=== PATIENT | female | born 1970 | race Caucasian/White ===

== ENCOUNTER 2018-11-27 20:56 | Emergency (ER) | payer MEDICAID ==
[~2018-11-27] VITALS: Ht 160 cm; Wt 165.6 kg
[2018-11-27 21:03] VITALS: Ht 160 cm; Wt 165.6 kg
[2018-11-28 01:52] VITALS: BP 129/89
== END 2018-11-28 01:52 | disposition home or self-care (01) ==
LOC: ED 20:56
DX: E11.40 Type 2 diabetes mellitus with diabetic neuropathy, unspecified (principal); M19.90 Unspecified osteoarthritis, unspecified site; E66.01 Morbid (severe) obesity due to excess calories; Z68.44 Body mass index [BMI] 60.0-69.9, adult; Z85.3 Personal history of malignant neoplasm of breast
CPT/HCPCS: Q0092

== ENCOUNTER 2018-12-10 10:54 | Emergency (ER) | payer MEDICAID ==
[~2018-12-10] VITALS: Ht 160 cm; Wt 148.3 kg
[2018-12-10 11:00] VITALS: Ht 160 cm; Wt 148.3 kg
[2018-12-10 11:43] LABS: BASOPHIL % 0.7 % (0-2); PLATELET COUNT 230 x10^3mcL (130-400); RED CELL DISTRIBUTION WIDTH 13.1 % (11.5-14.5)
[2018-12-10 12:00] LABS: CALCIUM 9.1 mg/dL (8.5-10.1); CARBON DIOXIDE 32.4 mmol/L (21-32); CHLORIDE SERUM 102 mmol/L (98-107); CREATININE SERUM 0.7 mg/dL (0.6-1.0); GFR1 > 60 mL/min; GLUCOSE SERUM 230 mg/dL (74-106); POTASSIUM SERUM 4.6 mmol/L (3.5-5.1); SODIUM SERUM 140 mmol/L (136-145)
[2018-12-10 12:05] LABS: ALBUMIN 3.8 g/dL (3.4-5.0); ALKALINE PHOSPHATASE 84 U/L (46-116); ALT/SGPT 50 U/L (14-59); AST/SGOT 25 U/L (15-37); BILIRUBIN TOTAL 0.3 mg/dL (0.20-1.00)
[2018-12-10 13:15] VITALS: BP 133/91
== END 2018-12-10 13:15 | disposition home or self-care (01) ==
LOC: ED 10:54
DX: R07.89 Other chest pain (principal); R10.32 Left lower quadrant pain; R50.9 Fever, unspecified; E11.9 Type 2 diabetes mellitus without complications; J44.9 Chronic obstructive pulmonary disease, unspecified; Z88.5 Allergy status to narcotic agent; Z98.890 Other specified postprocedural states
CPT/HCPCS: 36415; J1885

== ENCOUNTER 2018-12-17 16:06 | Inpatient (IN) | payer MEDICAID ==
[~2018-12-17] VITALS: Ht 160 cm; Wt 133.9 kg
--- NOTE | 2018-12-17 16:40 | NUR ---
PT PRESENTS TO ED WITH C/O OF RT SIDED FLANK PAIN. PT STS PAIN BEGAN X1 WK AGO. PT STS SHE HAS HAD EPISODES OF N/V "FOR WEEKS". PT WAS UNABLE TO AMBULATE FROM CAR TO GURNEY WITHOUT WHEELCHAIR ASSISTANCE. PT ALSO HAS MULTIPLE OTHER C/O HEAD ACHE, BILATERAL ARM PAIN, AND BACK PAIN. PT ALSO STS SHE HAS FELT HOT, BUT HAS NOT BEEN ABLE TO TAKE TEMP. PT AAOX4, RESP E/U, ON MONITOR, NO ACUTE DISTRESS NOTED AT THIS TIME.
[2018-12-17 17:27] LABS: BASOPHIL % 0.5 % (0-2); PLATELET COUNT 220 x10^3mcL (130-400); RED CELL DISTRIBUTION WIDTH 12.9 % (11.5-14.5)
[2018-12-17 17:30] LABS: CARBON DIOXIDE 30.8 mmol/L (21-32); CHLORIDE SERUM 102 mmol/L (98-107); CREATININE SERUM 0.9 mg/dL (0.6-1.0); GFR1 > 60 mL/min; GLUCOSE SERUM 143 mg/dL (74-106); POTASSIUM SERUM 3.9 mmol/L (3.5-5.1); SODIUM SERUM 141 mmol/L (136-145)
--- NOTE | 2018-12-17 17:30 | NUR ---
PT C/O DRY MOUTH BUT KEEPS REFUSING WATER TO DRINK. PT STS SHE NEEDS TO GO TO THE BATHROOM. PT GIVEN BED ZAMBRANO TO USE BUT STS ITS TOO PAINFUL TO USE. PT WAS ASKED IF SHE STILL NEEDED TO USE THE RESTROOM, PT STATED NO.
[2018-12-17 17:35] LABS: ALBUMIN 4.1 g/dL (3.4-5.0); ALKALINE PHOSPHATASE 93 U/L (46-116); ALT/SGPT 48 U/L (14-59); AST/SGOT 24 U/L (15-37); BILIRUBIN TOTAL 0.3 mg/dL (0.20-1.00); LIPASE 92 IU/L (73-393); TOTAL PROTEIN, SERUM 7.6 g/dL (6.4-8.2)
[2018-12-17 18:16] LABS: UA SPECIFIC GRAVITY >=1.030 (1.005-1.035); microscopic required? YES; urine erythrocyte NEGATIVE (NEGATIVE)
--- NOTE | 2018-12-17 18:47 | NUR ---
AT BEDSIDE TO DISCUSS PT PLAN OF CARE.
--- NOTE | 2018-12-17 19:12 | NUR ---
REPORT GIVEN TO MARTINA MOLINA TO ASSUME CARE OF PT.
--- NOTE | 2018-12-17 19:24 | NUR ---
PT MEDICATED PER ORDER. PT VERBALIZED UNDERSTANDING OF MEDICATION TEACHING. SEE EMAR FOR DETAILS.
[2018-12-17 19:39] LABS: CHOLESTEROL/HDL RATIO 6.4; MAGNESIUM 1.9 mg/dL (1.8-2.4); PHOSPHOROUS 4.1 mg/dL (2.5-4.9)
[2018-12-17] MEDS ORDERED: NAPROXEN500 MG PO (19:45)
[2018-12-17] MEDS ORDERED: NEU300 PO (19:46)
[2018-12-17] MEDS ORDERED: ONDANSETRON4 M3 PO (19:46)
[2018-12-17] MEDS ORDERED: TRAMADOL HCL50 MG PO (19:46)
[2018-12-17] MEDS ORDERED: LEVEMIR100 U/M1 (19:47)
--- NOTE | 2018-12-17 19:57 | NUR ---
PT LAYING IN BED IN POSITION OF COMFORT. PT HAS EYES CLOSED AND DOES NOT BE APPEAR TO BE IN SEVER PAIN. FRIEND AT BEDSIDE. RESP E/U. PT MEDICATED PER ORDER. WILL CONTINUE TO MONITOR.
--- NOTE | 2018-12-17 20:13 | NUR ---
REPORT CALLED TO WILLOW MACK TO ASSUME CARE. RN AWARE OF FLUIDS RUNNING ON TRANSFER .
[2018-12-17 20:23] LABS: AMPHETAMINE QUAL UR NONE DETECTED (See below)
--- NOTE | 2018-12-17 20:30 | NUR ---
RECEIVED PT VIA [facility] FROM E/D, ACCOMPANIED BY RN AND TRANSPORTER. PT A/A/O X 4, CALM, COOPERATIVE; C/O CONSTANT THROBBING H/A 01/31. PT ABLE TO AMBULATE WITHOUT GAIT OR BALANCE IMPAIRMENT, BUT REFUSES TO FURTHER WALK AFTER REACHING BED 2/2 PAIN; ALSO C/O CONSTANT ACHING TO B ARMS AND BACK 01/31. DENIES CHEST PAIN OR DISCOMFORT AT THIS TIME. LUNGS CTAB, CHEST RISING EVENLY, SOB, SHALLOW-BREATHING, 2LNC, 95%. ABD FIRM, DISTENDED, TENDERNESS TO RLQ AND R FLANK (CONSTANT, SHARP, 01/31), NORMOACTIVE BOWEL SOUNDS X 4 QUADS, LAST BM 12/17/18, SOFT. VOIDS FREELY, NO DYSURIA, STATES THAT SHE PASSED A STONE TODAY. IV SITE RAC 20G, CDI. ORIENTED PT TO ROOM, BED CONTROLS, CALL LIGHT SYSTEM. SIDE RAILS UP X 2, BED IN LOW POSITION. WILL ENDORSE TO MARTINA DAUGHERTY.
--- NOTE | 2018-12-17 20:44 | NUR ---
PT TRANSFERRED TO MED SURG FLOOR VIA GURNEY ACCOMPANIED BY EMT. NO S/S OF DISTRESS. RESP E/U. RN AWARE OF FLUIDS CONTINUING TO RUN. RN AT BEDSIDE TO ASSUME CARE OF PATIENT. IV SITE PATENT, NO S/S OF INFILTRATION.
[2018-12-17 21:36] VITALS: BP 93/60
--- NOTE | 2018-12-17 22:07 | NUR ---
PT C/O STABBING PAIN TO ABD 10/10. MEDICATED WITH NORCO.
--- NOTE | 2018-12-17 22:52 | NUR ---
ZOFRAN GIVEN FOR NAUSEA.
[2018-12-18] VITALS (10 sets, daily range): BP systolic 78–106; BP diastolic 38–73
--- NOTE | 2018-12-18 05:30 | NUR ---
PT C/O ABD PAIN 04/02. NORCO GIVEN.
[2018-12-18 06:57] LABS: BASOPHIL % 0.2 % (0-2); PLATELET COUNT 214 x10^3mcL (130-400); RED CELL DISTRIBUTION WIDTH 13.4 % (11.5-14.5)
--- NOTE | 2018-12-18 07:00 | NUR ---
PT RESTING IN BED. NO SOB ON O2 2L VIA NC. ON AND OFF NAUSEA/VOMITING. REFUSED ZOFRAN AT THIS TIME. NPO EXCEPT MEDS. SAFETY MEASURES MAINTAINED. CALL LIGHT WITHIN REACH. WILL ENDORSE CONTINUITY OF CARE TO ONCOMING RN.
[2018-12-18 07:15] LABS: CALCIUM 8.3 mg/dL (8.5-10.1); CARBON DIOXIDE 17.5 mmol/L (21-32); CREATININE SERUM 2.3 mg/dL (0.6-1.0); MAGNESIUM 1.6 mg/dL (1.8-2.4); PHOSPHOROUS 2.6 mg/dL (2.5-4.9); POTASSIUM SERUM 4.1 mmol/L (3.5-5.1)
--- NOTE | 2018-12-18 08:00 | NUR ---
RECEIVED PATIENT A/A/OX4; SPEECH CLEAR. NO TELE MONITOR. BREATHING SOUND DIMINISHED MARY BASES. O2 SAT 96% ON 2L VIA N/C. ABD OBESE/SOFT/TENDERNESS. C/O ABD PAIN ON 12/31. NORCO GIVEN AT 0540 BY NOC NURSE. NPO. IVF OF NS 150CC/HR. IV SITE TO RAC INTACT. URINE INCONT TIME. C/O N/V. DACK GREEN VOMITUS NOTED. CALL LIGHT IN REACH. NPO FOR SURGEON CONSULTATION AND POSSIBLE SURGERY.
--- NOTE | 2018-12-18 08:56 | NUR ---
DR. VARGAS AND MEDICAL TEAM MADE PASTOR ROUND. AWARE OF PATIENT'S ABD PAIN, BP LOW AND LACTIC ACID =7.4. ORDERED TO TRANSFER TO ICU.
--- NOTE | 2018-12-18 10:16 | NUR ---
PATIENT C/O ABD PAIN 01/31. DR. LAWSON AWARE OF. NORCO 7.5/325 PO GIVEN PER ORDER.
--- NOTE | 2018-12-18 10:38 | NUR ---
Discount pharmacy card and list to low cost medical clinics given to patient by Nilda.
--- NOTE | 2018-12-18 11:30 | NUR ---
TRIED SECOND IV INSERTION X2 BUT NOT SUCCESSFUL.
--- NOTE | 2018-12-18 12:00 | NUR ---
TRASFERED PATIENT TO ICU5, REPORT GIVEN TO MARTINA HERNANDEZ.
--- NOTE | 2018-12-18 12:10 | NUR ---
RECEIVED PT TRANSFERED FROM [facility] UNIT WITH PRIMARY NURSE AT BED SIDE. PT IS AA/O X4, PT COMPLAINING SEVER ABD PAIN AND NAUSEA. MOVEMENT INCREASING THE PAIN. PT IS BREATHIN ON O2 3L VIA NC, SHALLOW BREATHING. PT IS WAITING FOR SURGERY. CONNECT PT TO PRODUCT SUPPORT MANAGER, PT'S BP 89/38 (49), HR 107 BPM. IV BOLUS IS INFUSING.
--- NOTE | 2018-12-18 12:20 | NUR ---
ATTEMPED TO INSERT NGT, BUT UNSUCCESS. OR NURSE AT BED SIDE.
--- NOTE | 2018-12-18 12:45 | NUR ---
WELDING PANTOGRAPH MACHINE OPERATOR AT BEDSIDE FOR TYPE AND SCREEN.
--- NOTE | 2018-12-18 13:16 | NUR ---
PT TRANSFERRING TO OR, ZO RN FROM OR AND OTHER OR TECH AT BEDSIDE PUTTING CARDIC MONITOR AND PORTABLE O2 FOR SURGERY. B/P 88/55, MAP 68, HR 98 91% ON 3LO2 VIA NASAL CANNULA. PT IS AAOX4 ABLE TO FOLLOW VERBAL COMMANDS AND VERBALIZE NEEDS. PT IS PALE AND DIAPHORETIC. VANCO RUNNING AT 125ML/HR.
--- NOTE | 2018-12-18 16:50 | NUR ---
RECEIVED PT BACK FROM OR. PT IS INTUBATED 7.5 ETT, 24CM LL. PT HAD EXPRO LAP WITH BOWEL RESECTION WITH MID ABD LINE INCISION, CLOSED WITH SUTURE SECTION, TENSION SUTURE, 4X4 AND ABD PAD PER OR REPORT. SUNI DRAIN X 2 RLQ, COLONOSTOMY ON LQ, SEROUS DRAINAGE NOTED. RT SET PT ON VENT AC MODE: PEEP 5, VT 500, FIO2 100%, RR 14. MENON CATHETER IN PLACE, DRAINING VIA GRAVITY. PT IS AROUSABLE WITH AUDITORY AND TACTILE STIMULI. WILL CONTINUE TO MONITOR.
--- NOTE | 2018-12-18 17:17 | NUR ---
LOW INTERMITTENT SUCTION TO NG TO L NARES PER ORDER, DARK GREEN OUTPUT. 20ML OF OUTPUT.
--- NOTE | 2018-12-18 21:43 | NUR ---
MEDICATED PATIENT FOR COMPLAINTS OF PAIN WITH NORCO PER EMAR.
--- NOTE | 2018-12-18 22:29 | NUR ---
DR. ROONEY, ANESTHESIOLOGIST AT BEDSIDE FOR UPDATES, ALL QUESTIONS AND CONCERNS ANSWERED. HE RECOMMENDS WE SPEAK TO RESIDENTS. HE IS CONCERNED THAT THE PATIENT IS THIRD SPACING, THAT THE PT IS GOING INTO RENAL FAILURE A RESULT OF SEVERE DEHYDRATION AND THAT THE RATE OF LR SHOULD BE INCREASED. CALLED DR. CAVANAUGH, AND TOLD HIM WHAT DR. ROONEY HAD RECOMMENDED, ONLY 1L BOLUS OF NS WAS ORDERED. WILL FOLLOW THROUGH WITH ORDER.
--- NOTE | 2018-12-18 23:19 | NUR ---
RECIEVED PT FROM MARTINA MIMS. NURSING UPDATES. POC DISCUSSED. RECIEVED CARE OF PT. SEE SHIFT ASSESSMENT FOR ASSESSMENT.
[2018-12-19] VITALS (10 sets, daily range): BP systolic 78–109; BP diastolic 47–95
--- NOTE | 2018-12-19 00:13 | NUR ---
DR CAVANAUGH & DR MATHEW @ BEDSIDE. NURSING UPDATES. POC DISCUSSED. NOTIFIED OF LOWERING BP. AWAITING ORDER FOR ANOTHER BOLUS OF N/S.
[2018-12-19 00:30] LABS: PLATELET COUNT 146 x10^3mcL (130-400); RED CELL DISTRIBUTION WIDTH 14.1 % (11.5-14.5)
[2018-12-19 00:55] LABS: CARBON DIOXIDE 20.5 mmol/L (21-32)
[2018-12-19 01:01] LABS: POTASSIUM SERUM 5.7 mmol/L (3.5-5.1)
--- NOTE | 2018-12-19 01:01 | NUR ---
POTASSIUM CAME BACK AT 5.7, DR. CAVANAUGH MADE AWARE.
[2018-12-19 01:04] LABS: BAND NEUTROPHIL 28 % (0-10); METAMYELOCTE 5 % (0-2); MONOCYTE 8 % (0-7); MYELOCYTE 2 % (0-2); SEGMENTED NEUTROPHILS 39 % (37-75)
[2018-12-19 01:07] LABS: burr cell (echinocyte) 2+; rbc morphology (normal/abnorm) ABNORMAL (NORMAL); tear drop cell (dacryocyte) 1+
[2018-12-19 01:08] LABS: PLATELET MORPHOLOGY PLATELETS NORMAL
--- NOTE | 2018-12-19 01:50 | NUR ---
CALLED PHARM FOR TRANSFER OF KAYAXELATE TO [facility]. VERIFIED AND CONFIRMED AND GIVEN.
--- NOTE | 2018-12-19 02:56 | NUR ---
SPOKE TO DR. BENJAMIN OVER THE PHONE. ALL QUESTIONS AND CONCERNS ANSWERED. ORDERED ALBUMIN 25%, 100 ML ALBUMIN. WILL FOLLOW THROUGH WITH ORDER.
[2018-12-19 05:24] LABS: PLATELET COUNT 139 x10^3mcL (130-400); RED CELL DISTRIBUTION WIDTH 13.8 % (11.5-14.5)
[2018-12-19 05:40] LABS: CALCIUM 7.1 mg/dL (8.5-10.1); CARBON DIOXIDE 17.6 mmol/L (21-32); CREATININE SERUM 3.3 mg/dL (0.6-1.0); MAGNESIUM 1.8 mg/dL (1.8-2.4); PHOSPHOROUS 5.4 mg/dL (2.5-4.9)
--- NOTE | 2018-12-19 06:00 | NUR ---
Pt SELF EXTUBATED AT THIS TIME. DR. YEPEZ AWARE. HHN TX GIVEN AND PLACED ON 6L SIMPLE MASK POST TX. WILL MONITOR.
[2018-12-19 06:02] LABS: BAND NEUTROPHIL 28 % (0-10); METAMYELOCTE 5 % (0-2); MONOCYTE 7 % (0-7); MYELOCYTE 3 % (0-2); PROMYELOCYTE 2 % (0-0); SEGMENTED NEUTROPHILS 38 % (37-75); rbc morphology (normal/abnorm) ABNORMAL (NORMAL)
[2018-12-19 06:03] LABS: PLATELET MORPHOLOGY PLATELETS DECREASED; burr cell (echinocyte) 2+; tear drop cell (dacryocyte) 1+
--- NOTE | 2018-12-19 06:08 | NUR ---
WHILE PROVIDING PATIENT WITH BED BATH, PT GRABBED HOLD OF ETT TUBE AND YANKED IT OUT. RT CALLED TO BEDSIDE, SPOKE TO DR PIERRE VIA TELEPHONE AND MADE HER AWARE OF SELF EXTUBATION. PT PLACED ON NON REBREATHER WITH AN O2 SATURATION OF 92%. DOES NOT APPEAR TO BE IN ANY DISTRESS, AND LUNG SOUNDS ARE CLEAR. DR. YEPEZ AT BEDSIDE.
--- NOTE | 2018-12-19 06:38 | NUR ---
PT CONTINUING ON 5L NON REBREATHER. NO STRIDOR NOTED. CLEAR LUNG SOUNDS NOTED. PT DOES NOT APPEAR TO BE IN ANY DISTRESS AT THIS TIME. O2 SATURATION AT 93%.
--- NOTE | 2018-12-19 07:20 | NUR ---
RECIEVED PT AAOX4. ABLE TO FOLLOW COMMANDS. RESPONDS TO VERBAL, TACTILE, AND PAINFUL STIMULUS. DENIES HEADACHE. PERRL. ON SIMPLE FACE MASK @ 8 LPM. BREATHING E/U. SYMMETRICAL CHEST WALL EXPANSION NOTED. NO SIGNS OF RESP DISTRESS NOTED. SINUS TACHYCARDIA. DENIES CP OR SOB. EENT FREE OF DISCHARGE. NO JVD PRESENT. TRACHEA MIDLINE. ABD IS ROUNDED. S/P LAP WITH 2 SUNI DRAINS TO RLQ. ABD PAD DRESSING CDI. LLQ COLOSTOMY INTACT AND SECURED, DRAINING SCANT SANGINOUS FLUID. STOMA IS RED. SKIN IS WARM/DRY TO TOUCH, PINK IN COLOR. PIV TO R AC INTACT, PORT PATENT, DRESSING CDI. LR @ 200 ML/HR. SCD TO BLE. BED IN LOWEST POSITION, X3 SIDE RAILS UP, CALL LIGHT WITHIN REACH.
--- NOTE | 2018-12-19 07:20 | NUR ---
RECEIVED REPORT FROM ANDREA MACK. ALL QUESTIONS ANSWERED AND ADDRESSED. WILL RESUME CARE OF PT.
--- NOTE | 2018-12-19 08:05 | NUR ---
DR ROONEY AT BEDSIDE TO ASSESS PATIENT. UPDATES PROVIDED BY NURSING.
--- NOTE | 2018-12-19 08:15 | NUR ---
DR ROACH AT BEDSIDE TO ASSESS PATIENT. POC DISCUSSED BEDSIDE.
--- NOTE | 2018-12-19 08:30 | NUR ---
SUZAN GREEN AT BEDSIDE. PATIENT REMOVED FROM FACE MASK AT 5LPM AND PLACED ON HIGH FLOW AT 30 LPM AT 45% PER DR ROACH ORDER. PATIENT SPO2 AT 92%. WILL CONTINUE TO MONITOR.
--- NOTE | 2018-12-19 08:50 | NUR ---
DR JONES AND RESIDENTS ROUNDING. POC DISCUSSED BEDSIDE WITH PATIENT. ALL QUESTIONS AND CONCERNS ADDRESSED.
--- NOTE | 2018-12-19 09:23 | NUR ---
PATIENT'S SISTER THERESE RAMIREZ AT BEDSIDE. PATIENT UPDATE PROVIDED BY NURSING.
--- NOTE | 2018-12-19 10:14 | NUR ---
PATIENT GIVEN EZPAP BREATHING TREATMENT AT 0810 AM AND WAS ABLE TO HOLD THE MOUTHPIECE UNASSISTED. POST TX, PATIENT WAS PLACED ON HIGH FLOW NC AT APPROX 0830 AT 30LPM, 45% FIO2. SPO2 92-93% ON THESE SETTINGS. PT TACHYPNIC BUT CLAIMS SHE IS NOT SOB. WILL CONTINUE TO MONITOR. VENT LEFT IN PTS ROOM BEDSIDE FOR THE TIME BEING.
--- NOTE | 2018-12-19 13:14 | NUR ---
DR MIRANDA TELEPHONED PATIENT'S SISTER THERESE RAMIREZ AND SPOKE TO HER REGARDING PATEINT'S NEED FOR H.D. CATHETER, CENTRAL LINE PLACEMENT, AND CENTRAL LINE PLACEMENT. DR MIRANDA DISCUSSED BENEFITS AND RISKS WITH THERESE. ALL QUESTIONS AND CONCERNS ADDRESSED. TELEPHONE CONSENT OBTAINED AND WINESSED BY MYSELF.
--- NOTE | 2018-12-19 13:37 | NUR ---
PER MD ORDER, PATIENT ADMINISTERED 80 MG LASIX IVP.
--- NOTE | 2018-12-19 15:06 | NUR ---
DR. YEPEZ, RESIDENTS, AND [employer] TECH AT BEDSIDE PERFORMING RIGHT PRINCE CATHETER PLACEMENT AND LIJ CVC PLACEMENT. CONSENT SIGNED AND TIME-OUT COMPLETED. ATIVAN GIVEN PER DR'S ORDERS. WILL CONT TO MONITOR.
--- NOTE | 2018-12-19 16:24 | NUR ---
PT UNAVAILABLE FOR HHN TX AT THIS TIME. STERILE PROCEDURE IN PROCESS.
--- NOTE | 2018-12-19 18:38 | NUR ---
LLQ COLOSTOMY LEAKING FROM BOTTOM. PT CLEANED AND COLOSTOMY DRESSING AND BAG CHANGED. 30ML OF SANGUINEOUS OUTPUT NOTED.
[2018-12-19 18:52] LABS: CALCIUM 7.3 mg/dL (8.5-10.1); CARBON DIOXIDE 22.8 mmol/L (21-32); CREATININE SERUM 3.8 mg/dL (0.6-1.0); MAGNESIUM 1.7 mg/dL (1.8-2.4); PHOSPHOROUS 5.5 mg/dL (2.5-4.9); POTASSIUM SERUM 5.4 mmol/L (3.5-5.1)
--- NOTE | 2018-12-19 19:15 | NUR ---
RECIEVED PT FROM MARTINA SENIOR. NURSING UPDATES. POC DISCUSSED. SEE SHIFT ASSESSMENT FOR ASSESSMENT.
--- NOTE | 2018-12-19 23:13 | NUR ---
HD FINISHED. NOTED 1L OUTPUT. WILL ENDORSE. NO ACUTE CHANGES. PT TOLERATED WELL. PRINCE DRESSING CHANGED. WILL ENDORSE.
[2018-12-20] VITALS (13 sets, daily range): BP systolic 107–125; BP diastolic 32–79
--- NOTE | 2018-12-20 02:31 | NUR ---
PT COMPLAIN OF PAIN 7/10. ADMINISTERED PRN (SEE MAR) MORPHINE SULPHATE FOR PAIN 10. PT TOLERATED WELL. WILL CONT TO MONITOR.
[2018-12-20 05:41] LABS: PLATELET COUNT 114 x10^3mcL (130-400); RED CELL DISTRIBUTION WIDTH 14.8 % (11.5-14.5)
[2018-12-20 05:47] LABS: CALCIUM 7.7 mg/dL (8.5-10.1); CARBON DIOXIDE 25.5 mmol/L (21-32); CREATININE SERUM 3.6 mg/dL (0.6-1.0); MAGNESIUM 1.8 mg/dL (1.8-2.4); PHOSPHOROUS 4.4 mg/dL (2.5-4.9); POTASSIUM SERUM 4.7 mmol/L (3.5-5.1)
[2018-12-20 05:50] LABS: BAND NEUTROPHIL 28 % (0-10); METAMYELOCTE 5 % (0-2); MONOCYTE 7 % (0-7); MYELOCYTE 3 % (0-2); PROMYELOCYTE 2 % (0-0); SEGMENTED NEUTROPHILS 38 % (37-75); rbc morphology (normal/abnorm) ABNORMAL (NORMAL)
[2018-12-20 05:51] LABS: PLATELET MORPHOLOGY PLATELETS DECREASED; burr cell (echinocyte) 2+; tear drop cell (dacryocyte) 1+
--- NOTE | 2018-12-20 07:05 | NUR ---
RECIEVED REPORT FROM ANRDEA MACK. UPDATES PROVIDED. WILL RESUME CARE
--- NOTE | 2018-12-20 10:23 | NUR ---
PT STATING 10/10 PAIN TO HER ABDOMEN. MEDICATED WITH MORPHINE 2MG PER EMAR. WILL CONT TO MONITOR.
--- NOTE | 2018-12-20 12:30 | NUR ---
DR. ROACH AT BEDSIDE ASSESSING PT. DUE TO PT'S SHALLOW BREATHING O2 SAT 92% , ORDERED FOR PT TO HAVE BREATHING TX, REPEAT ABG AND POSSIBLE REINTUBATION. WILL NOTIFY DR. ROACH WITH ABG RESULTS. RT AT BEDSIDE FOR BREATHING TX.
--- NOTE | 2018-12-20 12:33 | NUR ---
PT TURNED AND REPOSITIONED TO L SIDE. UNABLE TO ASSESS FULL BACK DUE TO PT BEING IN PAIN.
--- NOTE | 2018-12-20 12:55 | NUR ---
ABG RESULTS CAME BACK: PH 7.29, 46.2 PCO2, 64.4 PO2, HCO3 21.9. DR. ROACH NOTIFIED AND STATED TO CALL ER TO INTUBATE.
--- NOTE | 2018-12-20 13:35 | NUR ---
DR. KING AT BEDSIDE WITH CARMINA RT AND OTHER RT, KENY RN, BERNARDO RN, AND I. ETIM 20 MG AND SUCC 80 MG GIVEN @ 1335. PT SUCCESSFULLY INTUBATED @ 1336. O2 SAT OF 99%, HR = 98. DR. ROACH MADE AWARE AND STATED FOR VENT SETTINGS TO BE 8 PEEP, 100% FIO2, 550 VT, 16 RATE AND FOR FENTANYL AND VERSED TO BE ORDERED FOR SEDATION.
--- NOTE | 2018-12-20 13:36 | NUR ---
B/E SOFT WRIST RESTRAINTS APPLIED TO PT PER DR. YEPEZ FOR PREVENTION OF REMOVING TUBES AND RISK OF INJURY OF PT. SEE RESTRAINT PAPER FOR DETAILS
[2018-12-20 14:27] LABS: CALCIUM 7.6 mg/dL (8.5-10.1); CARBON DIOXIDE 25.1 mmol/L (21-32); MAGNESIUM 1.7 mg/dL (1.8-2.4); PHOSPHOROUS 4.4 mg/dL (2.5-4.9); POTASSIUM SERUM 4.9 mmol/L (3.5-5.1)
--- NOTE | 2018-12-20 14:29 | NUR ---
INITIATED FENTANYL @ 1MCG/KG/HR AND VERSED @ 1MG/HR TO ACHIEVE RSS = 4.
--- NOTE | 2018-12-20 15:02 | NUR ---
DR. BENJAMIN MADE AWARE THAT PT'S X-RAY STATES THAT THERE IS GASSEOUS FLUID IN ABD AND FOR DR. ROACH ASKING TO MAKE THE OGT TO CONTINUOUS SUCTION INSTEAD OF INTERMITTENT SUCTION. DR. BENJAMIN SAYS OK TO FOR OGT TO BE CONTINUOUS SUCTION. 860 ML OF GREEN OUTPUT NOTED TO SUCTION CANISTER AND NEW ONE PLACED.
--- NOTE | 2018-12-20 16:29 | NUR ---
TITRATED FENTANYL TO 0.5 MCG/KG/HR.
--- NOTE | 2018-12-20 17:20 | NUR ---
COLOSTOMY BAG CHANGED. STOMA APPEARS TO BE INVERTED AND DARK IN COLOR. STOOL IS RONI IN COLOR AND SOFT/FORMED. ABD DRESSINGS CHANGED. CHG WIPES APPLIED, MENON CARE COMPLETED, AND GOWN CHANGED.
--- NOTE | 2018-12-20 19:05 | NUR ---
RECEIVED REPORT FROM PARRISH MACK. ASSUMING ALL CARE
--- NOTE | 2018-12-20 19:05 | NUR ---
REPORT GIVEN TO LEONID MACK. ALL QUESTIONS ANSWERED AND ADDRESSED. WILL ENDORSE CARE
--- NOTE | 2018-12-20 19:15 | NUR ---
RECEIVED PT LAYING IN BED. PT IS INTUBATED AND SEDATED ON FENTANYL @ 0.5 MCG/KG/HR AND VERSED @ 1 MG/HR. PT RESPONDS TO VERBAL STIMULI. RSS=4. PT ABLE TO FOLLOW COMMANDS. GAG REFLEX PRESENT. PUPILS WITH BRISK RESPONSE TO LIGHT, 4 MM BILAT. 7.5 ETT INTACT/SECURED, 24 CM @ LL. LEFT NARE NGT PLACED ON CONT SUCTION WITH BILE COLORED DRAINAGE NOTED. ORAL CARE PROVIDED PER VAP PROTOCOL. RIJ PRINCE AND LIJ CVC IN PLACE WITH DRESSING CDI. BREATHING IS E/U ON VENT. VENT SETTINGS: VCV AC MODE, RATE 20, FIO2 40%, VT 600, PEEP 10. FINE CRACKLES NOTED TO BUL AND DIMIN TO BLL. SYMMETRICAL CHEST EXPANSION NOTED. S1/S2 HEART SOUNDS AUSCULTATED. CHEST WALL EQUAL AND SYMMETRICAL. NO S/S OF CP NOTED. HR 83, BP 110/75 MAP 86. WEAK PULSES X4 EXTREMITIES. SKIN IS WARM AND DRY. + 1 PITTING EDEMA NOTED TO BUE AND +2 EDEMA NOTED TO BLE. LR INFUSING @ 150 ML/HR. SCD IN PLACE. PT ON BEDREST. GENERALIZED WEAKNESS. NO JOINT SWELLING/DEFORMITY NOTED. PT ON BILAT SOFT WRIST RESTRAINT FOR PT SAFETY, GOOD CIRCULATION NOTED BILAT. PT ON ISOGEL MATTRESS. PT IS NPO AT THIS TIME. ABD IS ROUND/NONTENDER TO PALPATION. S/P LAP WITH ABD INCISION/ PAD IN PLACE WITH DRESSING CDI. 2 SUNI DRAINS NOTED TO RLQ DRAINING SEROSANGUINOUS FLUID. LLQ COLOSOTMY INTACT/SECURED WITH NO DRAINAGE NOTED AT THIS TIME. STOMA APPEARS INVERTED AND DARK IN COLOR. BOWEL SOUNDS HYPOACTIVE X4 QUADRANTS. MENON IS INTACT/SECURED, DRAINING VIA GRAVITY WITH YELLOW COLORED URINE. PT ON TURN SCHED Q2H AND PRN FOR COMFORT. BED IN LOW POSITION. CALL LIGHT IN REACH. WILL CONT TO MONITOR
--- NOTE | 2018-12-20 20:11 | NUR ---
RT AT BEDSIDE FOR BREATHING TREATMENT
--- NOTE | 2018-12-20 21:30 | NUR ---
DR. MUÑOZ AT BEDSIDE. UPDATED ON PT'S STATUS. PER DR. MUÑOZ, WILL DC LR INFUSION AND CHANGE D5NS TO 50 ML/HR. WILL CARRY OUT ORDER.
--- NOTE | 2018-12-20 23:04 | NUR ---
AXILLARY TEMP 99.8. COOLING MEASURES IN PLACE.
[2018-12-21] VITALS (19 sets, daily range): BP systolic 101–181; BP diastolic 15–91
--- NOTE | 2018-12-21 02:15 | NUR ---
FULL BED BATH PROVIDED. PERICARE, ORAL, AND MENON CARE PROVIDED. HEELS OFFLOADED. WILL CONT TO MONITOR
--- NOTE | 2018-12-21 04:15 | NUR ---
RT AT BEDSIDE FOR BREATHING TREATMENT
[2018-12-21 05:17] LABS: RED CELL DISTRIBUTION WIDTH 14.4 % (11.5-14.5)
[2018-12-21 05:23] LABS: PLATELET COUNT 119 x10^3mcL (130-400)
[2018-12-21 05:47] LABS: BAND NEUTROPHIL 16 % (0-10); METAMYELOCTE 1 % (0-2); MONOCYTE 6 % (0-7); MYELOCYTE 2 % (0-2); SEGMENTED NEUTROPHILS 56 % (37-75)
[2018-12-21 05:51] LABS: CALCIUM 8.2 mg/dL (8.5-10.1); CARBON DIOXIDE 22.6 mmol/L (21-32); MAGNESIUM 2.1 mg/dL (1.8-2.4); PHOSPHOROUS 3.2 mg/dL (2.5-4.9); POTASSIUM SERUM 4.1 mmol/L (3.5-5.1)
[2018-12-21 05:53] LABS: CREATININE SERUM 4.7 mg/dL (0.6-1.0); PLATELET MORPHOLOGY PLATELETS DECREASED; burr cell (echinocyte) 1+; rbc morphology (normal/abnorm) ABNORMAL (NORMAL)
--- NOTE | 2018-12-21 06:28 | NUR ---
X-RAY TECH AT BEDSIDE.
--- NOTE | 2018-12-21 06:44 | NUR ---
SPOKE TO DR. BENJAMIN VIA TELEPHONE. UPDATED ON PT'S STATUS. MADE AWARE NO OUTPUT WAS NOTED FROM NGT. PER DR. BENJAMIN, ORDER KUB. CHANGE CONT SUCTION TO MEDIUM INTERMITTENT SUCTION. ORDER READ BACK AND IN AGREEMENT. WILL CARRY OUT ORDER.
--- NOTE | 2018-12-21 07:00 | NUR ---
RECIEVED REPORT FROM LEONID MACK. UPDATES PROVIDED. WILL RESUME CARE.
--- NOTE | 2018-12-21 07:00 | NUR ---
RECIEVED PT INTUBATED AND SEDATED ON FENT @ 0.5 MCG/KG/HR AND VERSED @ 1 MG/HR. ABLE TO FOLLOW COMMANDS. RESPONDS TO VERBAL, TACTILE, AND PAINFUL STIMULUS. RSS = 4. PUPILS 3MM IN SIZE AND BRISK B/E. GESTURES IN RESPONSE TO QUESTIONS. 7.5 ETT @ 24 LL. L NARE NGT TO MEDIUM INTERMITTENT SUCTION, DRAINING GREEN OUTPUT. TRACHEA MIDLINE. LIJ CVC INTACT, X3 PORTS PATENT, DRESSING CDI. RIJ PRINCE CATH INTACT, DRESSING DCI. ABD IS ROUNDED. HYPOACTIVE BOWEL SOUNDS X4. S/P LAP ABD INCISION WITH ABD PAD DRESSING CDI. 2 SUNI DRAINS TO RLQ WITH SANGUINEOUS IN DRAIN. LLQ COLOSTOMY INTACT, RONI COLORED SOFT STOOL IN BAG, STOMA APPEARS TO BE INVERTED AND DARK. SKIN IS WARM/DRY TO TOUCH, PINK IN COLOR. +1 EDEMA TO BUE AND +2 PITTING EDEMA TO BLE. CAP REFILL <3 SEC. D5NS INFUSING @ 50 ML/HR. SCD TO BLE APPLIED. ON ISOGEL MATTRESS. B/E SOFT WRIST RESTRAINTS APPLIED. JOINTS INTACT, NO JOINT SWELLING NOTED. NO CONTRACTURES NOTED. X3 SIDE RAILS UP, BED IN LOWEST POSITON, HOB 30 DEGREES. WILL RESUME CARE OF PT.
--- NOTE | 2018-12-21 07:05 | NUR ---
REPORT GIVEN TO PARRISH MACK. ALL QUESTIONS/CONCERNS ADDRESSED AT THIS TIME. ENDORSING ALL CARE
--- NOTE | 2018-12-21 09:15 | NUR ---
PT'S SISTER (THERESE) STATES THAT PT IS CURRENTLY HOUSING AT A LOCAL [facility] WHERE THE PT LIVES. SHE STATES THAT THE [facility] NEEDS TO KNOW WHEN OR HOW LONG IT WILL BE FOR THE PT TO RETURN BACK BECAUSE THERE IS A CERTAIN AMOUNT OF TIME AND REQUIREMENTS THAT ARE NEEDED TO BE LIVING THERE. POSSIBLE CONSULT WITH CASE MANAGEMENT ABOUT DISCHARGE IF THE [facility] DOES NOT ALLOW HER BACK BECAUSE OF HER CONDITIONS THAT NEED TO BE TENDED TO AFTER THIS HOSPITAL STAY.
--- NOTE | 2018-12-21 09:24 | NUR ---
PATIENT ROUNDS WITH DR. JONES AND RESIDENTS. CHARGE NURSE AND PRIMARY NURSE AT BEDSIDE. UPDATES PROVIDED AND POC DISCUSSED. PLAN FOR HEMODIALYSIS TODAY, LORETTA AVILA NURSE MADE AWARE. MARTINA SENIOR MADE AWARE. WILL CONTINUE TO MONITOR.
--- NOTE | 2018-12-21 14:17 | NUR ---
DIALYSIS NURSE, TON, AT BEDSIDE PREPARING FOR HD.
--- NOTE | 2018-12-21 17:45 | NUR ---
HD COMPLETED. 2L OUT. NO DISTRESS OR COMPLICATIONS AT THIS TIME. PT TOLERATED WELL.
--- NOTE | 2018-12-21 19:10 | NUR ---
REPORT GIVEN TO LEONID MACK. UPDATES PROVIDED. WILL ENDORSE CARE.
--- NOTE | 2018-12-21 19:10 | NUR ---
RECEIVED REPORT FROM PARRISH MACK. ASSUMING ALL CARE
--- NOTE | 2018-12-21 19:15 | NUR ---
RECEIVED PT LAYING IN BED. PT IS INTUBATED AND SEDATED ON FENTANYL @ 0.5 MCG/KG/HR AND VERSED @ 2 MG/HR. PT RESPONDS TO VERBAL STIMULI. RSS=4. PT ABLE TO FOLLOW COMMANDS. GAG REFLEX PRESENT. 7.5 ETT INTACT/SECURED, 24 CM @ LL. LEFT NARE NGT PLACED ON MEDIUM INTERMITTENT SUCTION, BILE COLORED DRAINAGE NOTED. ORAL CARE PROVIDED PER VAP PROTOCOL. RIJ PRINCE AND LIJ TLC CVC IN PLACE WITH DRESSING CDI. BREATHING IS E/U ON VENT. VENT SETTINGS: VCV AC MODE, RATE 20, FIO2 40%, VT 600, PEEP 10. COURSE CRACKLES NOTED TO BUL AND DIMIN TO BLL. SYMMETRICAL CHEST EXPANSION NOTED. HR 82, BP 114/74 MAP 91. WEAK PULSES X4 EXTREMITIES. SKIN IS WARM AND DRY. + 1 PITTING EDEMA NOTED TO BUE AND +2 EDEMA NOTED TO BLE. D5NS INFUSING @ 50 ML/HR. SCD IN PLACE. PT ON BILAT SOFT WRIST RESTRAINT FOR PT SAFETY, GOOD CIRCULATION NOTED BILAT. PT ON ISOGEL MATTRESS. PT IS NPO AT THIS TIME. ABD IS OBESE. S/P LAP WITH ABD INCISION/ PAD IN PLACE WITH DRESSING CDI. 2 SUNI DRAINS NOTED TO RLQ DRAINING SEROSANGUINOUS FLUID. LLQ COLOSTOMY INTACT/SECURED DRAINING BROWN COLORED STOOL, STOMA APPEARS DARK IN COLOR/INVERTED. BOWEL SOUNDS HYPOACTIVE X4 QUADRANTS. MENON IS INTACT/SECURED, DRAINING VIA GRAVITY WITH YELLOW COLORED URINE. PT ON TURN SCHED Q2H. BED IN LOW POSITION. CALL LIGHT IN REACH. WILL CONT TO MONITOR
--- NOTE | 2018-12-21 19:45 | NUR ---
DR. YEPEZ AT BEDSIDE FOR ABD INCISION DRESSING CHANGE. ABD INCISION PACKED WITH IODOFORM, ABD PAD PLACED INTACT/SECURED.
--- NOTE | 2018-12-21 22:22 | NUR ---
DR. MUÑOZ AT BEDSIDE. UPDATED ON PT'S STATUS. PER DR. MUÑOZ, DC D5NS AND ORDER D5 @ 50 ML/HR. WILL CARRY OUT ORDER
--- NOTE | 2018-12-21 23:25 | NUR ---
RT AT BEDSIDE FOR BREATHING TREATMENT
[2018-12-22] VITALS (13 sets, daily range): BP systolic 102–1222; BP diastolic 66–80
--- NOTE | 2018-12-22 03:50 | NUR ---
RT AT BEDSIDE FOR BREATHING TREATMENT
--- NOTE | 2018-12-22 04:30 | NUR ---
FULL BED BATH PROVIDED. GOWN AND LINENS CHANGED. ORAL CARE, PERICARE, AND MENON CARE PROVIDED. HEELS OFFLOADED. CENTRAL LINE DRESSING CHANGED. BED IN LOW POSITION. WILL CONT TO MONITOR.
--- NOTE | 2018-12-22 05:05 | NUR ---
PERFORATOR OPERATOR OIL WELL AT BEDSIDE FOR AM LAB DRAW
[2018-12-22 05:19] LABS: BASOPHIL % 0.2 % (0-2); RED CELL DISTRIBUTION WIDTH 14.5 % (11.5-14.5)
[2018-12-22 05:22] LABS: PLATELET COUNT 127 x10^3mcL (130-400)
[2018-12-22 05:39] LABS: CALCIUM 8.4 mg/dL (8.5-10.1); CARBON DIOXIDE 25.4 mmol/L (21-32); MAGNESIUM 1.8 mg/dL (1.8-2.4); POTASSIUM SERUM 3.6 mmol/L (3.5-5.1)
[2018-12-22 05:50] LABS: CREATININE SERUM 4.2 mg/dL (0.6-1.0)
--- NOTE | 2018-12-22 07:05 | NUR ---
REPORT GIVEN TO GERMAINE MACK. ALL QUESTIONS/CONCERNS ADDRESSED AT THIS TIME. ENDORSING ALL CARE
--- NOTE | 2018-12-22 07:35 | NUR ---
PATIENT IS IN BED, BED IS TO THE LOWEST POSITION. PATIENT IS INTUBATED AND SEDATED ON FENTANYL INFUSING AT 0.5 MCG/KG/HR AND VERSED INFUSING AT 2 MG/HR. RSS: 4. 7.5 ETT AT 24 LL. PATIENT IS VENTED ON AC MODE AT A RATE OF 20, TIDAL VOLUME OF 600, FIO2 OF 40%, AND PEEP OF 10. PATIENT IS BREATHING ADEQUATELY AND THERE ARE NO SIGNS OF RESPIRATORY DISTRESS NOTED. PATIENT IS ABLE TO FOLLOW SIMPLE COMMANDS, BY SQUEEZING HANDS AND NODDING TO YES OR NO QUESTIONS.CHIEF ARSON DIVISION IN PLACE, NSR. PATIENT HAS RIJQ IV ACCESS FOR DIALYSIS. LIJ ACCESS. D5 IS INFUSING AT 50 ML/HR. L NARE NGT NOTED, WITH MEDIUM INTERMITTIENT SUCTION. 2 SUNI DRAINS NOTED TO ANTERIOR PORTION OF ABDOMEN, SEROUS FLUID NOTED. ABD INCISION NOTED, WITH PADDING. LLQ COLOSTOMY BAG NOTED WITH FORMED DARK BROWN STOOL. BILATERAL SOFT WRIST RESTRAINTS, CAP REFILL LESS THAN 3 SECONDS, 2 FINGER SPACE NOTED. HEELS ARE OFF LOADED WITH PILLOWS, PATIENT STABLE, WILL CONTINUE TO MONITOR.
--- NOTE | 2018-12-22 10:52 | NUR ---
MACHINE CASTINGS PLASTERER AT BEDSIDE, ALL UPDATES GIVEN. NO FURTHER ORDERS AT THIS TIME.
--- NOTE | 2018-12-22 11:56 | NUR ---
DR ROACH AT BEDSIDE, ALL UPDATES PROVIDED. PER DR ROACH, SHE WOULD LIKE VERSED DECREASED TO 0.5 MG/HR. SHE WOULD LIKE TO ATTEMPT CPAP. SEDATION DECREASED, PATIENT STABLE, WILL CONTINUE TO MONITOR.
--- NOTE | 2018-12-22 12:00 | NUR ---
PER RT, PEEP CHANGED TO 5 AND RATE CHANGED TO 16 AT THIS TIME. PATIENT STABLE, WILL CONTINUE TO MONITOR.
--- NOTE | 2018-12-22 12:11 | NUR ---
NEW VENTILATOR ORDER PER DR. ROACH TO DECREASE RR TO 16 AND PEEP TO +5, ICU WIND TURBINE ERECTOR KARINA AND ENAMEL BUFFER GERMAINE AWARE.
--- NOTE | 2018-12-22 13:41 | NUR ---
DR DELEON AT BEDSIDE, ALL UPDATES GIVEN, NO FURTHER ORDERS AT THIS TIME.
--- NOTE | 2018-12-22 13:41 | NUR ---
DR MIRANDA AT BEDSIDE, ALL UPDATES GIVEN. NO FURTHER ORDERS AT THIS TIME.
--- NOTE | 2018-12-22 14:08 | NUR ---
PLACED PT ON CPAP +5 AND PSV +12 WITH FIO2 40% PER DR. ROACH ORDER, ICU TOOL SHARPENER KARINA AND WAVE GUIDE ASSEMBLER GERMAINE BLACKMAN.
--- NOTE | 2018-12-22 14:13 | NUR ---
PER RT, CPAP STARTED AT THIS TIME.
--- NOTE | 2018-12-22 14:35 | NUR ---
Initial Nutrition Assessment: IC05 LIZABETH SHEN MR Dx: Perforated bowel PMHx: DM, COPD with LUC, breast cancer in remission PSHx: Other (L ovarian removal), unspecified tumor removal, LLE Labs: BG 164H, BUN 48H, CREAT 4.2H Meds: D 50%, humulin, lantus, Lasix, Lipitor, Pepcid, Zofran, zosyn, heparin Diet: NPO (post op ileus) PO Intake: NPO Ht: 160.02 cm (63") Wt: 158.7 kg (349#) BMI: 62 kg.m2 (morbid obesity) Bed scale: 349# IBW: 115# (52 kg) %IBW: 303 UBW: Age: 48/F Food Allergies: NKFA Skin: SUNI drain to RLQ, Abd incision Harvey: 13 Edema: +2 BUE/BLE GI: colonostomy at LLQ, formed stools Last BM: 12/21 Per H&P, Pt is a 48yoF with PMH DM, COPD with LUC, breast cancer in remission who presented to the ED c/o acute-onset LLQ abdominal pain with associated diarrhea, nausea/vomiting, and subjective fever/chills worsening x1 day. RDN Visit (12/22): Per progress note (12/22) POD day 4: Sigmoid resection with colostomy for sigmoid diverticulitis. Patient remains intubated. Patient underwent dialysis yesterday. BUN on 12/21: 56, Creatinine: 4.7. Patient is sedated on fentanyl and is on ventilator. Per bed huddles, pt to be NPO until possible extubation today. Per MD, Pt will not be starting PPN today d/t possible extubating tomorrow. Problem with: N/V/D/C: unable to access Problems with: Chewing/Swallowing: unable to access Current appetite: unable to access Recent wt change: unable to access %wt change: N/A Vitamin/Supplement use: unable to access Special diet at home: unable to access Physical activity: unable to access Nutrition education given: Inappropriate at this time d/t patient's condition Food-drug interactions: Lasix- increase K, Mg intake Education given: no Estimated Nutritional Needs Based on adjusted body weight 79 kg Energy: 2897-1158 vs 2350 kcal/d (20-25 kcal/kg vs [facility] Equation (PSU) 2003b) Protein: 79-95 g/d (1.0-1.2 g/kg) - preserve LBM Fluid: per doctor Nutrition Diagnosis 1. Inadequate oral intake related to medical condition as evidenced by NPO day 4. Intervention 1. Recommend COATING MANAGER eval post extubation to determine diet consistency. 2. Recommend CCHO diet (texture per COATING MANAGER eval) Monitor/Evaluate Goal: PO intake at least 75% of estimated needs Monitor: PO intake, Labs, GI function F/U in 2-3 days as high risk 7/3-4
--- NOTE | 2018-12-22 14:35 | NUR ---
1. Recommend BOOK REVIEWER eval post extubation to determine diet consistency. 2. Recommend CCHO diet (texture per BOOK REVIEWER eval)
--- NOTE | 2018-12-22 17:06 | NUR ---
EXTUBATION DONE AT THIS TIME, WITH DR YEPEZ AND RT. EDUCATED PATIENT TO NOT TO TALK TOO MUCH, AND THAT THROAT WILL BE SORE AT THIS TIME. PATIENT NODDED, AN UNDERSTANDING. PATIENT STABLE, WILL CONTINUE TO MONITOR.
--- NOTE | 2018-12-22 17:16 | NUR ---
DR. BENJAMIN AT BEDSIDE ASSESSING, AND CHANGING ABD DRESSING.
--- NOTE | 2018-12-22 19:00 | NUR ---
RECEIEVED PT REPORT FROM MARTINA HERRON. QUESTIONS AND CONCERNS ADDRESSED.
--- NOTE | 2018-12-22 19:15 | NUR ---
WENT INTO PATIENT ROOM AND PATIENT PULLED OUT NGT, NO TRAUMA TO NOSE, PT 02 SAT AT 98% ON 4L OXIMYZER AT THIS TIME. UNABLE TO PLACE NGT AFTER 3 ATTEMPTS, NOTIFIED DR. HORTON ABOUT BEING UNABLE TO PLACE NGT.
--- NOTE | 2018-12-22 19:20 | NUR ---
RECEIEVED PT LAYING IN BED, SITTING HIGH FOWLERS, A&O X3, FOLLOWS COMMANDS, ABLE TO MAKE NEEDS KNOWN, GCS OF 13. PT ON 4 L OXIMYZER, RESPIRATIONS EVEN AND UNLABORED. SR TO ORTHOTICS PROSTHETICS TECHNICIAN AT THIS TIME, PT DENIES CHEST PAIN, CHEST WALL STABLE. LIJ TLC IN PLACE, RIJ PRINCE IN PLACE, D5 INFUSING AT 20 ML/HR. +2 EDEMA TO BUE/BLE, GOOD CAP REFILL, PULSES PALPABLE. GENERALIZED WEAKNESS, ABLE TO TURN AND REPOSITION WITH ASSISTANCE, NO CONTRACTURES OR DEFORMITIES. F/C IN PLACE DRAINING TO GRAVITY, PT HAS MIDLINE ABD INCISION WITH DRESSING CDI. TWO SUNI DRAINS IN PLACE WITH SEROSANGUINEOUS DRAINAGE AND AN OSTOMY TO L SIDE OF ABDOMEN IN PLACE. WILL MONITOR PT CLOSELY.
--- NOTE | 2018-12-22 19:55 | NUR ---
DR. HORTON AT BEDSIDE AT THIS TIME. NOTIFIED ABOUT BEING UNABLE TO PLACE NGT, CARA TO NOTIFY DR. BENJAMIN.
--- NOTE | 2018-12-23 01:47 | NUR ---
PT C/O VOMTING.MEDICATED ZOFRAN 4MG IV ORDERED. WILL CONTINUE TO MONITOR.
[2018-12-23 03:14] VITALS: BP 123/81
[2018-12-23 05:29] LABS: BASOPHIL % 0.2 % (0-2); PLATELET COUNT 136 x10^3mcL (130-400)
[2018-12-23 05:33] LABS: RED CELL DISTRIBUTION WIDTH 14.7 % (11.5-14.5)
[2018-12-23 05:43] LABS: CALCIUM 8.7 mg/dL (8.5-10.1); CARBON DIOXIDE 26.7 mmol/L (21-32); PHOSPHOROUS 4.7 mg/dL (2.5-4.9); POTASSIUM SERUM 4.1 mmol/L (3.5-5.1)
[2018-12-23 05:44] LABS: CREATININE SERUM 5.1 mg/dL (0.6-1.0)
--- NOTE | 2018-12-23 07:14 | NUR ---
SPOKE WITH DR. DPUREE. NEW ORDERS RECEIEVED.
[2018-12-23 07:30] VITALS: BP 140/86
--- NOTE | 2018-12-23 07:31 | NUR ---
CARE ENDORSED TO DAY NURSE ERNA. ALL QUESTIONS ANS CONCERN WERE ADDRESSED.
--- NOTE | 2018-12-23 09:25 | NUR ---
SPOKE WITH DR. BENJAMIN RAGARDING NEW ORDERS. PLAN TO DC LASIX AND INCREASE THE D5 IVF FROM 20 TO 40 ML/HR. ALSO, CLEAR LIQUID DIET SUGGESTED, BUT PER DR. BENJAMIN WE WILL START WITH A HIGH PROTEIN DRINK SUCH ENSURE BID FOR NOW. WILL FOLLOW AND CONTINUE TO MONITOR.
--- NOTE | 2018-12-23 09:53 | NUR ---
DR. DLEEON AT BEDSIDE TO ASSESS PATEINTS. UPDATES PROVIDED AND POC DISCUSSED. NO HEMODIALYSIS ORDER AT THIS TIME, WILL EVALUATE TOMORROW. WILL CONTINUE TO MONITOR.
--- NOTE | 2018-12-23 10:21 | NUR ---
DR. ROY, RESIDENTS, GLASS DRILLER AND PRIMARY RN AT BEDSIDE FOR MORNING ROUNDS. PLAN OF CARE DISCUSSED WITH ALL IN AGREEMENT. WILL CONT TO MONITOR.
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
--- NOTE | 2018-12-23 12:30 | NUR ---
DR. BENJAMIN AT BEDSIDE, UPDATED ON PT STATUS.
--- NOTE | 2018-12-23 13:00 | NUR ---
DR. ROACH AT BEDSIDE TO SEE AND ASSESS PT. PT CLEARED TO TRANSFER TO [facility] PER DR. ROACH, WILL NOTIFY COVERING RESIDENT.
[2018-12-23 16:35] VITALS: BP 135/78
--- NOTE | 2018-12-23 16:35 | NUR ---
RECEIVED PT FROM ICU. STABLE. PT IS ON ICU AIRMATTRESS BED. RT CAME AND STARTED ROUTINE BREATHING TX. PT DENIES ANY PAIN. SCD'S TO BLE. SURGICAL INCISION TO ABD WITH DRESSING,CDI. SUNI DRAIN X2 TO RLQ AND COLOSTOMY TO LLQ. ICU NURSE SAID SHE JUST EMPTIED AND CHANGED COLOSTOMY BAG BEFORE SHE BROUGHT THE PT UP IN THE ROOM, NOTHING SEEN IN THE COLOSTOMY BAG NOW. VITAL SIGNS CHECKED, STABLE AND WILL RECORD. PT'S SISTER AT BEDSIDE. IVF D5NS IS INFUSING 75ML/HR. SAFTEY PRECAUTIONS ARE IN PLACE. WILL MONITOR.
--- NOTE | 2018-12-23 19:20 | NUR ---
PT RESTING IN BED COMFORTABLY. DENIES ANY PAIN. STABLE. GAVE REPORT TO DRAFTER AUTOMOTIVE DESIGN LAYOUT NURSE.
[2018-12-23 21:40] VITALS: BP 128/75
--- NOTE | 2018-12-23 22:00 | NUR ---
Awake and verbaly responsive. No respiratory distress noted on 4L oxymizer. Denies pain at this time. Appears comfortable. Frequent request for ice chips. Tolerating well. No n/v noted. Abd'l.incision with dressing intact. SUNI x2 RLQ with serosanguineous output. LLQ Colostomy intact with no stool noted at this time. Ornelas catheter care rendered. Silvia urine noted. Bedtime care rendered. Linen changed. Turned and repositioned for comfort. Heels floated. Call light within reach. Will cont.to monitor.
--- NOTE | 2018-12-24 04:26 | NUR ---
Turned and repositioned Q2h. Kept pressure off back and bony prominences. Heels floated. SUNI x2 with 20ml serosanguineous output. Colostomy bag empty at this time. NPO except meds status. No n/v. In no apparent distress.
[2018-12-24 06:15] VITALS: BP 132/70
[2018-12-24 06:31] LABS: PLATELET COUNT 157 x10^3mcL (130-400); RED CELL DISTRIBUTION WIDTH 14.5 % (11.5-14.5)
[2018-12-24 07:07] LABS: CALCIUM 8.5 mg/dL (8.5-10.1); CARBON DIOXIDE 27.3 mmol/L (21-32); PHOSPHOROUS 5.5 mg/dL (2.5-4.9); POTASSIUM SERUM 3.9 mmol/L (3.5-5.1)
[2018-12-24 07:09] LABS: CREATININE SERUM 5.2 mg/dL (0.6-1.0)
--- NOTE | 2018-12-24 07:58 | NUR ---
PT AA/OX4. NO S/S OF ACUTE DISTRESS. PT COMPLAINT OF GENERALIZED BODY ACHES, RATES 10/10, CONTINUOUS, ACHING, WORSE WITH MOVEMENT. GIVEN IV PAIN MED TO LIJ. PATENT AND FLUSHES WELL. NO REDNESS, NO SWELLING, NO INFILTRATION. NOTED. SITE WNL. DRESSING CDI. DENIES SOB ON 4L OXYMIZER, 02 SAT SPOT CHECKED, 93%, OXYGEN INCREASED TO 5L OXYMIZER, O2 SAT INCREASED TO 95%. RR EVEN/SHALLOW/UNLABORED. DENIES CHEST PAIN. NO S/S OF ACUTE DISTRESS. MENON IN TACT DRAINING CLEAR/YELLOW URINE. COLOSTOMY IN TACT TO LLQ ABDOMEN. DRESSING TO MID ABDOMEN CDI. SUNI DRAIN TO RLQ ABD CDI. PRINCE CATH TO RIJ WNL, COVERED BY DRESSING. BED IN LOW POSITION. HOB ELEVATED >30 DEGREES. CALL LIGHT WITHIN REACH. VISITOR AND RT AT BEDSIDE. KUB COMPLETED. INSTRUCTED TO USE CALL LIGHT TO CALL FOR ASSISTANCE PRN. VERBALIZED UNDERSTANDING. WILL CONTINUE TO MONITOR.
[2018-12-24 09:17] LABS: ATYPICAL LYMPH 1 %; BAND NEUTROPHIL 6 % (0-10); BASOPHIL 0 % (0-2); METAMYELOCTE 3 % (0-2); MONOCYTE 8 % (0-7); SEGMENTED NEUTROPHILS 60 % (37-75)
[2018-12-24 09:18] LABS: rbc morphology (normal/abnorm) NORMAL (NORMAL)
[2018-12-24 09:19] LABS: PLATELET MORPHOLOGY PLATELETS NORMAL
[2018-12-24 09:59] VITALS: BP 145/75
--- NOTE | 2018-12-24 12:00 | NUR ---
PT LAYING IN BED. AA/OX4. HOB IN HIGH FOWLERS AT THIS TIME. PT NAUSEOUS. DENIES PAIN AT THIS TIME. NO CHEST PAIN. IV WNL TO RAC, IV FLUIDS FLOWING. LIJ WNL, NO REDNESS, NO SWELLING, NO INFILTRATION. DRESSING CDI. COLOSTOMY IN TACT TO LLQ ABDOMEN, NO OUTPUT AT THIS TIME. ISLAND DRESSING TO RLQ ABDOMEN AT PREVIOUS SUNI DRAIN SITE WNL. SUNI DRAIN REMOVED BY DR. BENJAMIN IN AM. PT TOLERATED REMOVAL WELL. DRESSING TO ABDOMEN CHANGED BY DR. BENJAMIN IN AM, DRESSING--SCANT SEROSANGUINOUS DRAINAGE NOTED. CAL IN PLACE. DRESSING CDI. MENON IN TACT DRAINING CLEAR/YELLOW URINE. ASSISTED PT TO REPOSITION. BED IN LOW POSITION. CALL LIGHT WITHIN REACH. WILL CONTINUE TO MONITOR.
[2018-12-24 13:07] VITALS: BP 152/89
--- NOTE | 2018-12-24 14:00 | NUR ---
Follow-up Nutrition Assessment: 212 T/B LIZABETH SHEN HR FU Dx: Perforated bowel PMHx: DM, COPD with LUC, breast cancer in remission Labs: (12/24) BG 152H, BUN 72H, CREAT 5.2H, P 5.5H, WBC 15.6H Meds: D50%, humulin, lantus, Lasix, Lipitor, miralax, morphine, Pepcid, Zofran, heparin Diet: NPO (Ileus) PO Intake: NPO since admission Weights in kg: (12/17) 147.4, (12/19) 155, (12/20) 157.5, (12/21) 161.4, (12/22) 158.7 Skin: SUNI drain to RLQ, Abd incision, scattered ecchymosis BUE Harvey: 13 I/Os: (12/24) 2650/ 2865 (-215) Edema: +2 pitting edema x4 extremities GI: colostomy at LLQ Last BM: 12/23 RDN Visit (12/24): Patient was feeling nauseous. Per RN Fiorella, pt gets nauseous everytime she tried to feed water. KUB (12/24) shows mild ileus. Spoke with Dr. Mccray, she said that surgeon recommended NPO. I asked if TPN was to be initiated, Dr. Mccray will ask the surgeon and get back to me. Per progress note (12/24), Patient POD#6, Sigmoid resection with colostomy for sigmoid diverticulitis. Patient extubated on (12/22/18) evening. Patient Underwent Dialysis on 12/21/18. Discussed patient in bed huddles and mentioned that yesterday tube feeding order was placed. Dr. Guaman said that tube feeding was not started on the patient. I suggested MANUFACTURING TECH eval to understand if patient is safe for PO vs tube feeding. Estimated Nutritional Needs Based on adjusted body weight 79 kg Energy: 8185-5278 vs 2350 kcal/d (20-25 kcal/kg vs The [place] [employer] Equation (PSU) 2003b) Protein: 79-95 g/d (1.0-1.2 g/kg) - preserve LBM Fluid: per doctor Nutrition Diagnosis 1. Inadequate oral intake related to medical condition as evidenced by NPO day 6. (ongoing) Intervention 1. Recommend MANUFACTURING TECH eval post extubation to determine diet consistency. 2. Recommend starting TPN D 25%, AA 5%. Rate to be determined by physician as patient is edematous, on Lasix and has received HD on 12/21. Monitor/Evaluate Goal: Have pt meet at least 75% of estimated needs Monitor: PO/TPN intake, Labs, GI function F/U in 2-3 days as high risk 12/26-
--- NOTE | 2018-12-24 14:01 | NUR ---
1. Recommend TAX MAP TECHNICIAN eval post extubation to determine diet consistency. 2. Recommend starting TPN D 25%, AA 5%. Rate to be determined by physician as patient is edematous, on Lasix and has received HD on 12/21.
--- NOTE | 2018-12-24 14:15 | NUR ---
PT REPORTS INTERMITTENT NAUSEA, GIVEN IV MEDICATION FOR NAUSEA, SEE EMAR. SCANT BLOODY DRAINAGE NOTED FROM COLOSTOMY, NO BM AT THIS TIME. DR. JOY AWARE OF BLOODY DRAINAGE. NO FURTHER ORDERS AT THIS TIME. NO COMPLAINT OF PAIN. PATIENT ON HIGH FLOW OXYGEN 40LPM. NO S/S OF ACUTE RESPIRATORY DISTRESS. IV WNL TO RAC, LIJ CENTRAL LINE WNL, IV FLUIDS FLOWING. HOB ELEVATED, BED IN LOW POSITION. CALL LIGHT WITHIN REACH. WILL CONTINUE TO MONITOR.
--- NOTE | 2018-12-24 14:20 | NUR ---
P.T. NOTES AFTER MULTIPLE ATTEMPTS PATIENT REFUSED TO BE SEEN BY P.T., STATES FEELING NAUSEAS AND TIRED.
--- NOTE | 2018-12-24 15:22 | NUR ---
PHYSICAL THERAPY DAILY NOTES CO-SIGN All documentation done by the Brake Coupler Dinkey for 12/24/18 has been reviewed. I agree with the documentation. Reviewed/Co-Signed by: Rabia Navarro PT Documentation Done by:ROSEANNE SHAFFER PTA
[2018-12-24 16:40] VITALS: BP 140/85
--- NOTE | 2018-12-24 18:46 | NUR ---
PT LAYING IN BED RESTING WITH BOTH EYES CLOSED. NO S/S OF ACUTE DISTRESS. NO S/S OF PAIN. MENON OUTPUT 1250, URINE YELLOW/CLEAR. MENON IN TACT. COLOSTOMY OUTPUT 20CC BLOOD DRAINAGE. PHYSICIAN AWARE OF BLOOD DRAINAGE. COLOSTOMY CDI. DRESSING TO RIGHT ABD AND MID ABD. CDI. LIJ PATENT X3 WITH BLOOD RETURN. RIGHT PRINCE CATH IN TACT, DRESSING CLEAN/DRY. IV WNL TO RAC, NO REDNESS, NO SWELLING, NO INFILTRATION. HOB ELEVATED. HIGH FLOW OXYGEN RUNNING AT 40LPM. BED IN LOW POSITION. CALL LIGHT WITHIN REACH. BLE/BUE ELEVATED. SIDE RAILS UP X2. WILL ENDORSE TO ONCOMING SHIFT.
--- NOTE | 2018-12-24 20:00 | NUR ---
RECIEVED PT FROM [facility]ART. PT IS A/O X4 . PT IS ON TELE #3 SR HR 85. PT HAS PALPABLE PULSES, EDEMA NOTED ON BUE,BLE. PT LUNG SOUNDS ARE DIMINISHED BILATERALLY. PT IS ON HIGH FLOW 40L, O2 SAT 98%. PT BOWEL SOUNDS ARE HYPOACTIVE. PT ABD IS DISTENDED AND SOFT. PT HAS COLOSTOMY TO LLQ CDI, PT HAS GENERAL WEAKNESS, HOB > 30, REPOSTIONED TO RIGT SIDE. PT HAS INCISISON TO ABD CDI. PT IV TO THE RAC INFUSING WELL, PT HAS LIJ CENTRAL LINE INFUSIGN WELL. PT HAS RIJ QUITON CATH FOR HD CDI. PT CALL LIGHT WITHIN REACH, WILL CONTINUE TO MONITOR.
[2018-12-24 20:11] VITALS: BP 163/93
--- NOTE | 2018-12-25 | NUR ---
AT BEDSIDE, UPDATES GIVEN, NEW ORDERS RECIEVD. PT C/O OF N/V AT TIMES UNABLE TO PLACE ON BIPAP. PT IV TO RAC DC'D DUE TO PT C/O OF HURTING, LEAKING NOTICED. IV CATH INTACT.
--- NOTE | 2018-12-25 00:30 | NUR ---
PT IN BED ASLEEP. PT ON HIGH FLOW 40L. NO RESP DISTRESS NOTED. WILL CONTINUE TO MONITOR, CALL LIGHT WITHIN REACH.
[2018-12-25 02:56] LABS: UA SPECIFIC GRAVITY 1.015 (1.005-1.035); microscopic required? YES; urine erythrocyte 2+ (NEGATIVE)
[2018-12-25 05:32] VITALS: BP 151/87
[2018-12-25 06:09] LABS: PLATELET COUNT 185 x10^3mcL (130-400)
--- NOTE | 2018-12-25 06:31 | NUR ---
PT SLEPT THROUGH LONG INTERVALS DURING THE NIGHT. PT IS ON TELE #3 SR. PT IS ON HIGH FLOW O2 40 L, O2 SAT IS 95%. PT COLOSTOMY TO LLQ WITH OUTPUT 0 ML. PT C/O OD N/V, GAVE ZOFRAN X1. PT HOB ELEVATED >30, REPOSITONED Q2H. PT HAS 2 ABD INCISIONS COVERED WITH DRESSING, CDI. PT HAS MENON CATH WITH CLEAR AND YELLOW URINE. PT IV TO RAC DC'D DUE TO LEAKING. PT HAS LIJ CENTRAL LINE INFUSING WELL. PT HAS RIJ PRINCE CATH CDI FOR HD. LAST HD WAS 12/21. PT WAS COOPERATIVE WITH NURSIGN CARE, NO ACUTE CHANGES NOTED.
[2018-12-25 06:33] LABS: CALCIUM 9.1 mg/dL (8.5-10.1); CARBON DIOXIDE 26.9 mmol/L (21-32); MAGNESIUM 2.1 mg/dL (1.8-2.4); POTASSIUM SERUM 3.7 mmol/L (3.5-5.1)
--- NOTE | 2018-12-25 07:15 | NUR ---
REPORT TAKEN FROM SEASONAL RECRUITER NURSE AT THE BEDSIDE. PT AWAKE AND ALERT AT THIS TIME. CURRENTLY ON 40L HIGH FLOW O2, DEXTROSE 5% RUNNING TO LEFT IJ AT 75ML PER HOUR. MENON AND COLOSTOMY INTACT AT THIS TIME. SCD'S IN PLACE WELL. PT REPORTS NO PAIN AT THIS TIME, AND ASKED WHEN SHE WILL BE GOING HOME. PT ADVISED THAT THE DOCTOR WILL INFORM HER OF DC PROCESS. WILL CONTINUE TO MONITOR.
[2018-12-25 08:41] LABS: RED CELL DISTRIBUTION WIDTH 14.8 % (11.5-14.5)
[2018-12-25 09:16] VITALS: BP 143/90
--- NOTE | 2018-12-25 10:52 | NUR ---
PT GOING DOWN TO CT SCAN IN BED AT THIS TIME, IV HEPLOCKED, AND SITES PROTECTED. PT IN NAD AT THIS TIME.
--- NOTE | 2018-12-25 10:54 | NUR ---
ABD DRESSING PACKING CHANGED BY PROVIDER AT THE BEDSIDE, SITES CONVED WITH ABD PAD, AND TAPE. ALSO MENON DC'D BY PROVIDER. PT TOLERATED WELL.
--- NOTE | 2018-12-25 11:44 | NUR ---
PT BACK FROM CT, WHICH SHE TOLERATED WELL. IN NAD AT THIS TIME, STARTED BACK ON D5W AT 50MLS PER HOUR, WILL CONTINUE TO MONITOR.
[2018-12-25 11:59] VITALS: BP 154/92
[2018-12-25 13:48] LABS: BAND NEUTROPHIL 14 % (0-10); MONOCYTE 9 % (0-7); SEGMENTED NEUTROPHILS 61 % (37-75)
[2018-12-25 13:49] LABS: PLATELET MORPHOLOGY PLATELETS NORMAL; rbc morphology (normal/abnorm) NORMAL (NORMAL)
[2018-12-25 16:56] VITALS: BP 148/95
--- NOTE | 2018-12-25 18:49 | NUR ---
PT TOLERATED TREATMENT WELL DURING THE SHIFT, PT IN NAD AT THIS TIME WILL REPORT TO LAUNDRY ASSISTANT NURSE AND ENDORSE CARE.
--- NOTE | 2018-12-25 19:21 | NUR ---
REPORT GIVEN TO DRIVERS LICENSE EXAMINER NURSE CARE ENDORSED
--- NOTE | 2018-12-25 19:37 | NUR ---
HAND OFF REPORT GIVEN BY MARTINA TOBIAS. PT IS A/O X4. PT IS ON TELE #3 SR HR 92. PT DENIES ANY CHEST PAIN OR SOB AT THIS TIME. PT LUNG SOUNDS DIMINISHED BILATERLLY, BREATHING IS EVEN AND UNLABORED. PT IS ON NC O2 3L. PT HAS WEAK PULSES, EDEMA NOTED ON THE BUE/BLE. PT HAS ACTIVE BOWEL SOUNDS , COLOSTOMY TO LLQ CDI, NO OUTPUT NOTED. PT HAD FLOEY CATH DC'C 12/25. PT VOIDIDNG REGULARLY. PT HAS GENERAL WEAKNESS, HOB PLACE >30, PT REPOSITIONED. PT HAS ADB INCISION WITH ABD DRESSING IN PLACE CDI. PT DENIES ANY PAIN AT THIS TIME. PT C/O OF NAUSEA GAVE ZOFRAN X1 PER MD ORDER. PT HAS LIJ CENTERAL LINE INFUSING WELL, RIJ PRINCE CATH CDI. LAST HD WAS 12/21. WILL CONTINUE TO MONITOR, CALL LIGHT WITHIN REACH.
--- NOTE | 2018-12-25 19:55 | NUR ---
DR. MATT MADE AWARE NO ORDER FOR PRN D10 IV FOR TPN INTERRUPTION PROTOCOL. PER DR. MATT, HE WILL BE UP SHORTLY TO ORDER. WILL ANTICIPATE
[2018-12-25 20:30] VITALS: BP 139/92
--- NOTE | 2018-12-25 21:30 | NUR ---
TPN STARTED ORDERED. INFUSING VIA LIJ CENTRAL LINE, WHITE PORT. PATENT AND INTACT, INFUSING WELL AT 50 ML/HR.
--- NOTE | 2018-12-26 00:13 | NUR ---
PT RECEIVED MIDNIGHT MEDS. PT IS BREATHING IS EVEN AND UNLABORE. PT COLOSTOMY HAD 300 ML OUTPUT GRRENISH/BLACK. PT DENIES ANY PAIN AT THIS TIME. WILL CONTINUE TO MONITOR. CALL LIGHT WITHIN REACH. PT ON NC 02 3L. NO RESP DISTRESS NOTED.
[2018-12-26 05:23] VITALS: BP 145/94
[2018-12-26 06:15] LABS: PLATELET COUNT 227 x10^3mcL (130-400); RED CELL DISTRIBUTION WIDTH 14.3 % (11.5-14.5)
--- NOTE | 2018-12-26 06:22 | NUR ---
PT SLEPT THROUGH LONG INTERVALS DURING THE NIGHT. PT IS ON TELE #3 SR. PT IS ON NC O2 2 L, O2 SAT IS 97%. PT COLOSTOMY TO LLQ WITH OUTPUT 400 ML. PT C/O OF N/V, GAVE ZOFRAN X1. PT HOB ELEVATED >30, REPOSITONED Q2H. PT HAS 2 ABD INCISIONS COVERED WITH ABD DRESSING, CDI. PT HAD MENON CATH DC 11/25. PT INCONTIENT.PT HAS LIJ CENTRAL LINE INFUSING WELL. PT HAS RIJ PRINCE CATH CDI FOR HD. LAST HD WAS 12/21. PT BEGAN TPN 12/25 INFUSING AT 50 ML/HR. PT WAS COOPERATIVE WITH NURSINN CARE, NO ACUTE CHANGES NOTED.
--- NOTE | 2018-12-26 07:12 | NUR ---
RECEIVED PATIENT RESTING COMFORTABLY IN BED. CENTRAL LINE TO LIJ IS PATENT AND INFUSING TPN AT 50 ML/HR. NO REDNESS OR PAIN. TELE # [address] PT DENIES CHEST PAIN. PT ON O2 3L NC. NO C/O SOB AND NO DISTRESS NOTED. ALL QUESTIONS AND CONCERNS ADDRESSED.
[2018-12-26 07:20] LABS: CARBON DIOXIDE 28.7 mmol/L (21-32); PHOSPHOROUS 5.6 mg/dL (2.5-4.9); POTASSIUM SERUM 3.8 mmol/L (3.5-5.1)
[2018-12-26 07:26] LABS: CREATININE SERUM 4.4 mg/dL (0.6-1.0)
[2018-12-26 07:44] VITALS: BP 156/93
[2018-12-26 11:27] LABS: BAND NEUTROPHIL 3 % (0-10); BASOPHIL 0 % (0-2); MONOCYTE 4 % (0-7); PLATELET MORPHOLOGY PLATELETS DECREASED; SEGMENTED NEUTROPHILS 82 % (37-75); rbc morphology (normal/abnorm) NORMAL (NORMAL)
--- NOTE | 2018-12-26 11:41 | NUR ---
RECEIVED CALL FROM PHARMACY INQUIRING ABOUT CONTINUATION OF TPN. JESSI MARX CALLED. SHE WILL CONSULT WITH DR BENJAMIN AND GET BACK TO ME.
--- NOTE | 2018-12-26 12:09 | NUR ---
SPOKE WITH JESSI MARX. PT TO CONTINUE TPN, NOTIFIED OF PT BP 177/88. ORDERS TO BE PLACED. RESTAURANT MANAGING PARTNER ALSO SPOKE WITH DR BENJAMIN ABOUT RADILOLGY CONSULTING ABOUT IMAGING AND DISTENDED ABDOMEN.
--- NOTE | 2018-12-26 12:14 | NUR ---
Follow-up Nutrition Assessment: 212 T/B LIZABETH SHEN HR FU Dx: Perforated bowel PMHx: DM, COPD with LUC, breast cancer in remission Labs: (12/26) BG 213H, BUN 75H, CREAT 5.2H, P 4.4H, WBC 17.3H, P 5.6H Meds: D50%, D 10%, humulin, lantus, Lasix, Lipitor, miralax, morphine, Pepcid, Zofran, heparin Diet: Full liquid +TPN D25%, AA 5%, Rate 50 ml/hr PO Intake: NPO (FLD from lunch today) Weights in kg: (12/17) 147.4, (12/19) 155, (12/20) 157.5, (12/21) 161.4, (12/22) 158.7, (12/26) Skin: Abd incision Harvey: 13 I/Os: (12/26) 1730/ 1600 (130) Edema: BUE, BLE GI: colostomy at Q Last BM: 12/25 RDN Visit (12/26): Patient was alert and oriented and a friend was trying to feed her milk and some orange juice. Patient says her appetite is good and she does not have any N/V at this time. Diabetic diet education handout was given to the patient. Detail explanation was not appropriate at this time and will be given during a f/u visit. Per progress note (12/26), Patient POD#8, Sigmoid resection with colostomy for sigmoid diverticulitis. Patient extubated on (12/22/18) evening. Discussed recommendations with ENTRY LEVEL PAR[place]. Estimated Nutritional Needs Based on adjusted body weight 79 kg Energy: 1923-4918 vs 2350 kcal/d (20-25 kcal/kg vs The [place] [employer] Equation (PSU) 2003b) Protein: 79-95 g/d (1.0-1.2 g/kg) - preserve LBM Fluid: per doctor Nutrition Diagnosis 1. Inadequate oral intake related to medical condition as evidenced by NPO day 8. (improving, patient started on TPN, PO.) Intervention 1. Recommend CCHO (Full liquid diet). 2. Recommend discontinuing TPN once PO >75% Monitor/Evaluate Goal: Have pt meet at least 75% of estimated needs Monitor: PO/TPN intake, Labs, GI function F/U in 2-3 days as high risk 12/28-
--- NOTE | 2018-12-26 12:14 | NUR ---
1. Recommend CCHO (Full liquid diet). 2. Recommend discontinuing TPN once PO >75%
[2018-12-26 12:35] VITALS: BP 177/88
--- NOTE | 2018-12-26 13:28 | NUR ---
SPOKE WITH RADIOLOGY FOR READING OF CT ABDOMEN TO ASSESS CAUSE OF DISTENTION PER DR BENJAMIN REQUEST. RADIOLOGY STATED THAT SCAN HAS ALREADY BEEN READ AND THE RESULTS CAN BE SENT TON DR BENJAMIN. INSTRUCTED TO CALL THEM DIERCTLY IF HE HAS ANY FURTHER QUESTIONS.
[2018-12-26 16:26] VITALS: BP 140/69
[2018-12-26 17:41] VITALS: BP 140/69
--- NOTE | 2018-12-26 19:27 | NUR ---
REPORT GIVEN TO NIMCO MACK. PATIENT RESTING COMFORTABLY IN BED WITH SISTER AT BEDSIDE. ALL NEEDS MET. ALL QUESTIONS AN CONCERNS ADDRESSED. ALL CARES ENDORSED.
--- NOTE | 2018-12-26 19:30 | NUR ---
RECEIVED PT LAYING IN BED WITH SISTER AT BEDSIDE. MILD DISTRESS DISTRESS NOTED, PT IS CONSTANTLY BURPING AND PASSING GAS, C/O OF NAUSEA AND VOMITING INTO EMESIS BAG, YELLOW OUTPUT. ABD DISTENDED AND FIRM, COLOSTOMY NOTED TO LLQ WITH DARK BROWN WATERY OUTPUT NOTED, STOMA PINK AND WNL. MIDLINE ABD INCISION IN PLACE, S/P EX LAP AND SIGMOID RESECTION ON 12/18/18, DRESSING CHANGE DONE EARLIER TODAY, CDI. AA/OX4, ABLE TO MAKE NEEDS KNOWN, SPEECH CLEAR AND APPROPRIATE. NSR TO TELE #3, HR 94, DENIES CP OR PRESSURE. WEAK PEDAL PULSES, +1 EDEMA TO BLE AND BUE, PT ON HEPARIN SQ THERAPY. BREATHING ON 3L NC, EVEN AND UNLABORED, DENIES SOB OR DYSPNEA, O2 SAT 97% LUNGS DIM B/L, RT PROTOCOL IN PLACE. INCONTINENT OF URINE, WILL PROVIDE PERICARE NEEDED AND MONITOR URINE OUTPUT. PRINCE CATH TO RIJ IN PLACE, DRESSING CDI. LAST HD 12/21/18 WITH 2L OUT. GENERALIZED WEAKNESS, PT IS UP WITH P.T. MAX ASSIST, ISOGEL MATTRESS IN PLACE, PT ABLE TO HELP WITH TURNING AND REPOSITIONING, HOB ELEVATED. PT ON FULL LIQUID DIET, NOT TOLERATING WELL DUE TO N/V. TPN INFUSING AT 50 ML/HR ORDERED VIA LIJ CENTRAL LINE, PATENT AND INTACT, DRESSING CDI, ALL PORTS FLUSHED WELL WITH NS. COMFORT AND SAFETY MEASURES IN PLACE. ALL NEEDS ASSESSED AND ATTENDED TO. BED IN LOWEST POSITION WITH SIDE RAILS UP AND BED ALARM ACTIVATED. CALL LIGHT WITHIN REACH. WILL CONTINUE TO MONITOR
--- NOTE | 2018-12-26 20:04 | NUR ---
PT C/O NAUSEA AND MILD VOMITING INTO EMESIS BAG, YELLOW OUTPUT. MEDICATED WITH PRN ZOFRAN PER EMAR. EMESIS BAG WITHIN REACH. SISTER AT BEDSIDE. CALL LIGHT WITHIN REACH. WILL CONTINUE TO MONITOR
[2018-12-26 20:37] VITALS: BP 140/84
--- NOTE | 2018-12-26 21:00 | NUR ---
NEW TPN BAG STARTED ORDERED, INFUSING AT 50 ML/HR VIA [facility] CENTRAL LINE. INFUSING WELL.
--- NOTE | 2018-12-27 00:20 | NUR ---
DR. PLATA IN TO SEE PT. MADE AWARE OF INITIAL REPEAT BLOOD CULTURE FROM [place] CAME BACK WITH GRAM (+) COCCI IN CLUSTERS. PER DR. PLATA, TO ADD VANCO PER PHARMACY. WILL ANTICIPATE ORDERS
[2018-12-27 05:40] VITALS: BP 150/85
--- NOTE | 2018-12-27 06:03 | NUR ---
NO SIGNIFICANT CHANGES TO REPORT, PT COMPLIED WITH NURSING CARE THROUGHOUT THE SHIFT WITH NO ACUTE EVENTS OVERNIGHT. 250 ML DARK GROWN WATERY OUTPUT WITH FOOD PARTICLES NOTED TO COLOSTOMY BAG. PT LAYING IN BED AT THIS TIME, BREATHING EVEN AND UNLABORED, NO ACUTE DISTRESS OBSERVED, AROUSABLE TO VERBAL STIMULI. COMFORT AND SAFETY MEASURES MAINTAINED. ALL NEEDS ASSESSED AND ATTENDED TO. CALL LIGHT WITHIN REACH. WILL CONTINUE TO MONITOR AND ENDORSE CARE TO DAY SHIFT NURSE
--- NOTE | 2018-12-27 06:49 | NUR ---
SPOKE WITH DR. DUPREE, GIVEN UPDATE ON PT THROUGH THE NIGHT. MADE AWARE THAT PT REMAINS VERY GASSY, EXCESSIVE BURPING, NAUSEA, SPITTING UP SALIVA, AND VOMITING. PER DR. BENJAMIN, NEW ORDERS FOR STAT KUB, AND NPO.
[2018-12-27 07:14] LABS: PLATELET COUNT 266 x10^3mcL (130-400); RED CELL DISTRIBUTION WIDTH 14.2 % (11.5-14.5)
--- NOTE | 2018-12-27 07:17 | NUR ---
RECEIVED REPORT FROM NIMCO MACK. PATIENT RESTING COMFORTABLY IN BED ALL NEEDS MET. PRINCE CATH TO RIJ DRESSING INTACT. CENTRAL LINE TO [facility] IS PATENT AND INFUSING TPN @ 50 ML/HR. NO REDNESS OR PAIN. ABDOMINAL INCISION IS COVERED WITH ABD PADS CDI AND COLOSTOMY IS IN PLACE DRAINING DARK BROWN FLUID. ALL QUESTIONS AND CONCERNS ADDRESSED.
[2018-12-27 07:21] LABS: CALCIUM 9.3 mg/dL (8.5-10.1); CARBON DIOXIDE 27.3 mmol/L (21-32); CREATININE SERUM 3.4 mg/dL (0.6-1.0); POTASSIUM SERUM 3.7 mmol/L (3.5-5.1)
[2018-12-27 08:01] LABS: MAGNESIUM 1.8 mg/dL (1.8-2.4); PHOSPHOROUS 5.2 mg/dL (2.5-4.9)
[2018-12-27 08:33] VITALS: BP 158/86
--- NOTE | 2018-12-27 09:48 | NUR ---
IN TO CHANGE PATIENTS COLOSTOMY DUE TO LEAK. COLOSTOMY LEAKED ALL OVER DRESSING AND IT NEEDED TO BE CHANGED WELL. DR WEBB ALSO CAME IN TO SEE AND ASSESS PATIENT.
[2018-12-27 10:08] LABS: BAND NEUTROPHIL 13 % (0-10); BASOPHIL 0 % (0-2)
[2018-12-27 10:09] LABS: PLATELET MORPHOLOGY PLATELETS NORMAL
[2018-12-27 10:11] LABS: MONOCYTE 10 % (0-7); SEGMENTED NEUTROPHILS 62 % (37-75)
[2018-12-27 10:13] LABS: rbc morphology (normal/abnorm) ABNORMAL (NORMAL)
[2018-12-27 12:15] VITALS: BP 154/78
--- NOTE | 2018-12-27 15:06 | NUR ---
IN TO SEE PATIENT AND ASSESS NEEDS AFTER LUNCH. PT RESTING COMFORTABLY IN BED WITH SISTER AT BEDSIDE. ALL NEEDS MET.
--- NOTE | 2018-12-27 15:35 | NUR ---
RADIOLOGY IN TO SEE PATIENT FOR SMALL BOWEL FOLLOW THROUGH.
[2018-12-27 16:20] VITALS: BP 139/70
--- NOTE | 2018-12-27 16:34 | NUR ---
SMALL BOWEL FOLLOW THROUGH PART TWO TAKING PLACE NOW.
--- NOTE | 2018-12-27 17:00 | NUR ---
SMALL BOWEL FOLLOW THROUGH PART 3. DR BENJAMIN ALSO IN TO SEE PATIENT TO REMOVE AND REPLACE IODOFORM PACKING. TYPE USED 1/2 INCH BY 5 YARDS. AND COVERED WITH TWO ABDS AND FOAM TAPE APPLIED. 4X4 APPLIED TO SMALL LOWER RIGHT INCISION AND FOAM TAPE APPLIED. PATIENT TOLERATED IT WELL.
--- NOTE | 2018-12-27 19:43 | NUR ---
REPORT GIVEN TO DEBBIE MACK. PATIENT RESTING COMFORTABLY IN BED WITH FAMILY AT BEDSIDE. ALL NEEDS MET. ALL QUESTIONS AND CONCERNS ADDRESSED. ENDORSED TO KAPIL THAT DR BENJAMIN WAS CALLED FOR FOURTH SMALL BOWEL FOLLOW THROUGH ORDER RADIOLOGIST WAS UNABLE TO BE REACHED FOR READING AND ORDERING OF FOURTH IMAGE. AWAITING CALL RETURN.
--- NOTE | 2018-12-27 19:45 | NUR ---
PRODUCTION OPERATOR AT BEDSIDE. STATED SHE WAS UNABLE TO COMMUNICATE WITH THE MONUMENT INSTALLER RADIOLOGIST TO GET THE LAST XRAYS READ. SO SHE COMMUNICATED WITH [employer] AND THEY RECOMMENDED A 4TH HR AND A 6TH HR SMALL BOWEL FOLLOW THROUGH. 100CC OF CONTRAST WILL BE GIVEN ORALLY AND A XRAY WILL BE TAKEN, FOLLOWED BY A 6TH HR COMPLETED AT 0925 12/28/18. SO PT HAS RECIEVED AT TOTAL OF 300CC OF CONTRAST TODAY, STARTING FROM 0300 TO NOW. ALL INFORMATION WAS COMMUNICATED WITH PT AND CHARGE NURSE. WILL CONTINUE TO [facility].
--- NOTE | 2018-12-27 20:00 | NUR ---
PT IS A/O x4. ON TELE #3, NSR. DENIES ANY CHEST PAIN OR PRESSURE. WEKA PEDIAL PULSES. BLE EDEMA NOTED. LUNGS DIMINISHED ON BLL. ON 3L NC. DENIES ANY SOB. EQUAL CHEST RISE AND FALL. NO SIGN OF RESP DISTRESS. BOWEL SOUNDS PRESENT x4. LLQ COLOSTOMY BAG IS CLEAN AND INTACT. WATERY, DARK BROWN OUTPUT NOTED. PT IS BURPING A LOT. ABD IS MILDY FIRM AND OBESED. DRESSING ON MIDLINE ABD IS CLEAN AND INTACT. INCONITENT WITH URINE. DENIES PAIN AT THIS TIME. CENTRAL LINE ON LIJ INTACT. RED AND WHITE PORT FUNCTIONING. BLUE PORT UNABLE TO FLUSH. QUITON CATH ON RIJ, INTACT. ON A GEL MATTRESS. BED IS AT LOWEST SETTING. CALL LIGHT WITHIN REACH. WILL CONTINUE TO MONTIOR.
[2018-12-27 20:56] VITALS: BP 134/73
--- NOTE | 2018-12-27 22:00 | NUR ---
PT GOES IN AND OUT OF SADNESS. THERAPUTIC COMMUNICATION PROVIDED. EMPITIED COLOSTOMY BAG. MADE PT COMFORTABLE IN BED. PT REFUSED BREATHING TREATMENT AND BI PAP FOR THE NIGHT. EDUCATION PROVIDED. WILL CONTINUE TO MONITOR.
--- NOTE | 2018-12-28 00:45 | NUR ---
PT IS RESTING IN BED. REFUSED BREATHING TREATMENT, REFUSED INSULIN WTH BG AT 180, AND REFUSED PO MED. WHEN ASKED WHY PT DID NOT WANT TREATMENT, PT CLOSED HER EYES AND REFUSED TO ANSWER. PT AGITATED WHEN ATTEMPTED TO EDUCATE. CHARGE NURSE MADE AWARE. WILL CONTINUE TO MONITOR.
[2018-12-28 05:05] VITALS: BP 124/67
--- NOTE | 2018-12-28 06:55 | NUR ---
PT IS RESTING IN BED. KUB WAS COMPLETED THIS AM. PT TOLERATED WELL. NEW LINEN WAS PROVIDED AND PT WAS WIPED DOWN. COLOSTOMY BAG IS INTACT. DRESSING ON LIJ, CENTRAL LINE NEEDS TO BE CHANGED. PT REFUSED TO CHANGED AT THIS TIME. NO OTHER COMPLAINTS. MD KNUTSON WAS MADE AWARE OF PT REFUSAL TO SOME CARE AND WAS UPDATED ON THE FOLLOW THROUGH ORDER AND THE EXTRA 100CC OF ORAL CONTRAST GIVEN. NO ORDERS RECIEVED. BED IS AT LOWEST SETTING. CALL LIGHT WITHIN REACH. WILL ENDORSE ALL CARE TO AM NURSE.
--- NOTE | 2018-12-28 07:30 | NUR ---
RECEIVED PT FROM HUMAN PROJECTILE. ASSESSED AND DOCUMENTED. DENIES ANY PAIN. SAFTEY PRECAUTIONS ARE IN PLACE. WILL MONITOR.
[2018-12-28 07:53] LABS: CALCIUM 9.4 mg/dL (8.5-10.1); CARBON DIOXIDE 25.9 mmol/L (21-32); POTASSIUM SERUM 3.6 mmol/L (3.5-5.1)
[2018-12-28 08:02] LABS: CREATININE SERUM 2.6 mg/dL (0.6-1.0)
--- NOTE | 2018-12-28 09:00 | NUR ---
INFORMED PHARMACY ABOUT VANCO RANDOM 18.4. ALSO CHAUFFEUR ARASELI AWARE. PHARMACY SAID THEY WILL ORDER DOSE FOR TOMORROW. PT RESTING IN BED COMFORTABLY.
[2018-12-28 09:10] VITALS: BP 123/67
--- NOTE | 2018-12-28 10:00 | NUR ---
ASSISTED PT TO CHANGE THE ABSORB PAD. PT REQUESTED SHE WANT TO SIT IN THE CHAIR. 3 STAFF ASSISTED PT TO SIT IN THE CHAIR. AFTER 10MIN PT REQUESTED TO GO BACK IN THE BED AND ASSISTED PT BACK IN THE BED. PT IS STABLE. DENIES ANY PAIN.
--- NOTE | 2018-12-28 10:18 | NUR ---
Follow-up Nutrition Assessment: Renee Huff 212T-B Dx: Perforated bowel Labs: (12/28) BH, BUN:60H, Cr:2.6H, WBC:18.9H, H/H:10.6/31L Meds: Amitiza, D10%, Humulin, Lantus, Lasix, Lipitor, Merrem, Miralax, Morphine, Mylanta, Protonix, Pulmicort, Reglan, Senokot, Tylenol, Vancocin, Heparin, Current Diet: NPO 2/2 N/V PO intake: (12/26) L: 20% of full liquid diet Weights: (12/22) 158.7kg (12/28) 346.35#, 157kg Skin: midline abd dressing, clean and intact Edema: BLE Last BM: + colostomy bag to LLQ with watery dark output 12/27/18 Per progress note 12/27, pt is s/p sigmoid diverticulitis with septic shock, s/p sigmoid colostomy resection and sigmoid colostomy. Pt remains on TPN and tolerating [place] diet. WARD MAID spoke to surgeon and recommends GI consult for EGD and possible GI outlet. Per RN note 12/26, pt with c/o n/v and vomiting into emesis bag. During visit, pt was seen laying in bed asleep with TPN running at 80ml/hr. Spoke to MARTINA Dejesus who reports, pt continues to be NPO, however, if ok with Dr. Lynn, pt can be advanced to full liquid diet. Pt to have SBFT today. Estimated Nutritional Needs based on adjusted body weight: 79kg Energy: 1580-1975kcal/day (20-25kcal/kg for maintenance) Protein: 79-95 (1-1.2g/kg for perservation of LBM) Fluid:1580-1975ml/day (20-25ml/kg for maintenance) or per doctor Nutrition Diagnosis 1. Inadequate oral intake related to medical condition as evidenced by NPO day 8 (ongoing) 2. Inadequate oral intake related to s/p sigmoid colostomy resection and sigmoid colostomy as evidenced by current NPO status and receiving TPN. Intervention 1. Recommend continue TPN: D:25% AA:5% at 80ml/hr provides 480g CHO, 96g protein, 2016kcal and 1920ml total volume. This meets 102% caloric needs and 101% protein needs. GIR:7mcg/kg/min (elevated). Monitor BG levels due to elevated GIR. 2. Recommend advance diet as tolerated. Monitor/Evaluate Previous goal: have pt meet at least 75% of estimated needs Goal: TPN intake at least 75% of estimated needs and diet advancement Monitor: TPN intake/tolerance, Labs, GI function F/U in 2-3 days as high risk: 12/30-
--- NOTE | 2018-12-28 10:21 | NUR ---
1. Recommend continue TPN: D:25% AA:5% at 80ml/hr provides 480g CHO, 96g protein, 2016kcal and 1920ml total volume. This meets 102% caloric needs and 101% protein needs. GIR:7mcg/kg/min (elevated). Monitor BG due to pt with elevated GIR. 2. Recommend advance diet as tolerated.
[2018-12-28 10:36] LABS: PLATELET COUNT 259 x10^3mcL (130-400); RED CELL DISTRIBUTION WIDTH 13.8 % (11.5-14.5)
[2018-12-28 11:37] LABS: BAND NEUTROPHIL 12 % (0-10); BASOPHIL 0 % (0-2); MONOCYTE 8 % (0-7); SEGMENTED NEUTROPHILS 66 % (37-75)
[2018-12-28 11:38] LABS: PLATELET MORPHOLOGY PLATELETS NORMAL; rbc morphology (normal/abnorm) ABNORMAL (NORMAL)
[2018-12-28 12:49] VITALS: BP 107/62
--- NOTE | 2018-12-28 14:00 | NUR ---
COLOSTOMY BAG BUILDING UP LOT OF AIR AND STOOL. RELEASED AIR AND EMPTIED 350ML THIS TIME. PT DENIES ANY PAIN. STABLE.
--- NOTE | 2018-12-28 16:20 | NUR ---
LIJ CENTRAL LINE DRESSING CHANGED, CLEANED THE AREA PER PROTOCOLE AND APPLIED NEW DREESING, NO DRAINAGE OR REDNESS NOTED AT THE CENTRAL LINE SITE. PT'S SISTER AT BEDSIDE.
[2018-12-28 18:01] VITALS: BP 93/66
--- NOTE | 2018-12-28 18:01 | NUR ---
RECEIVED TELEPHONE CALL FROM DR. BENJAMIN AND UPDATED HIM WITH PLAN OF CARE- PLAN FOR EDG TOMORROW WITH DR. WEBB. ALL QUESTIONS AND CONCERNS ADDRESSED.
--- NOTE | 2018-12-28 19:15 | NUR ---
PT IS SLEEPING, RESTING IN BED COMFORTABLY. DENIES ANY PAIN. STABLE. GAVE REPORT TO ANDROID ARCHITECT NURSE.
--- NOTE | 2018-12-28 19:40 | NUR ---
RECEIVED REPORT FROM DAY SHIFT RN. PT RESTING WITH EYES CLOSED. RESPONDS TO VERBAL STIMULI. ORIENTED X4. NO SOB ON O2 3L VIA NC. BREATHING EVEN AND UNLABORED. PRINCE CATH TO RIJ, DRESSING C/D/I. LIJ CENTRAL LINE, TPN INFUSING AT 40 ML/HR. COLOSTOMY TO LLQ NOTED WITH BROWN WATERY OUTPUT. DRESSING TO MIDLINE ABD, C/D/I. SAFETY MEASURES IN PLACE. BED IN LOWEST POSITION. SIDE RAILS UP X2. INSTRUCTED PT TO USE THE CALL LIGHT FOR ASSISTANCE. CALL LIGHT WITHIN EASY REACH.
[2018-12-28 20:50] VITALS: BP 110/56
[2018-12-29] VITALS (7 sets, daily range): BP systolic 94–140; BP diastolic 45–67
--- NOTE | 2018-12-29 02:29 | NUR ---
PT RESTING WITH EYES CLOSED. NO SOB ON O2 3L VIA NC. BREATHING EVEN AND UNLABORED. NO DISTRESS NOTED. CALL LIGHT WITHIN REACH. WILL CONTINUE TO MONITOR.
[2018-12-29 06:28] LABS: CALCIUM 8.8 mg/dL (8.5-10.1); CREATININE SERUM 2.1 mg/dL (0.6-1.0); POTASSIUM SERUM 3.7 mmol/L (3.5-5.1)
[2018-12-29 06:52] LABS: PLATELET COUNT 364 x10^3mcL (130-400)
--- NOTE | 2018-12-29 07:33 | NUR ---
PT RESTED AT INTERVALS THROUGHOUT SHIFT. NO SOB ON O2 3L VIA NC. BREATHING EVEN AND UNLABORED. NO C/O PAIN. NO DISTRESS NOTED AT THIS TIME. RT JUGULAR PRINCE CATH AND LIJ CENTRAL LINE, INTACT. LLQ COLOSTOMY BAG INTACT. REFUSED BREATHING TREATMENT. MD AWARE. SAFETY MEASURES MAINTAINED. ALL NEEDS ATTENDED TO. CALL LIGHT WITHIN REACH. ENDORSED CONTINUITY OF CARE TO DAY SHIFT RN.
--- NOTE | 2018-12-29 07:43 | NUR ---
RECEIVED HAND FROM NIGHT NURSE. PATIENT FOUND LAYING SUPINE IN BED WITH NO COMPLAINTS OF PAIN, TELE # [address] PRINCE CATH IN PLACE ON RIGHT SIDE OF NECK AND TRIPLE LUMEN CENTRAL LINE ON LEFT SIDE OF NECK. BLUE PORT DOES NOT FLUSH. RECEIVED CRITICAL VALUE FROM LAB OF WBC 21.9. MADE SY BOWEN AWARE OF VALUE
--- NOTE | 2018-12-29 08:23 | NUR ---
ADMINISTERED MEDICATIONS PER MAR. PATIENT OFF UNIT FOR EGD. NOTIFIED TELE MONITOR.
--- NOTE | 2018-12-29 09:56 | NUR ---
NO HHNTX GIVEN DUE TO PT GETTING XRAY THEN WENT BACK AND PT NOT IN ROOM. PER ZOOLOGY TECHNICAL OFFICER, PT IS IN GI LAB. WILL MONITOR
--- NOTE | 2018-12-29 11:07 | NUR ---
PATIENT RETURNED FROM EGI ACOMPANIED BY COATER OPERATOR. 3L VIA NC, RESTARTED TPN INFUSION AT 40, REPLACED SCDS. PATIENT NOT COMPLAINING OF PAIN, REQUESTING JELLO. HELP PATIENT REPOSITION SELF IN BED. CALL EUGENE BASSETT
--- NOTE | 2018-12-29 12:36 | NUR ---
ADMINSITERED MEDICATION PER AUG. PATIENT REQUESTING TIME BEFORE ATTEMPTING IV ACCESS AGAIN. NO COMPLAINTS AT THIS TIME. RT TO SEE PATIENT. CALL LIGHT WITH IN REACH
--- NOTE | 2018-12-29 12:50 | NUR ---
RECEIVED A CALL FROM DR. BENJAMIN TO REQUEST UPDATE ON EGD RESULTS. MADE AWARE OF FINDINGS. RECEIVED T.O. TO INCREASE REGLAN TO 10MG QID. ORDER TRANSCRIBED, ATTENDING NURSE MADE AWARE.
--- NOTE | 2018-12-29 13:29 | NUR ---
PER BLANCA THOMPSON TO REMOVE JUAN CAMARILLO. WILL NOTIFY SY BOWEN.
[2018-12-29 13:48] LABS: BAND NEUTROPHIL 1 % (0-10); BASOPHIL 0 % (0-2); MONOCYTE 6 % (0-7); SEGMENTED NEUTROPHILS 86 % (37-75)
[2018-12-29 13:49] LABS: PLATELET MORPHOLOGY PLATELETS INCREASED; rbc morphology (normal/abnorm) ABNORMAL (NORMAL)
--- NOTE | 2018-12-29 13:50 | NUR ---
PATIENT ASSISTED UP TO BEDSIDE CHAIR BY 2 CNAS, ATTEMPTED IV ACCESS AGAIN, UNSUCCESSFUL. CALL LIGHT WITHIN REACH OF PATIENT
--- NOTE | 2018-12-29 14:36 | NUR ---
PATIENT ASSISTED BACK TO BED. WARM TOWELS PLACED OVER BILATER ARMS. BED IN LOWEST POSITION, CALL LIGHT WITHIN REACH
--- NOTE | 2018-12-29 16:08 | NUR ---
RESOURCE RN OBTAINED 2, 22G IV TO LEFT FOREARM IN PREP FOR CENTRAL LINE DC.
--- NOTE | 2018-12-29 16:55 | NUR ---
INFORMED SY BOWEN THAT PATIENT NOW HAS TWO IV LINES AND RECEIVED ORDER TO REMOVE CENTRAL LINE TO LEFT IJ, SINCE PATIENT IS EATING REGULAR DIET AND TOLERATING WELL OKAY TO D/C TPN TO REMOVE CENTRAL LINE WELL TAKE CULTURES OF THE TIPS. CHARGE NURSE SPOKE WITH SY BOWEN TO CLARIFY THAT MST RNS CANNOT REMOVE PRINCE CATHS. WILL ENDORSE REMOVEAL OF PRINCE CATH TO NIGHT RES.
--- NOTE | 2018-12-29 17:39 | NUR ---
ADMINISTERED MEDICATIONS PER MAR. PATIENT WAS ASSESSED BY PT EARLIER. SITTING UP AT THIS TIME AND EATING CALL LIGHT WITHIN REACH
--- NOTE | 2018-12-29 17:49 | NUR ---
DR REED NOTIFIED THAT PRINCE CATH IN RIJ NEEDS TO BE REMOVED BY A RESIDENT TONIGHT.
--- NOTE | 2018-12-29 18:52 | NUR ---
REMOVED LEFT IJ CENTRAL LINE USING STERILE TECHNIQUE, ALL SUTURES REMOVED. TIP OF CATH INTACT AND TIP SENT TO LAB FOR CULTURE. PRESSURE APPLIED TO SITE WITH GAUZE FOR 5 MINUTES. NO BLEEDING NOTED. ERYTHEMA TO SURROUNDING SKIN. GAUZE SECURED TO SITE WITH TAPE. PATIENT TOLLERATING WELL, RESTING IN BED WITH CALL LIGHT WITHIN REACH
--- NOTE | 2018-12-29 19:43 | NUR ---
RECEIVED REPORT FROM AM NURSE. PT IN BED SLEEPING. PT AAOX4, DENIES H/A OR DIZZNESS AT THIS TIME. ON TELE#3 SR, DENIES CP/PRESSURE AT THIS TIME. WEAK PEDAL PULSES TO BLE, MODERATE PULSES TO BUE. TRACE EDEMA TO ALL EXTREMETIES. LUNG SOUNDS DIMISHED TO MARY BASES. BREATHING EVEN AND UNLABORED ON 3L NC. NO SIGNS OF RESP DISTRESS NOTED. ABD SOFT AND ROUND, ACTIVE BOWEL SOUNDS X4 QUAD. DENIES N/V. COLOSTOMY TO LLQ, OSTOMY BEEFY RED IN COLOR. GREENISH LIQUID STOOL ON OSTOMY BAG NOTED. INCONTINENT TO URINE AT TIMES. GENERALIZED WEAKNESS, ABULATORY WITH MAX ASSIST. ON ISO GEL MATTRESS. MIDLINE ABD INSICION COVERED WITH DRESSING, DRESSING CDI. RIJ QUITON CATH IN PLACE, DRESSING CDI. DRESSING TO LEFT SIDE OF NECK FROM CENTRAL LINE REMOVAL, DRESSING CDI. 2 IV SL TO LFA, SITE WNL. NO ACUTE DISTRESS NOTED. BED AT LOWEST SETTING, SIDE RAILS X2 UP, CALL LIGHT WITHING REACH. WILL CONTINUE TO MONITOR.
--- NOTE | 2018-12-29 20:20 | NUR ---
FOLLOW UP MADE WITH DR. BAH REGARDING PRINCE CATHETER HAS TO BE DISCONTINUE RILEY PER AM NURSE ENDORSEMENT.WILL INFORM HER SENIOR AND WILL GET BACK WITH THIS NURSE.
--- NOTE | 2018-12-30 00:29 | NUR ---
CLARIFICATION OF ORDER MADE WITH DR. BENJAMIN REGARDING NEW IVF ORDERED.WANTED D51/2 NS@40 ML/HR.WILL CARRY OUT.
--- NOTE | 2018-12-30 01:36 | NUR ---
PT C/O 01/31 BACK PAIN DESCRIBED ACHING. ENCOURAGED REPOSITIONING, BUT PT DECIDED TO GET UP AND SIT ON CHAIR. ASSISTED PT TO CHAIR, TOLERATED WELL. MEDICATED WITH PRN TYLENOL. ASSISTED PT BACK TO BED, STATED HER PAIN GOT A LITTLE BETTER AFTER GETTING UP. WILL CONTINUE TO MONITOR.
--- NOTE | 2018-12-30 05:18 | NUR ---
PT SLEPT AT INTERVALS THROUGHOUT THE NIGHT. BREATHING EVEN AND UNLABORED ON 3L NC. NO SIGNS OF RESP DISTRESS NOTED. IV TO LFA FLUSHING WELL, SITE WNL. ALL NEEDS ASSESSED AND ATTENED TO. NO ACUTE DISTRESS NOTED. BED AT LOWEST SETTING, BED SIDE RAILS X2 UP, CALL LIGHT WITHING REACH. WILL ENDORSE CARE TO AM NURSE.
[2018-12-30 05:51] VITALS: BP 107/57
--- NOTE | 2018-12-30 06:29 | NUR ---
ASSISTED PT TO CHAIR, TOLERATED WELL. PT WANTS TO SIT ON THE CHAIR FOR AWHILE. NO ACUTE DISTRESS NOTED. WILL CONTINUE TO MONITOR.
[2018-12-30 06:51] LABS: CALCIUM 8.8 mg/dL (8.5-10.1); CARBON DIOXIDE 26.9 mmol/L (21-32); CREATININE SERUM 1.7 mg/dL (0.6-1.0); POTASSIUM SERUM 3.9 mmol/L (3.5-5.1)
--- NOTE | 2018-12-30 06:51 | NUR ---
PT AAOX4, DENIES RODRIGUEZ AND DIZZINESS. DENIES N/V AT THIS TIME. NO NEURO CHENGES NOTED. WILL ENDORSE CARE TO AM NURSE.
--- NOTE | 2018-12-30 07:34 | NUR ---
A+OX4, NO RESPRIATORY DISTRESS NOTED, SITTING IN CHAIR AT BEDSIDE, ASSISTED PT BACK TO BED, TELE 3, WEAK PEDAL PULSES, EDEMA BLE, LUNG SOUNDS DIMINISHED, 3L HUMIDIFIED O2, COLOSTOMY LLQ CDI DRAINING LIQUID STOOL, BOWEL SOUNDS ACTIVE, VOIDING, INCONTINENT AT TIMES, GENERALIZED WEAKNESS, MIDLINE ABD INCISION WITH DRESSING CDI, IV IN LFA INFUSING D5 1/2 NS @ 40 ML/HR, SITE WNL, IV IN LFA SALINE LOCKED SITE WNL, JUAN PRINCE CATH TO BE REMOVED TODAY.
--- NOTE | 2018-12-30 08:31 | NUR ---
RECEIVED TELEPHONE ORDER FROM DR BENJAMIN TO CANCEL UPPER GI SERIES AND ORDER GASTRIC EMPTYING SCAN. ORDER READ BACK AND CONFIRMED.
--- NOTE | 2018-12-30 08:57 | NUR ---
PT RESTING IN BED, SISTER AT BEDSIDE, DR ROACH AT BEDSIDE, RT AT BEDSIDE. PT REFUSING BREATHING TREATMENT. AFTER BEING EDUCATED BY DR ROACH, PT AGREEABLE TO BREATHING TREATMENT. PT EMOTIONAL AND TEARFUL. NO RESPRIATORY DISTRESS NOTED, CALL LIGHT WITHIN REACH. PT RECEIVING BREATHING TREATMENT VIA BIPAP ORDERED BY DR ROACH.
[2018-12-30 09:01] LABS: RED CELL DISTRIBUTION WIDTH 13.6 % (11.5-14.5)
[2018-12-30 09:04] LABS: PLATELET COUNT 432 x10^3mcL (130-400)
--- NOTE | 2018-12-30 09:45 | NUR ---
ARASELI MULTIPLE NEEDLE STITCHER NOTIFIED THAT PRINCE CAMARILLO IN RIJ NEEDS TO BE REMOVED.
--- NOTE | 2018-12-30 09:55 | NUR ---
PER DR WEBB, GI EMP NO LONGER NEEDED. DR WEBB CANCELLED GI EMP AND STATED PT DOES NOT NEED TO BE NPO, ORDERED TO PLACED PT ON CCHO DIET. DR BENJAMIN NOTIFIED THAT DR WEBB CANCELLED GI EMP.
[2018-12-30 09:56] VITALS: BP 111/67
--- NOTE | 2018-12-30 10:19 | NUR ---
PT VOIDED, BED BATH GIVEN, LINENS CHANGED, PT ABLE TO TURN AND REPOSITION, NO RESPRIATORY DISTRESS NOTED, CALL LIGHT WITHIN REACH.
[2018-12-30 11:05] LABS: BAND NEUTROPHIL 1 % (0-10); BASOPHIL 0 % (0-2); MONOCYTE 6 % (0-7); SEGMENTED NEUTROPHILS 85 % (37-75)
[2018-12-30 11:06] LABS: PLATELET MORPHOLOGY PLATELETS INCREASED; rbc morphology (normal/abnorm) ABNORMAL (NORMAL)
--- NOTE | 2018-12-30 11:09 | NUR ---
PT VOIDED, LINENS CHANGED, ASSISTED PT WITH SHAMPOO CAP, SISTER AT BEDSIDE, NO RESPIRATORY DISTRESS NOTED, PT ABLE TO TURN AND REPOSITION SELF. SISTER REQUESTING OPIFOAM FOR COCCYX.
[2018-12-30 12:19] VITALS: BP 113/59
--- NOTE | 2018-12-30 12:51 | NUR ---
PER PT AND SISTER, PHYSICAL WENT WELL AND PT ABLE TO AMBULATE 20 FEET, PT NOW RESTING IN BED, ASSISTED WITH LUNCH TRAY SETUP, SISTER ASSISTING PT TO EAT LUNCH, NO RESPIRATORY DISTRESS NOTED, CALL LIGHT WITHIN REACH.
--- NOTE | 2018-12-30 15:41 | NUR ---
PRINCE CATH TO RIJ REMOVED WITH CATHETER INTACT BY ICU NURSE KENY, GAUZE AND TAPE PLACED ON SITE, NO BLEEDING NOTED.
[2018-12-30 16:15] VITALS: BP 108/54
--- NOTE | 2018-12-30 17:18 | NUR ---
PT RESTING IN BED, NO RESPIRATORY DISTRESS NOTED, DENIES PAIN, NO RESPIRATORY DISTRESS NOTED, RT AT BEDSIDE FOR BREATHING TREATMENT, SISTER AT BEDSIDE, CALL LIGHT WITHIN REACH.
--- NOTE | 2018-12-30 18:12 | NUR ---
PT RESTING IN BED, NO RESPIRATORY DISTRESS NOTED, DENIES PAIN, SISTER AT BEDSIDE, CALL LIGHT WITHIN REACH.
--- NOTE | 2018-12-30 18:20 | NUR ---
PT SISTER REQUESTING EXTRA OPTIFOAM TO BE PLACED AT BEDSIDE FOR PT TO USE NEEDED.
--- NOTE | 2018-12-30 19:14 | NUR ---
ENDORSED CARE TO KESHIA MACK.
--- NOTE | 2018-12-30 19:40 | NUR ---
REC'D REPORT FROM EARLE MACK TO ASSUME CARE. PT IS A/O X4, SPEECH CLEAR AND APPROPRIATE. NO ACUTE DISTRESS NOTED. NO SOB NOTED, RESPS E/U ON O2 3LPM VIA NC. CHEST RISE EQUAL AND SYMMETRICAL. LUNG SOUNDS CLEAR BUL, DIM BASES. TELE MONITOR #[address], SHOWING NSR. CHEST WALL STABLE. DENIES ANY CP, SYNCOPE, OR DIZZINESS. ABD OBESE AND SOFT. MID ABD INCISION WITH DSG CDI NOTED. LLQ COLOSTOMY IN PLACE DRAINING WELL. PULSES PALPABLE X4. BLE NON-PITTING EDEMA NOTED. SCDS IN PLACE. GEN WEAKNESS NOTED. 2 IVS TO LFA INTACT AND PATENT, IVF D5 1/2 NS INFUSING @ 40ML/HR. ALL NEEDS MET AT THIS TIME. CALL LIGHT WITHIN REACH. WILL CONTINUE TO MONITOR.
--- NOTE | 2018-12-30 21:25 | NUR ---
PT SOILED WITH URINE, PT CLEANED AND GOOD [place] CARE PROVIDED. LINENS CHANGED. PT ABLE TO ASSIST WITH REPOSTIONING.
[2018-12-30 21:54] VITALS: BP 112/62
--- NOTE | 2018-12-30 22:36 | NUR ---
PT SEEN SLEEPING COMFORTABLY. NO ACUTE DISTRESS NOTED. NO SOB NOTED, RESPS E/U. CHEST RISE EQUAL AND SYMMETRICAL.
--- NOTE | 2018-12-31 01:30 | NUR ---
PT VOIDED, LINENS SOILED. PT TRANSFERRED TO CHAIR AT BEDSIDE. GOOD [place] CARE PROVIDED. ALL LINENS CHANGED. PT ASSIST BACK TO BED SAFELY.
[2018-12-31 05:48] VITALS: BP 105/53
[2018-12-31 06:34] LABS: RED CELL DISTRIBUTION WIDTH 13.6 % (11.5-14.5)
--- NOTE | 2018-12-31 06:34 | NUR ---
PT VOIDED. PT ASSISTED TO CHAIR AT BEDSIDE. ALL LINENS CHANGED. PT STATES I WANT TO STAY SITTING UP. INSTRUCTED TO CALL WHEN READY TO GO BACK TO BED. PT VERBALIZED UNDERSTANDING. CALL LIGHT WITHIN REACH.
[2018-12-31 06:42] LABS: PLATELET COUNT 497 x10^3mcL (130-400)
--- NOTE | 2018-12-31 06:55 | NUR ---
PT ASSISTED BACK TO BED SAFELY
[2018-12-31 07:02] LABS: CALCIUM 8.1 mg/dL (8.5-10.1); CARBON DIOXIDE 29.4 mmol/L (21-32); CREATININE SERUM 1.4 mg/dL (0.6-1.0); POTASSIUM SERUM 3.9 mmol/L (3.5-5.1)
--- NOTE | 2018-12-31 07:24 | NUR ---
ASSUMED CARE OF PATIENT. SEEN AWAKE AND ALERT THIS MORNING. RESTING IN BED. FAMILY AT BEDSIDE. NO COMPLAINTS OF PAIN OR DISCOMFORT. NO APPARENT DISTRESS NOTED. REMAINS ON 3L O2 VIA NC. IV ON LFA PATENT AND INFUSING 40ML/HR D5 1/2NS. OTHER IV ON LFA SALINE LOCKED. WILL CONTINUE TO MONITOR.
--- NOTE | 2018-12-31 08:47 | NUR ---
PER PT, PATIENT COMPLAINING OF DIZZINESS UPON TRANSFERRING TO BED, REMAINING ON 3L NC, NO DISTRESS NOTED.
[2018-12-31 09:37] VITALS: BP 116/55
--- NOTE | 2018-12-31 10:32 | NUR ---
DRESSING CHANGE TO ABDOMEN DONE BY .
--- NOTE | 2018-12-31 11:32 | NUR ---
IVF DISCONTINUED PER ORDERS. IV'S SALINE LOCKED.
--- NOTE | 2018-12-31 11:54 | NUR ---
3 UNITS REGULA INSULIN PROVIDED PER SLIDING SCALE FOR BS 153
--- NOTE | 2018-12-31 12:08 | NUR ---
[facility]
--- NOTE | 2018-12-31 12:08 | NUR ---
Follow-up Nutrition Assessment: 212 T/B LIZABETH SHEN HR FU Dx: Perforated bowel PMHx: DM, COPD with LUC, breast cancer in remission Labs: (12/31) BG 134H, BUN 35H, CREAT 1.4H, WBC 18.3H Meds: D50%, D 10%, humulin, lantus, Lipitor, miralax, reglan, Pepcid, Zofran, heparin Diet: CCHO +TPN D25%, AA 5%, Rate 40 ml/hr PO Intake: (12/31) 100% breakfast (11/30) 60% dinner, (12/28) 100% lunch, Weights in kg: (12/20) 157.5, (12/21) 161.4, (12/22) 158.7, (12/28) 157 kg, (12/31) 151.9 kg Skin: Abd incision Harvey: 14 I/Os: (12/31) 1546/ 600 (946) Edema: BLE non-pitting edema GI: colostomy at [facility] Last BM: 12/30 RDN Visit (12/31): Patient was alert and oriented with a fried at bedside. Patient said that she ate most of her breakfast this morning and also ate dinner and lunch yesterday. TPN has been discontinued as per Dr. Lynn's orders as PO has improved. Patient does not have any N/V and has been having colostomy output. Patient has unintentionally lost 15# x 10 days. Estimated Nutritional Needs Based on adjusted body weight 79 kg Energy: 3443-1773 (20-25 kcal/kg) Protein: 79-95 g/d (1.0-1.2 g/kg) - preserve LBM Fluid: per doctor Nutrition Diagnosis 1. Inadequate oral intake related to medical condition as evidenced by NPO (improving- patient on CCHO diet, documented PO >75%). 2. Unintentional weight loss related to edema/NPO status as evidenced by documented weight loss of 15# x 10 days. Intervention 1. Recommend continuing CCHO diet. Monitor/Evaluate Goal: Have pt meet at least 75% of estimated needs Monitor: PO intake, Labs, GI function F/U in 2-3 days as high risk 01/02-
[2018-12-31 12:26] LABS: BAND NEUTROPHIL 5 % (0-10); BASOPHIL 0 % (0-2); MONOCYTE 10 % (0-7); SEGMENTED NEUTROPHILS 72 % (37-75)
[2018-12-31 12:28] LABS: PLATELET MORPHOLOGY PLATELETS INCREASED
[2018-12-31 12:40] VITALS: BP 114/55
--- NOTE | 2018-12-31 13:15 | NUR ---
PATIENT IV TO LFA X2 REMOVED DUE TO INFILTRATION. ICE PACK APPLIED. NEW IV TO RH 22G INSERTED. PATENT AND INTACT.
--- NOTE | 2018-12-31 14:12 | NUR ---
BLANCHABLE REDNESS NOTED TO GLUTEAL SKIN FOLDS AND INTERGLUTEAL CLEFT. ZGAURD APPLIED.
--- NOTE | 2018-12-31 14:58 | NUR ---
PHYSICAL THERAPY DAILY NOTES CO-SIGN All documentation done by the Hogshead Head Matcher for 12/31/18 has been reviewed. I agree with the documentation. Reviewed/Co-Signed by: Rabia Navarro PT Documentation Done by:ROSEANNE SHAFFER PTA
--- NOTE | 2018-12-31 14:59 | NUR ---
CALL FROM [facility] AT [employer]. [facility] NOT APPROVED. [employer] TO LEAVE VOICEMAIL FOR SALESFORCE DEVELOPER LUISA.
[2018-12-31 17:58] VITALS: BP 131/62
--- NOTE | 2018-12-31 18:12 | NUR ---
EPISODE OF INCONTINENCE. PERICARE PROVIDED. ZGAURD APPLIED TO GLUTEAL FOLDS AND INTERGLUTEAL CLEFT. PATIENT REPOSITIONED. DRESSING TO ABDOMEN REMAINS INTACT. COLOSTOMY BAG REMAINS INTACT.
--- NOTE | 2018-12-31 18:43 | NUR ---
PATIENT SEEN RESTING IN BED WITH EQUAL AND UNLABORED RESPIRATIONS. REMAINS ON 3L O2 VIA NC. NO APPARENT DISTRESS OR DISCOMFORT NOTED. IV ON RH REMAINS SALINE LOCKED WITH NO REDNESS/SWELLING. COLOSTOMY BAG AND ABDOMINAL DRESSING REMAINS INTACT. WILL ENDORSE CARE TO ONCOMING RN.
--- NOTE | 2018-12-31 19:35 | NUR ---
RECIEVED PT RESTING IN BED, NO S/S OF PAIN NOTED. AOX4, DENIES RODRIGUEZ/DIZZINESS. TELE # 3, SR 80, DENIES CP. PULSES PALPABLE BILAT, DENIES NUMBNESS/TINGLING IN FEET. PT OBESE, NON PITTING EDEMA NOTED BLE. HEP SQ. RESP EVEN AND UNLABORED ON 2LNC. DENIES SOB. CONGESTED UPPER LOBES, DIM BILAT BASES. WILL ATTEMPT TO PUT PATIENT ON BIPAP THIS EVENING. PT S/P EXP LAP WITH SIGMOID RESECTION AND COLOSTOMY BAG IN PLACE TO LLQ. COLOSTMY BAG DRAINING LIQUID BROWN STOOL. SKIN AROUND BAG CDI. PT WITH MIDLINE ABD INCISION, COVERED WITH ABD PAD AND FOAM TAPE. DSG CDI. PER DAYSHIFT, DR. Samuel CAME IN THIS AFTERNOON AND CHANGED DSG. WILL CONTINUE TO MONITOR SATURATION AMOUNT. PT INCONTINENT OF URINE, DENIES DYSURIA. GENERALIZED WEAKNESS, MAX ASSIST TO CHAIR. PT ABLE TO REPOSITION SELF IN BED, WILL ASSIST WHEN NEEDED. IV SITE TO THE SALINE LOCKED, NO REDNESS, SWELLING OR PAIN NOTED. ALL COMFORT AND SAFETY MEASURES PROVIDED FOR, CALL LIGHT WITHIN REACH, BED IN LOWEST POSITION, WILL CONTINUE TO MONITOR.
[2018-12-31 21:04] VITALS: BP 107/63
--- NOTE | 2018-12-31 23:23 | NUR ---
RECEIVED CALL FROM TELE MONITOR IN REGARDS TO PT TELE STRIP DEMONSTRATING TRIGEMY WHICH IS A NEW FINDING. PTORIGINALLY SR 80. UPON ASSESSMENT, PT DENIES PALPITATION, DENIES CP. PT DENIES FEELING ANY DIFFERENT FROM EARLIER. NOTIFIED DR. MATT IN REGARDS TO PT TRIGEMETY SR 93. WILL WAIT FOR ORDERS.
--- NOTE | 2019-01-01 05:05 | NUR ---
PT RESTED IN INTERVALS DURING SHIFT, NO ACUTE CHANGES OCCURRING OVERNIGHT. PT REPORTS PAIN UNDER CONTROL DURING SHIFT. IV SITE REMAINS PATENT. NO REDNESS, SWELLING OR PAIN NOTED. PT REFUSING BIPAP LAST NIGHT. REMAINS ON 2LNC. DENIES SOB. ABD DSG REMIANS CDI. ALL COMFORT AND SAFETY MEASURES PROVIDED FOR, CALL LIGHT WITHIN REACH, BED IN LOWEST POSITION, WILL CONTINUE TO MONITOR.
[2019-01-01 05:33] VITALS: BP 111/57
--- NOTE | 2019-01-01 07:20 | NUR ---
RECEIVED PT. IN BED A/A/O X3. NO SOB, NO N/V NOTED. PT. DENIES ANY PAIN AT THIS TIME. PT. APPEARS IRRITABLE AT TIMES. IV SITE NOTED TO R HAND. COLOSTOMY NOTED TO LLQ OF ABDOMEN. LOOSE BROWN STOOL NOTED IN COLOSTOMY. BED IN LOW POS., CALL LIGHT WITHIN REACH. SIDE RAILS UP X3.
[2019-01-01 08:57] VITALS: BP 111/57
[2019-01-01 09:12] LABS: CALCIUM 8.7 mg/dL (8.5-10.1); CARBON DIOXIDE 27.9 mmol/L (21-32); CREATININE SERUM 1.4 mg/dL (0.6-1.0)
[2019-01-01 09:15] LABS: BASOPHIL % 0.9 % (0-2); RED CELL DISTRIBUTION WIDTH 13.3 % (11.5-14.5)
[2019-01-01 09:29] VITALS: BP 103/64
[2019-01-01 09:31] LABS: PLATELET COUNT 558 x10^3mcL (130-400)
[2019-01-01 13:27] VITALS: BP 98/61
--- NOTE | 2019-01-01 17:04 | NUR ---
NEW IV SITE RESTARTED AT R AC WITH GAUGE #20 DUE TO ACCIDENTAL DISLODGEMENT OF OLD IV SITE.
[2019-01-01 18:12] VITALS: BP 108/62
--- NOTE | 2019-01-01 19:10 | NUR ---
RECEIVED PATIENT FROM DAY SHIFT RN. PATIENT WAS SEEN AND IS RESTING COMFORTABLY IN BED. NO DISTRESS NOTED. BREATHING EVEN AND UNLABORED ON 2L NC. NO SOB OR RESP DISTRESS NOTED. BIPAP AT BEDSIDE FOR NIGHT TIME USE, BUT PATIENT IS REFUSING TO USE TO IT. WEAK PEDAL PULSES NOTED. NONPITTING EDEMA TO THE BLE. LLQ COLOSTOMY NOTED WITH MINIMAL BROWN LIQUID STOOL. STOMA IN INTACT AND PINK. CIRCULATION WNL. PATIENT IS INCONTINENT OF URINE AT TIMES. GENERALIZED WEAKNESS. FALL RISK. MIDLINE ABD INCISION COVERED WITH ABD PAD AND FOAM TAPE, CDI. NO DRAINAGE OR ODOR NOTED. ERYTHEMA TO THE BUTTOCKS, NECK, PERINEUM, AND GLUTEAL FOLDS. IV TO THE RAC LEAKING AND INFLITRATED. WILL INSERT NEW IV. DENIES CHEST PAIN/PRESSURE. TELE #3 NSR WITH ELEVATED T. NO C/O PAIN AT THIS TIME. COMFORT AND SAFETY MEASURES IS PLACE. BED IS LOCKED AND IN THE LOWEST POSITION. SIDE RAILS UP X2. CALL LIGHT IS WITHIN REACH. WILL CONTINUE TO MONITOR.
[2019-01-01 20:56] VITALS: BP 131/65
--- NOTE | 2019-01-01 22:38 | NUR ---
REMOVED IV TO THE RAC. INFILTRATED AND LEAKING. MARTINA ROPER, ATTEMPTED TO PLACE A NEW IV, BUT WAS UNSUCCESSFUL. PATIENT IS REFUSING NEW IV AT THIS TIME. PATIENT STATES, "I NEED A BREAK, COME BACK IN AN HOUR." CANNOT START ABD MERREM AT THIS TIME. WILL NOTIFY MD WELL. PATIENT MADE COMFORTABLY IN BED. NO DISTRESS NOTED. DENIES PAIN AT THIS TIME. PATIENT STATES "I JUST WANT TO SLEEP." CALL LIGHT IS WITHIN REACH. WILL CONTINUE TO MONITOR.
--- NOTE | 2019-01-02 01:48 | NUR ---
ATTEMPTED TO PLACE NEW IV AGAIN, BUT WAS UNSUCCESSFUL. PATIENT DID NOT WANT ANOTHER ATTEMPT TO BE DONE AT THIS TIME. PATIENT STATES "COME BACK AT 3AM". IV MERREM DOSE AT 2200 WILL NOT BE GIVEN DUE TO NO IV ACCESS. DR PIERRE AND DR MATT MADE AWARE.
--- NOTE | 2019-01-02 03:25 | NUR ---
NEW IV INSERTED SUCCESSFUL BY MARTINA ORTIZ, TO THE LEFT HAND, 24G. PATIENT WAS COOPERATIVE AND TOLERATED WELL. NEW IV FLUSHES WELL. PATENT AND INTACT. NO REDNESS OR SWELLING NOTED. SALINE LOCK AT THIS TIME.
--- NOTE | 2019-01-02 03:45 | NUR ---
PATIENT GIVE JELLO PER REQUEST. PATIENT IS ALSO C/O / GENERALIZED BODY PAIN. PATIENT ONLY HAD TYLENOL PRN FOR PAIN. PATIENT SAID SHE WILL TAKE IT. ADMINISTERED PRN TYLENOL PRESCRIBED. PATIENT MADE COMFORTABLY WITH DANTE VUONG. NO DISTRESS NOTED. BREATHING EVEN ON 2L NC WITH HUMDIFIER. PATIENT REFUSING BIPAP AND BREATHING TREATMENTS. SAFETY MEASURES IN PLACE. CALL LIGHT IS WITHIN REACH. WILL CONTINUE TO MONITOR.
[2019-01-02 06:09] VITALS: BP 104/50
--- NOTE | 2019-01-02 06:12 | NUR ---
PATIENT SLEPT IN INTERVALS THROUGHOUT THE NIGHT. NO DISTRESS NOTED. BREATHING EVEN ON 2L NC WITH HUMIDIFER. NO SOB OR DISTRESS NOTED. DENIES CHEST PAIN/PRESSURE. C/O PAIN X1 THROUGHOUT THE NIGHT. ATTEMPTED IV X3. IV TO THE LEFT HAND, 24G. INFUSING ABX WELL AT THIS TIME. PATENT AND INTACT. NO REDNESS OR SWELLING NOTED. PATIENT WAS TEARFUL AT TIMES. SAYING SHE CAN'T DO THE THINGS SHE USE TO DO. COLOSTOMY TO LLQ WITH 400ML OF BROWN LIQUID STOOL. DRESSING TO MID ABD, CDI. SAFETY MEASURES IN PLACE. CALL LIGHT IS WITHIN REACH. WILL ENDORSE CARE TO DAY SHIFT RN.
--- NOTE | 2019-01-02 06:50 | NUR ---
OPEN WOUND FOUND TO THE RIGHT ABD FOLD WHILE CLEANING PATIENT WITH DANTE VUONG. 2CM X 0.5CM X 0.5CM NOTED. CUSTOMER SERVICE ADVISOR. NO DRAINAGE NOTED. NO ODOR. NOTED. JOANNE. PICTURE TAKEN AND IN CHART.
--- NOTE | 2019-01-02 07:20 | NUR ---
RECEIVED PT FROM TERMINAL PRESS OPERATOR RN. Moose/OTILIA. TELE#3. DENIES CHEST PAIN/PRESSURE. RESPIRATIONS EQUAL AND UNLABORED ON 2L NC. DENIES SOB. PT REFUSING BREATHING TREATMENTS. MIDLINE ABDOMINAL INCISION COVERED WITH ABD PAD AND FOAM TAPE, CDI. ABDOMINAL FOLD OPEN WOUND JOANNE. LLQ COLOSTOMY IN PLACE DRAINING ORANGE LIQUID STOOL. IV TO LH SALINE LOCKED. NO REDNESS OR SWELLING NOTED. WILL CONTINUE TO MONITOR. CALL LIGHT IN REACH. BED IN LOWEST POSITION.
[2019-01-02 08:00] VITALS: BP 108/67
--- NOTE | 2019-01-02 08:50 | NUR ---
PT IN BED WITH HOB ELEVATED. NO ACUTE RESP DISTRESS NOTED ON 2L NC. DENIES SOB AT THIS TIME. GIVEN PO MEDS. TOLERATED WELL. PT DENIES ANY PAIN AT THIS TIME. PT STATES SHE FEELS WARM, ENCOURAGED COOLING MEASURES. IV SALINE LOCKED TO LH. NO REDNESS OR SWELLING NOTED. WILL CONTINUE TO MONITOR. CALL LIGHT IN REACH. BED IN LOWEST POSITION.
[2019-01-02] MEDS ORDERED: LABETALOL HCL100 MG PO (09:26)
[2019-01-02] MEDS ORDERED: MERREM IV1 GM INJ (09:26)
[2019-01-02] MEDS ORDERED: SEN PO (09:27)
[2019-01-02] MEDS ORDERED: MIRALAX17 GM/Dose PO (09:27)
[2019-01-02] MEDS ORDERED: REGLAN10 M1 PO (09:27)
[2019-01-02] MEDS ORDERED: PROTONIX40 MG PO (09:28)
[2019-01-02] MEDS ORDERED: LIPI20 PO (09:28)
[2019-01-02 10:43] LABS: CALCIUM 8.5 mg/dL (8.5-10.1); CREATININE SERUM 1.3 mg/dL (0.6-1.0); POTASSIUM SERUM 4.6 mmol/L (3.5-5.1)
--- NOTE | 2019-01-02 10:50 | NUR ---
ENTERED PTS ROOM AT 0800 TO GIVE HHNTX. PT REFUSES TO USE EZPAP OR BIPAP FOR TX PURPOSE. HAD TO CONVINCE PT TO TAKE HHNTX. TREATMENT WAS GIVEN AND PT WAS ENCOURAGED TO USE I.S. CPT WAS ALSO REFUSED AT THIS TIME. WILL ENCOURAGE PT TO CONTINUE TX. WILL MONITOR.
--- NOTE | 2019-01-02 11:07 | NUR ---
PT SITTING UP IN BED. PT CONCERNED ABOUT WHERE SHE WILL BE TRANSFERRED TO. PT ASSURED SHE WILL BE UPDATED SOON PLACEMENT IS FOUND. PT WANTS SISTER TO BE NOTIFIED OF PLACEMENT. ASSURED PT HER SISTER WILL BE NOTIFIED. ALL QUESTIONS AND CONCERNS ADDRESSED.
[2019-01-02 11:18] LABS: BASOPHIL % 0.9 % (0-2); RED CELL DISTRIBUTION WIDTH 13.6 % (11.5-14.5)
[2019-01-02 11:21] LABS: PLATELET COUNT 547 x10^3mcL (130-400)
--- NOTE | 2019-01-02 11:52 | NUR ---
PT IN BED RESTING. NO ACUTE RESP DISTRESS NOTED ON 2L NC. PT DENIES PAIN AT THIS TIME. OFFERED TO CHANGE AND REPOSITION, PT STATES CAN YOU DO IT LATER. GIVEN PO MEDS. TOLERATED WELL. IV TO LH FLUSHED WELL. IV ANTIBIOTICS INFUSING ORDERED. WILL CONTINUE TO MONITOR. CALL LIGHT IN REACH. BED IN LOWEST POSITION.
[2019-01-02 11:55] VITALS: BP 111/69
--- NOTE | 2019-01-02 14:21 | NUR ---
Follow-up Nutrition Assessment: 212 T/B LIZABETH SHEN HR FU Dx: Perforated bowel PMHx: DM, COPD with LUC, breast cancer in remission Labs: (01/02) BG 155H, BUN 25H, CREAT 1.3H, WBC 16.0H Meds: D50%, D 10%, humulin, lantus, Lipitor, miralax, reglan, Pepcid, Zofran, heparin Diet: CCHO PO Intake: (01/02) lunch 50%, (01/01) lunch 75%, breakfast 100% (12/31) 100% breakfast Weights in kg: (12/21) 161.4, (12/22) 158.7, (12/28) 157 kg, (12/31) 151.9 kg, (01/02) 152 kg Skin: Abd incision, R abd wound Harvey: 14 I/Os: (01/02) 2280/ 400 (1880) Edema: BLE edema GI: colostomy at [facility] Last BM: 01/01 RDN Visit (01/02): Patient was alert and oriented with a fried at bedside. RN Dilia said that she ate most of 50% breakfast and 50% lunch today. Patient does not have any N/V and is tolerating the diet well. Patient is awaiting transfer to SNF. Estimated Nutritional Needs Based on adjusted body weight 79 kg Energy: 4495-0285 (20-25 kcal/kg) Protein: 79-95 g/d (1.0-1.2 g/kg) - preserve LBM Fluid: per doctor Nutrition Diagnosis 1. Inadequate oral intake related to medical condition as evidenced by documented PO 50%. 2. Unintentional weight loss related to edema/NPO status as evidenced by documented weight loss of 15# x 10 days. (ongoing) Intervention 1. Recommend continuing CCHO diet. Monitor/Evaluate Goal: Have pt meet at least 75% of estimated needs Monitor: PO intake, Labs, GI function F/U in 2-3 days as high risk 01/04-
--- NOTE | 2019-01-02 14:21 | NUR ---
PHYSICAL THERAPY NOTE ATTEMPTED FOR PHYSICAL SCHEDULED VISIT. PATIENT REFUSED TO PARTICIPATE 2/2 TO BEING TOO SLEEPY. WILL BE ATTEMPTED TOMORROW .
--- NOTE | 2019-01-02 14:21 | NUR ---
[facility]
--- NOTE | 2019-01-02 15:28 | NUR ---
PT SITTING UP IN BED. HOT MILL SUPERVISOR AT BEDSIDE. DRESSING CHANGED TO ABDOMINAL INCISION. PACKED WITH IODOFORM, COVERED WITH GAUZE, ABD PAD AND FOAM TAPE. GAUZE COVERED TO RT LOWER ABDOMINAL WOUND COVERED WITH HYDROGUARD. IV ANTIBIOTICS INFUSING ORDERED. PT C/O ABDOMINAL PAIN TO OPERATIVE SITE 04/02. MEDICATED PER EMAR. WILL CONTINUE TO MONITOR. CALL LIGHT IN REACH. BED IN LOWEST POSITION.
--- NOTE | 2019-01-02 16:00 | NUR ---
WOUND CARE EVALUATION NOTE: SURGICAL WOUND DRESSING CHANGED WITH PRIMARY,COLOSTOMY AND MID ABDOMINAL SURGICAL WOUNDS EVALUATION PENDING, PT. STATE SHE IS TOO TIRE TO STAY IN BED AND DOESN'T WANT FURTHER EVALUATION DONE. REFUSE TO TURN AND REPOSITION FOR BEDDING CHANGE PT, INSIST TO SIT UP AT BED SIDE CHAIR. CHARGE NURSE MADE AWARD. -INTERTRIGO TO LOWER ABDOMINAL WITH PARTIAL THICKNESS LOSS OF SKIN TO RLQ ABDOMINAL, 0.5X1.5X0.2 CM WOUND BED IS PALE PINK , MOIST, NO ODOR, PERIWOUND SKIN MOIST AND INTACT. RECOMMENDATION TO CLEANSE RLQ ABD. WITH NS. PAT DRY AND APPLY HYDRAGEL AND COVER WITH DRY DRESSING QD AND PRN IF SOILING. -APPLY ANTIFUNGAL CREAM TO INTERTRIGO TO LOWER ABDOMINAL QD AND LEAVE IT OPEN TO AIR
[2019-01-02 16:06] VITALS: BP 117/65
--- NOTE | 2019-01-02 16:49 | NUR ---
PT IN BED RESTING. NO ACUTE RESP DISTRESS NOTED ON RA. PT STATES ABDOMINAL PAIN HAS IMPROVED SINCE RECEIVING NORCO. IV PATENT AND INFUSING TO LH. NO REDNESS OR SWELLING NOTED. GIVEN PO MEDS. TOLERATED WELL. EMPTIED 200 ML OF ORANGE LIQUID FROM COLOSTOMY. WILL CONTINUE TO MONITOR. CALL LIGHT IN REACH. BED IN LOWEST POSITION.
--- NOTE | 2019-01-02 18:27 | NUR ---
PT REPOSITIONED SUPINE IN BED. PT ABLE TO REPOSITION SELF IN BED. TELE#3. NO ACUTE RESP DISTRESS NOTED ON 2L NC. IV TO LH PATENT AND INFUSING. NO REDNESS OR SWELLING NOTED. ABDOMINAL DRESSING COVERED WITH FOAM TAPE CDI. NO DRAINAGE NOTED. WILL ENDORSE TO VIDEO GAME TECHNICIAN RN. CALL LIGHT IN REACH. BED IN LOWEST POSITION.
--- NOTE | 2019-01-02 19:32 | NUR ---
RECEIVED PT FROM DAY SHIFT RN. PT AAOX4 DENIES HEADAHE OR DIZZINESS. PT BREATHING EVEN AND UNLABORED ON NC 2L/MIN WITH HUMIDIFIER. ABD DISTENDED, ACTIVE BOWEL SOUNDS. PT DENIES ABD PAIN/N/V. ABD WOUND COVERED WITH DRESSING, CDI. ERYTHEMA UNDER ABD FOLDS AND PERINIUM REGION. BLE AND BUE EDEMA NOTED. GENERALIZED WEAKNESS NOTED. IV LEFT HAND PATENT. PT HAS A COLOSTOMY TO LLQ. NO SIGNS OF ACUTE DISTRESS NOTED. SAFETY PRECAUTIONS IN PLACE. WILL CONTINUE TO MONITOR.
[2019-01-02 19:45] VITALS: BP 116/61
--- NOTE | 2019-01-02 21:57 | NUR ---
PT REPORTED HAVING BACK PAIN, REQUESTING FOR NORCO. PT STATES SHE DID NOT HAVE ANY REACTION TO NORCO EARLIER OR IN THE PAST. MEDICATED PER EMAR. CALL BUTTON WITHIN REACH. WILL CONTINUE TO MONITOR.
--- NOTE | 2019-01-02 23:50 | NUR ---
PT REPORTED HAVING A HEADACHE, MEDICATED PER EMAR. WILL CONTINUE TO MONITOR.
--- NOTE | 2019-01-03 00:12 | NUR ---
PER DR PLATA TO D/C VANCOMYCIN AND CONTINUE WITH MERREM.
--- NOTE | 2019-01-03 00:33 | NUR ---
PT RESTING, BREATHING EVEN AND UNLABORED WITH NO SIGNS OF DISTRESS NOTED. CALL BUTTON WITHIN REACH. SAFETY PRECAUTIONS IN PLACE. WILL CONTINUE TO MONITOR.
--- NOTE | 2019-01-03 03:18 | NUR ---
ROUNDS MADE. PT RESTING. BREATHING EVEN AND UNLABORED. NO SIGNS OF DISTRESS NOTED. CALL BUTTON WITHIN REACH. SAFETY PRECAUTIONS IN PLACE. WILL CONTINUE TO MONITOR.
--- NOTE | 2019-01-03 05:49 | NUR ---
PT REPORTED HAVING BACK PAIN, MEDICATED PER EMAR. WILL CONTINUE TO MONITOR.
--- NOTE | 2019-01-03 06:09 | NUR ---
PT SLEPT MOST OF THE NIGHT WITH NO SIGNS OF DISTRESS NOTED. BREATHING EVEN AND UNLABORED, NC 2L/MIN WITH HUMIDIFIER. RT PROTOCOL. PT REPORTED HAVING BODY PAIN, MEDICATED PER EMAR WITH SOME RELIEF. IV PATENT. PT ENCURAGED TO TURN AND REPOSITIONED FREQUENTLY. ENCOURAGE PT TO USE IS AT BEDSIDE. MEDICATED PER EMAR. NO SIGNS OF ACUTE DISTRESS NOTED. CALL BUTTON WITHIN REACH. SAFETY PRECAUTIONS IN PLACE. WILL CONTINUE TO MONITOR AND ENDORSE CARE TO DAY SHIFT RN.
[2019-01-03 06:15] VITALS: BP 106/59
--- NOTE | 2019-01-03 07:27 | NUR ---
PT AWAKE NO SIGNS OF DISTRESS NOTED. ENDORSED CARE TO DAY SHIFT RN, ALL QUESTIONS ADDRESSED.
--- NOTE | 2019-01-03 07:30 | NUR ---
RECEIVED PT FROM STATION USHER RN. Moose/OX4. TELE#3. PT LAYING FLAT IN BED. PT C/O SOB AND PAIN TO LEFT LOWER LOBE. NO ACUTE RESP DISTRESS NOTED ON 2L NC. HOB ELEVATED. PT AGREEABLE TO BREATHING TREATMENT. RT CALLED. COLOSTOMY TO LLQ IN PLACE DRAINING ORANGE STOOL. ABDOMINAL DRESSING CDI. NO DRAINAGE NOTED. ABDOMINAL FOLD DRESSING CDI. IV TO LH PATENT AND INFUSING. NO REDNESS OR SWELLING NOTED. WILL CONTINUE TO MONITOR. CALL LIGHT IN REACH. BED IN LOWEST POSITION.
--- NOTE | 2019-01-03 07:55 | NUR ---
PT SITTING UP IN BED. PT C/O PAIN TO LT LOWER LOBE. RT AT BEDSIDE GIVING BREATHING TREATMENT. RT RECOMMENDED PT USE BIPAP, PT REFUSED. WILL CONTINUE TO MONITOR.
--- NOTE | 2019-01-03 07:58 | NUR ---
PT C/O SOB AND RIGHT SIDE FLANK/CHEST PAIN. EZPAP TX GIVEN TO PT WITH DUONEB AND PULMICORT. PT REFUSED BIPAP DESPITE SOB. RN BEDSIDE.
[2019-01-03 09:00] VITALS: BP 100/53
--- NOTE | 2019-01-03 09:00 | NUR ---
PT SITTING UP IN BED. NO ACUTE RESP DISTRESS NOTED ON 2L NC. PT STATES BREATHING TREATMENT HELPS. PT STATES SHE BELIEVES PAIN TO LEFT CHEST IS FROM PULLING HERSELF UP IN BED. PT IS AGREEABLE TO CONTINING TO GET BREATHING TREATMENTS THROUGHOUT THE DAY. PT ENCOURAGED TO GET OUT OF BED TODAY AND WORK WITH PHYSCIAL THERAPY. PT VERBALIZED UNDERSTANDING. GIVEN PO MEDS. TOLERATED WELL. DR. WEBB AT BEDSIDE WITH PT. WILL CONTINUE TO MONITOR. CALL LIGHT IN REACH. BED IN LOWEST POSITION.
--- NOTE | 2019-01-03 10:29 | NUR ---
SPOKE WITH MAHENDRA PHARMACIST PER MAHENDRA VANCOMYCIN ORDER WAS NOT D/C'D CORRECTLY AND SHE WILL D/C CHUCK.
--- NOTE | 2019-01-03 11:55 | NUR ---
PT IN BED RESTING. NO ACUTE RESP DISTRESS NOTED ON 2L NC. PT RECEIVED BREATHING TREATMENT. PT STATES HE BREATHING HAS IMPROVED SINCE RECEIVING TREATMENTS. GIVEN PO MEDS. TOLERATED WELL. IV SALINE LOCKED TO HAND. NO REDNESS OR SWELLING NOTED. WILL CONTINUE TO MONITOR. CALL LIGHT IN REACH. BED IN LOWEST POSITION.
--- NOTE | 2019-01-03 12:52 | NUR ---
PT SITTING UP IN BED. NO ACUTE RESP DISTRESS NOTED ON 2L NC. PT ASKING TO SIT UP IN CHAIR. ASSISTED PT TO CHAIR. PT TOLERATED WELL. PT STILL C/O TENDERNESS TO RIGHT SIDE. WILL CONTINUE TO MONITOR. CALL LIGHT IN REACH.
--- NOTE | 2019-01-03 13:31 | NUR ---
PT SITTING UP IN CHAIR. PT ASKING TO GO BACK TO BED, ASSISTED PT BACK TO BED. DRESSING TO LOWER ABDOMEN LOOSE. CHANGED OUT ABDOMINAL PAD AND GAUZE SECURED WITH FOAM TAPE. PT STATES SHE HAVING PAIN TO SHOULDER STILL. ENCOURAGED PT TO CONTINUE TO REPOSITION IN BED. PT VERBALIZED UNDERSTANDING. WILL CONTINUE TO MONITOR. CALL LIGHT IN REACH. BED IN LOWEST POSITION.
--- NOTE | 2019-01-03 13:59 | NUR ---
PT IN BED RESTING. NO ACUTE RESP DISTRESS NOTED ON 2L NC. PT C/O PAIN 9/10 TO LEFT SHOULDER. MEDICATED PER EMAR. IV ANTIBIOTICS INFUSING ORDERED. NO REDNESS OR SWELLING NOTED. FAMILY AT BEDSIDE. WILL CONTINUE TO MONITOR. CALL LIGHT IN REACH. BED IN LOWEST POSITION.
[2019-01-03 14:05] VITALS: BP 113/57
--- NOTE | 2019-01-03 17:00 | NUR ---
PT SITTING UP IN BED. APPLIED WARM BLANKET TO LEFT SHOULDER. PT STATES SHOULD PAIN IS IMPROVING WITH WARM COMPRESS. ERYTHEMA NOTED TO LFA, PHOTO GRAPH TAKEN. GIVEN PO MEDS. TOLERATED WELL. BLOOD SUGAR CHECKED WAS 139. NO COVERAGE NEEDED. FAMILY. AT BEDSIDE. WILL CONTINUE TO MONITOR. CALL LIGHT IN REACH. BED IN LOWEST POSITION.
--- NOTE | 2019-01-03 18:02 | NUR ---
PT SITTING UP IN BED. FAMILY AT BEDSIDE. PT C/O OF NOSE BLEED. NOTED SMALL AMOUNT OF BLOOD FROM RT NARE. ENCOURAGED PT TO APPLY PRESSURE. NO ACUTE RESP DISTRESS NOTED ON 2L NC. PT C/O FEELING NAUSEOUS. MEDICATED PER EMAR. PT STATES SHE WANTS TO WAIT TO EAT AND WANTS TO IN A LITTLE WHILE. PT STATES SHE NO LONGER WANTS TO SIT IN CHAIR TO EAT. WILL CONTINUE TO MONITOR. CALL LIGHT IN REACH. BED IN LOWEST POSITION.
[2019-01-03 18:22] VITALS: BP 104/58
--- NOTE | 2019-01-03 18:29 | NUR ---
PT SITTING UP IN BED. NO ACUTE RESP DISTRESS NOTED ON 2L NC. PT STATES BLEEDING TO RT NARE HAS STOPPED. PT STATES NAUSEA HAS IMPROVED SINCE RECEIVING ZOFRAN. IV TO LH SALINE LOCKED. NO REDNESS OR SWELLING NOTED. ABDOMINAL DRESSING CDI, NO DRAINAGE NOTED. COLOSTOMY INTACT, DRAINING ORANGE STOOL. WILL ENDORSE TO EATING DISORDER SPECIALIST RN. CALL LIGHT IN REACH. BED IN LOWEST POSITON.
--- NOTE | 2019-01-03 19:30 | NUR ---
RECEIVED PT FROM DAY SHIFT RN. PT AAOX4 DENIES HEADAHE OR DIZZINESS. PT BREATHING EVEN AND UNLABORED ON NC 2L/MIN WITH HUMIDIFIER. TELE # 3 SR HR 83. PT DENIES CHEST PAIN OR PRESSURE. ABD DISTENDED, ACTIVE BOWEL SOUNDS. PT DENIES ABD PAIN/N/V. ABD WOUND COVERED WITH DRESSING, CDI. ERYTHEMA UNDER ABD FOLDS AND PERINIUM REGION. BLE AND BUE EDEMA NOTED. GENERALIZED WEAKNESS NOTED. IV LEFT HAND PATENT. PT HAS A COLOSTOMY TO LLQ. NO SIGNS OF ACUTE DISTRESS NOTED. SAFETY PRECAUTIONS IN PLACE. SISTER AT BEDSIDE. WILL CONTINUE TO MONITOR.
[2019-01-03 20:30] VITALS: BP 105/61
--- NOTE | 2019-01-03 21:26 | NUR ---
PT REPORTED BACK PAIN. MEDICATED PER EMAR. WILL CONTINUE TO MONITOR.
--- NOTE | 2019-01-03 23:27 | NUR ---
RT AT BEDSIDE.
--- NOTE | 2019-01-03 23:27 | NUR ---
PT REPORTED FEELING NAUSEAS. MEDICATED PER EMAR. WILL MONITOR.
--- NOTE | 2019-01-04 01:21 | NUR ---
TURN AND REPOSITIONED PT, NO SIGNS OF DISTRESS NOTED. CALL BUTTON WITHIN REACH. SAFETY PRECAUTIONS IN PLACE. WILL CONTINUE TO MONITOR.
--- NOTE | 2019-01-04 03:10 | NUR ---
PT REPORTED HAVING BACK PAIN 01/31. MEDICATED PER EMAR. CALL BUTTON WITHIN REACH. SAFETY PRECAUTIONS IN PLACE. WILL CONTINUE TO MONITOR.
--- NOTE | 2019-01-04 05:01 | NUR ---
PT SLEPT MOST OF THE NIGHT WITH NO SIGNS OF DISTRESS NOTED. BREATHING EVEN AND UNLABORED, NC 2L/MIN WITH HUMIDIFIER. RT PROTOCOL. PT REPORTED HAVING BACK PAIN AND LEFT SIDE OF BODY PAIN, MEDICATED PER EMAR WITH SOME RELIEF. IV PATENT. PT ENCURAGED TO TURN AND REPOSITIONED FREQUENTLY. ENCOURAGE PT TO USE IS AT BEDSIDE. MEDICATED PER EMAR. NO SIGNS OF ACUTE DISTRESS NOTED. CALL BUTTON WITHIN REACH. SAFETY PRECAUTIONS IN PLACE. WILL CONTINUE TO MONITOR AND ENDORSE CARE TO DAY SHIFT RN.
[2019-01-04 06:04] VITALS: BP 108/65
[2019-01-04 06:39] LABS: CALCIUM 9.3 mg/dL (8.5-10.1); CARBON DIOXIDE 31.3 mmol/L (21-32); CREATININE SERUM 1.4 mg/dL (0.6-1.0); POTASSIUM SERUM 4.7 mmol/L (3.5-5.1)
--- NOTE | 2019-01-04 07:21 | NUR ---
PT AWAKE NO SIGNS OF DISTRESS NOTED. ENDORSED CARE TO DAY SHIFT RN, ALL QUESTIONS ADDRESSED.
--- NOTE | 2019-01-04 07:30 | NUR ---
PT ENDORSE TO ME THIS MORNING. LAYING IN BED RESTING. AA/O X4. BREATHING EVEN AND UNLABOREDO ON 2L NC, NO ACUTE RESP DISTRESS OR SOB NOTED. TELE 3 NSR NOTED, HR 78, DENIES ANY CP OR PRESSURE. BLE NONPITTING EDEMA NOTED, MARY HANDS AND WRIST 1+ NOTED. COLOSTOMY LLQ INTACT AND DRAINING NOTED. VOIDS FREELY. GEN WEAKNESS, KNOWS TO CALL FOR ASSIST. MIDLINE ABD INCISION NOTED WITH SURG DRSG/ INTACT. ERYTHEMA TO BUTTOCKS, PERINEUM, GLUTEAL FOLDS/ Z GUARD APPLIED. IV TO THE L WRIST 24 G INTACT AND PATENT,NO REDNESS OR SWELLING NOTED. CALL LIGHT IN REACH. BED IN LOW POSITION /WILL CONTINUE TO MONITOR.
[2019-01-04 07:40] VITALS: BP 100/51
[2019-01-04 09:04] VITALS: BP 120/70
--- NOTE | 2019-01-04 09:20 | NUR ---
PT C/O ABD AND BACK PAIN. MEDICATED PER EMAR. WILL CONTINUE TO MONITOR.
--- NOTE | 2019-01-04 10:20 | NUR ---
K PAD APPLIED TO PT BACK FOR COMFORT.
--- NOTE | 2019-01-04 11:32 | NUR ---
Intervention/RDN Recommendation(s): 1. Continue on CCHO diet as tolerated.
--- NOTE | 2019-01-04 11:32 | NUR ---
Follow-up Nutrition Assessment- Dx: perforated bowel Labs: (01/04) Na 137, K 4.7, Glu 132 H, BUN 20 H, Cr 1.4 H, H/H 9.07/19 Meds: D10%, D50%/water, Humulin R, Lantus, Lipitor, Miralax, [place], Reglan, Senokot, Tylenol, Vancocin, Zofran Diet: [facility] PO Intakes: (01/03) D: 100%, L: 30%, B: 40%; (01/02) D: 80%, L: 30%, (01/01) D: 75%, L: 100%; overall average x 3 days = 65%, this provides 1112 kcal and 67 gm protein to meet 70% est kcal needs (inadequate) and 84% est protein needs (adequate). Weights: (01/02) 152 kg Skin: abd incision, rt abd wound Edema: none noted Last BM: 01/03/19 x 1, orange stool from colostomy Per nephrology consult, Pt noted to be nonoliguric acute kidney injury from ATN secondary to septic shock, normal Cr and bland UA on admission, no e/o obstruction from CT. Pt was on HD but no longer needs it, HD cath removed. Septic shock with lactic acid from perforated bowel - off pressors, resolved. Kidney function noted to have improved. No indication for diuretics. Pt awaiting to transfer to SNF. RDN spoke with Pt this morning. Pt denies N/V/D/C, states that she ate 100% of breakfast this morning. She feels that she is getting enough food and would not like additional snacks or supplementation at this time. RDN offered Pt education on DM diet, but Pt says that she has had DM diet education previously and would not like additional at this time. Estimated Nutritional Needs unchanged from prior assessment: Energy: 2144-4742 kcal/d (20-25 kcal/kg) Protein: 79-95 gm/d (1-1.2 gm/kg) - preservation of LBM Fluid: 9650-8385 mL/d (1 mL/kcal) or per doctor Nutrition Diagnosis 1. Inadequate oral intake related to medical condition as evidenced by average PO intakes of 56%. (Modified) 2. Unintentional wt loss related to edema/NPO status as evidenced by documented wt loss of 15# x 10 days. (Ongoing) Intervention/RDN Recommendation(s): 1. Continue on CCHO diet as tolerated. Monitor/Evaluate Goal: Intake via PO intakes to meet at least 75% of estimated needs with acceptable tolerance within 3-5 days. Monitor: PO intakes and/or nutrition support tolerance, Labs, GI function, Skin integrity, Weights. F/U in 3-5 days as moderate risk (01/07-)
[2019-01-04 11:55] VITALS: BP 110/59
--- NOTE | 2019-01-04 14:25 | NUR ---
WOUND CARE DONE TO MIDLINE ABD INCISION.DRESG CHANGED, APPLIED NEW ABD PAD AND INFORCED WITH FOAM TAPE,NO NEW DRAINAGE NOTED/ PT TOLERATED WELL. NEW IV TO THE R HAND 22G, TOLERATED WELL. WILL CONTINUE TO MONITOR.
--- NOTE | 2019-01-04 16:04 | NUR ---
PATIENT REFUSED HHN/EZPAP TX, STATES SHE DOESNT NEED IT BECAUSE SHE FEELS FINE. IMPORTANCE OF MEDICATION WAS EXPLAINED AT PT STILL REFUSED.
[2019-01-04 16:42] VITALS: BP 112/69
--- NOTE | 2019-01-04 18:17 | NUR ---
NO ACUTE CHANGES AT THIS TIME. NO ACUTE RESP DISTRESS OR SOB NOTED/ REMAINS ON 2L NC SATING AT 92%. DENIES ANY DISCOMFORT AT THIS TIME. DRESG TO MIDLINE ABD REINFORCED AND INTACT WITH FOAM TAPE. NEW IV TO THE RIGHT HAND/WRIST INTACT/ PATENT/ HEPLOCKED, NO REDNESS OR SWELLING NOTED. WILL ENDORSE TO INCOMING RN.
--- NOTE | 2019-01-04 19:32 | NUR ---
RECEIVED PT FROM DAY SHIFT RN. PT [id number] DENIES HEADAHE OR DIZZINESS. PT BREATHING EVEN AND UNLABORED ON NC 2L/MIN WITH HUMIDIFIER. TELE # 3 SR HR 81. PT DENIES CHEST PAIN OR PRESSURE. ABD DISTENDED, ACTIVE BOWEL SOUNDS. PT DENIES ABD PAIN/N/V. ABD WOUND COVERED WITH DRESSING, CDI. ERYTHEMA UNDER ABD FOLDS AND PERINIUM REGION. ERYTHEMA ON LFA. BLE AND BUE EDEMA NOTED. GENERALIZED WEAKNESS NOTED. IV RIGHT HAND PATENT. PT HAS A COLOSTOMY TO LLQ. KPAD ON PT BACK. NO SIGNS OF ACUTE DISTRESS NOTED. SAFETY PRECAUTIONS IN PLACE. SISTER AT BEDSIDE. WILL CONTINUE TO MONITOR.
[2019-01-04 21:49] VITALS: BP 112/55
--- NOTE | 2019-01-04 22:00 | NUR ---
PT REQUESTING BREATHING TREATMENT, RT PAGED AND AT BEDSIDE.
--- NOTE | 2019-01-05 | NUR ---
PT REFUSED TO TAKE PICTURE OF WOUND, PER PT THEY CHANGED HER DRESSING DURING THE DAY AND DOES NOT WANT TO BE TOUCHED.
--- NOTE | 2019-01-05 01:00 | NUR ---
PT RESTING BREATHING EVEN AND UNLABORED WITH NO SIGSN OF DISTRESS NOTED. CALL BUTTON WITHIN REACH. SAFETY PRECAUTIONS IN PLACE. WILL CONTINUE TO MONITOR.
--- NOTE | 2019-01-05 03:45 | NUR ---
PT REQUESTING A BREATHING TREATMENT. RT PAGED AND AT BEDSIDE.
--- NOTE | 2019-01-05 05:17 | NUR ---
PT SLEPT MOST OF THE NIGHT WITH NO SIGNS OF DISTRESS NOTED. BREATHING EVEN AND UNLABORED, NC 2L/MIN WITH HUMIDIFIER. RT PROTOCOL. IV PATENT. PT ENCURAGED TO TURN AND REPOSITIONED FREQUENTLY. ENCOURAGE PT TO USE IS AT BEDSIDE. MEDICATED PER EMAR. NO SIGNS OF ACUTE DISTRESS NOTED. CALL BUTTON WITHIN REACH. SAFETY PRECAUTIONS IN PLACE. WILL CONTINUE TO MONITOR AND ENDORSE CARE TO DAY SHIFT RN.
[2019-01-05 05:29] VITALS: BP 136/70
--- NOTE | 2019-01-05 06:40 | NUR ---
PT REPORTED HAVING BACK PAIN. MEDICATED PER EMAR. CALL BUTTON WITHIN REACH. WILL CONTINUE TO MONITOR.
[2019-01-05 07:05] LABS: CARBON DIOXIDE 27.8 mmol/L (21-32); CREATININE SERUM 1.3 mg/dL (0.6-1.0); POTASSIUM SERUM 4.7 mmol/L (3.5-5.1)
[2019-01-05 07:10] LABS: BASOPHIL % 1.1 % (0-2); RED CELL DISTRIBUTION WIDTH 13.4 % (11.5-14.5)
--- NOTE | 2019-01-05 07:13 | NUR ---
RECEIVED REPORT FROM KASSIE MACK. PATIENT SLEEPING COMFORTABLY IN BED. NO NEEDS IDENTIFIED. SALINE LOCK TO RT HAND IS PATENT AND INTACT. NO REDNESS OR PAIN. PT ON O2 2L NC. NO DISTRESS NOTED. TELE # [address] NO INDICATION OF CHEST PAIN. COLOSTOMY TO LLQ. ALL QUESTIONS AND CONCERNS ADDRESSED.
[2019-01-05 07:24] LABS: PLATELET COUNT 525 x10^3mcL (130-400)
--- NOTE | 2019-01-05 07:28 | NUR ---
PT RESTING. NO SIGNS OF DISTRESS NOTED. ENDORSED CARE TO DAY SHIFT RN. ALL QUESTIONS ADDRESSED.
[2019-01-05 09:26] VITALS: BP 113/61
--- NOTE | 2019-01-05 09:26 | NUR ---
PT REFUSES TO WEAR BIPAP AND REFUSES CPT. PT TOOK HER EZPAP TREATMENT TODAY BUT ONLY FINISHED 3/4 OF IT AND REFUSED TO FINISH THE REST.
--- NOTE | 2019-01-05 10:50 | NUR ---
IN WITH DR BENJAMIN TO CHANGE DRESSING. DR REMOVED THE IODOFORM PACKING STRIPS AND CLEANSED THE INCISION WITH BETADINE SWABS. PUS NOTED AND REMOVED. SITE REPACKED WITH 1/2 IN X 5 YD IODOFORM PACKING STRIP X 1.5 AND PATIENT SITE WAS COVERED WITH ABD AND FOAM TAPE. PATIENT TOLERATED IT WELL.
[2019-01-05 12:58] VITALS: BP 126/75
[2019-01-05 14:30] VITALS: BP 126/75
--- NOTE | 2019-01-05 16:10 | NUR ---
PHYSICAL THERAPY NOTE ATTEMPTED FOR PHYSICAL THERAPY SCHEDULED VISIT, PATIENT IS TOO SLEEPY FOR OOB ACTIVITIES. TO BE SEEN FOR FOLLOW UP TOMORROW
--- NOTE | 2019-01-05 16:11 | NUR ---
IN TO SEE PATIENT AND CHANGE COLOSTOMY. SITE CLEANED WITH MILD SOAP AND WATER, SUREPREP APPLIED, COLOSTOMY WAS CUT TO 64MM AND APPLIED. 100 ML NOTED IN PREVIOUS BAG.
[2019-01-05 17:56] VITALS: BP 127/78
--- NOTE | 2019-01-05 18:56 | NUR ---
PATIENT SLEEPING COMFORTABLY IN BED. SALINE LOCK TO RT HAND IS PATENT AND INTACT. NO REDNESS OR PAIN. TELE # [address] NO INDICATION OF CHEST PAIN. PT ON O2 2L NC W/ HUMIDIFIER. NO DISTRESS NOTED. WILL ENDORSE ALL CARE TO ONCOMING NURSE.
--- NOTE | 2019-01-05 20:28 | NUR ---
PT RECIEVED AAO REG RESP NO SOB V/S STABLE,IV INFUSING WELL WITH THE SITE PATENT AND INTACT,ABDO SOFT WITH DRESSING INTACT AND HAS COLOSTOMY BAG WITH BROWNISH SECREATION.PT WITH ERYTHEMA TO THE BUTTOCKS AND ABDO FOLDS WITH INTERDRY CLOTH,KEPT CLEAN AND DRY TO TOUCH,V/S STABLE.BED ON THE LOW POSITION AND LOCKED,CALL LIGHT EASY REACHED AND AMDE COMFORTABLE IN BED.CALL LIGHT EASY REACHED AND WILL CONTINUE TO MONITOR.
[2019-01-05 21:32] VITALS: BP 126/84
--- NOTE | 2019-01-06 04:12 | NUR ---
pt resting at this time,will continue to monitor.
--- NOTE | 2019-01-06 04:20 | NUR ---
PT RESTING AT THIS TIME,WILL CONTINUE TO MONITOR.
[2019-01-06 05:51] VITALS: BP 127/82
--- NOTE | 2019-01-06 06:33 | NUR ---
PT HADN A RESTING MIGHT NO CHANGE AT THIS TIME AND WILL CONTINUE TO MONITOR.
--- NOTE | 2019-01-06 07:15 | NUR ---
RECIEVED PT RESTING IN BED WTIH NO C/O PAIN, DISTRESS, OR SOB. A/O X4. TELE #3 CONNECTED TO PT. IN IN RIGHT HAND, INTACT AND PATENT, SALINE LOCKED. NO REDNESS/INFLAMMATION. COLOSTOMY INTACT AND DRAINING BROWN STOOL. SAFETY PRECAUTIONS IN PLACE, CALL LIGHT WITHIN REACH, WILL MONITOR.
[2019-01-06 09:30] VITALS: BP 140/86
[2019-01-06 09:39] LABS: BASOPHIL % 0.8 % (0-2); RED CELL DISTRIBUTION WIDTH 13.5 % (11.5-14.5)
[2019-01-06 09:59] LABS: CALCIUM 9.9 mg/dL (8.5-10.1); CARBON DIOXIDE 34.1 mmol/L (21-32); CREATININE SERUM 1.3 mg/dL (0.6-1.0); POTASSIUM SERUM 4.3 mmol/L (3.5-5.1)
--- NOTE | 2019-01-06 10:00 | NUR ---
PT RESTING COMFORTABLY IN BED WITH NO C/O PAIN, DISTRESS, OR SOB. TOLERATING ALL CARES WELL. SAFETY PRECAUTIONS IN PLACE, CALL LIGHT WITHIN REACH, WILL CONTINUE TO MONITOR.
[2019-01-06 10:11] LABS: PLATELET COUNT 592 x10^3mcL (130-400)
[2019-01-06 13:15] VITALS: BP 97/56
--- NOTE | 2019-01-06 14:38 | NUR ---
PT STABLE WITH NO CHANGES IN CONDITION. DENIES ANY PAIN OR SOB. SAFETY PRECAUTIONS IN PLACE, CALL LIGHT WITHIN REACH, WILL CONTINUE TO MONITOR.
--- NOTE | 2019-01-06 15:22 | NUR ---
PHYSICAL THERAPY DAILY NOTES CO-SIGN All documentation done by the Press And Blow Machine Tender for 01/06/19 has been reviewed. I agree with the documentation. Reviewed/Co-Signed by: Rabia Navarro PT Documentation Done by:ROSEANNE SHAFFER PTA
--- NOTE | 2019-01-06 17:55 | NUR ---
PT C/O 03/03 BACK PAIN, MEDICATED WITH NORCO PER EMAR, WILL REASSESS.
[2019-01-06 17:56] VITALS: BP 106/63
--- NOTE | 2019-01-06 18:16 | NUR ---
PT STABLE AND RESTING IN BED. PAIN MEDICATION GIVEN AT 1755 FOR 9/10 BACK PAIN. NO SOB NOTED. PT A/OX4 WITH NO RODRIGUEZ OR DIZZINESS REPORTED. TELE#3 CONNECTED TO PT. DENIES CP OR PRESSURE. COLOSTOMY IN PLACE AND DRAINING BROWN SOFT STOOL. 60ML DRAINED DURING SHIFT. ABD DRESSING CDI. SALINE LOCK AT RIGHT HAND INTACT AND PATENT WITH NO REDNESS OR INFLAMMATION. SAFETY PRECAUTIONS IN PLACE, CALL LIGHT WITHIN REACH, WILL ENDORSE CARE TO NIGHT NURSE.
--- NOTE | 2019-01-06 20:22 | NUR ---
PT RECIEVED AAO REG RESP NO SOB V/S STABLE,KEPT CLEAN AND DRY TO TOUCH,HL TO THE RT HAND WITH THE SITE PATENT AND INTACT.HOB DRESSING TO THE ABDO CDI AND WITH COLOSTOMY TO BAG DRIANGE INTACT,KEPT CLEAN AND DRY TO TOUCH.PT WITH ERYTHEMA TO THE ABDO FOLDS AND WITH Z GUARD INTACT,HOB,KEPT CLEAN AND DRY TO TOUCH,MADE COMFORTABLE IN BED.CALL LIGHT EASY REACHED AND WILL CONTINUE TO MONITOR.
[2019-01-06 21:45] VITALS: BP 110/60
--- NOTE | 2019-01-06 23:17 | NUR ---
PT SLEEPING SOUNDLY AND WILL CONINYE TO MONITOR.
[2019-01-07 06:02] LABS: BASOPHIL % 0.7 % (0-2)
[2019-01-07 06:17] LABS: CALCIUM 9.8 mg/dL (8.5-10.1); CARBON DIOXIDE 33.7 mmol/L (21-32); CREATININE SERUM 1.1 mg/dL (0.6-1.0); MAGNESIUM 1.7 mg/dL (1.8-2.4); PHOSPHOROUS 4.4 mg/dL (2.5-4.9); POTASSIUM SERUM 4.4 mmol/L (3.5-5.1)
--- NOTE | 2019-01-07 06:21 | NUR ---
PT HAD ARESTING NIGHT NO CHANGE AT THIS TIME,WILL CONTINUE TO MONITOR.
--- NOTE | 2019-01-07 06:31 | NUR ---
WITH MINIMAL ASSISSTANCE PATIENT WAS HELP TO SIT ON THE CHAIR,CLEAN AND WAS MADE COMFORTABLE IN BED WILL CONTINUE TO MONITOR.
--- NOTE | 2019-01-07 08:00 | NUR ---
ALERT AND ORIENTED. HOB SLIGHTLY ELEVATED. NC 2L. NO RESP DISTRESS NOTED. SL TO RT HAND PATENT. TELE # 3 NSR. COMFORTABLE AT THIS TIME. INTERMITTENT PAIN TO ABD OP SITE. DRESSING TO SITE INTACT. REDNESS NOTED UNDER ABD FOLD AND [place] AREA. INCONTINENT OF B & B. COLOSTOMY WITH VERY LOOSE STOOL LIGHT BROWN. CALL LIGHT WITHIN REACH. ON AIR MATTRESS.WEARING SCD'S.
[2019-01-07 08:44] VITALS: BP 105/61
[2019-01-07 12:44] VITALS: BP 120/69
--- NOTE | 2019-01-07 13:38 | NUR ---
P.T. NOTES AFTER MULTIPLE ATTEMPTS PATIENT REFUSED TO BE SEEN BY P.T., STATES BEING FATIGUED AND HAD ALREADY BEEN UP EARLIER THIS MORNING.
[2019-01-07 15:02] LABS: PLATELET COUNT 518 x10^3mcL (130-400)
[2019-01-07 18:08] VITALS: BP 106/53
--- NOTE | 2019-01-07 19:05 | NUR ---
ALERT AND ORIENTED. DR. BENJAMIN IN LATE THIS AFTERNOON TO CHANGE PTS ABD PACKING AND DRESSINGS. REMOVED IODOFORM GAUZE AND REPACKED. CLEANSED WITH BETADINE AND RECOVERED WITH CLEAN ABD PADS X 2. NEW ORDER FOR NORCO PO. CONSENT SIGNED FOR CLOSURE OF OPEN ABD SURGICAL WOUND TOMORROW.
--- NOTE | 2019-01-07 19:43 | NUR ---
PT RECIEVED AAO REG RESP NO SOB V/S STABLE,HL TO THE RT HAND WITH THE SITE PATENT AND INTACT,DRESSING TO THE ABDO INTACT,PT HAS COLOSTOMY TO GRAVITY DRAIN SITE IS INTACT.PT WITH ERYTHEMA TO THE ABDO FOLDS PERINEUM WITH Z GUARD AND INTERDRY CLOTH.HOB,KEPT CLEN AND DRY T TOUCH,CALL LIGHT EASY REACHED,MADE COMFORTABLE IN BED AND WILL CONTINUE TO MONITOR.
[2019-01-07 21:21] VITALS: BP 104/61
--- NOTE | 2019-01-07 23:38 | NUR ---
DR PLATA SAW THE PATIENT AND TO RESUME THE MERREM ANTIBIOTIC FOR A DAY.WILL CONTINUE TO MONITOR.
[2019-01-08 05:28] VITALS: BP 102/57
--- NOTE | 2019-01-08 06:37 | NUR ---
PT HAD ARESTING NIGHT V/S STABLE,PT HAD THE SAGEWIPES CLEAN AND CALL LIGHT MADE CLOSE TO THE APTIENT AND WILL CONTINUE TO MONITOR.
[2019-01-08 06:52] LABS: BASOPHIL % 0.8 % (0-2); RED CELL DISTRIBUTION WIDTH 13.5 % (11.5-14.5)
[2019-01-08 07:12] LABS: CALCIUM 10.2 mg/dL (8.5-10.1); CARBON DIOXIDE 31.7 mmol/L (21-32); CREATININE SERUM 1.1 mg/dL (0.6-1.0); MAGNESIUM 2.5 mg/dL (1.8-2.4); POTASSIUM SERUM 4.4 mmol/L (3.5-5.1)
[2019-01-08 07:22] LABS: PLATELET COUNT 511 x10^3mcL (130-400)
--- NOTE | 2019-01-08 07:30 | NUR ---
ALERT AND ORIENTED. SAYS SHE IS READY TO HAVE HER SURGERY TODAY. CONTINUES ON 02 2L NC. TELE # 3 NSR. DRESSING TO ABD SURGICAL SITE INTACT. NPO FOR CLOSURE OF ABD SURG SITE. REQUIRES ASSIST WITH ALL ADLS R/T OBESITY. ABLE TO REPOSITION SELF IN BED. WEARS SCD'S. HEPARIN HELD THIS AM FOR SURGERY. INTERMITTENT SURG SITE DISCOMFORT. KATIE AND WINSTON HELPFUL. CALLL IGHT WITHIN REACH.
--- NOTE | 2019-01-08 08:14 | NUR ---
LEFT FOR SURGERY. CLOSURE OF OPEN ABD SURGICAL SITE. TELE # 3 LEFT AT BEDSIDE. TELE MONITOR INFORMED.
[2019-01-08 10:20] VITALS: BP 116/47
--- NOTE | 2019-01-08 10:20 | NUR ---
BACK FROM OR S/P CLOSURE TO ABD SURGICAL WOUND. DROWSY AND RESPONSIVE. RETURNED TO NC 2L . DOZING OFF AND ON. DRESSING TO ABD CDI. 94% 2L, BP 116/47, HR 76.
[2019-01-08 12:22] VITALS: BP 81/44
--- NOTE | 2019-01-08 12:24 | NUR ---
REPORTED BY MANAGER FAMILY BP 84/48 HR 72 SAT ON 2L 94 %. ASYMPTOMATIC. WILL MONITOR.
--- NOTE | 2019-01-08 12:25 | NUR ---
SET UP OPERATOR TOOL PLACED [place] TO THERESE PTS SISTER FOR PT. THERESE MADE MENTION OF CONTACTING PTS PLACE OF RESIDENCE TO LET THE FACILITY KNOW WHENPT WOULD BE COMING BACK SO SHE WOULDNT LOSE HER ROOM THERE. [place] TO [facility] IN CASE MANAGEMENT. SHE WILL PASS INFO ON TO [facility].
--- NOTE | 2019-01-08 15:49 | NUR ---
PHYSICAL THERAPY DAILY NOTES CO-SIGN All documentation done by the Marketing Support Specialist for 01/08/19 has been reviewed. I agree with the documentation. Reviewed/Co-Signed by: Rabia Navarro PT Documentation Done by:ROSEANNE SHAFFER PTA FOR 01/07/19
--- NOTE | 2019-01-08 15:51 | NUR ---
PHYSICAL THERAPY DAILY NOTES CO-SIGN All documentation done by the Floriculturist for 01/08/19 has been reviewed. I agree with the documentation. Reviewed/Co-Signed by: Rabia Navarro PT Documentation Done by:ROSEANNE SHAFFER PTA
[2019-01-08 17:39] VITALS: BP 102/55
--- NOTE | 2019-01-08 19:06 | NUR ---
RESTING QUIETLY AND COMFORTABLY. GOOD APPETITE. CONTINUES ON MERREPENEM IV ABX. VSS, AFEBRILE. COLOSTOMY INTACT. DRESSING TO ABD CLOSURE SITE CDI. VOIDED POST SURGERY. 75 CC IN COLOSTOMY FOR THIS SHIFT. WEARING SCD'S. CALL LIGHT WITHIN REACH.
--- NOTE | 2019-01-08 19:30 | NUR ---
PT RECEIVED A/O X4, ABLE TO MAKE NEEDS KNOWN. TELE #3, DENIES ANY CP/PRESSURE. PULSES PALPABLE, EDEMA TO BUE AND BLE. BREATHING IS EVEN AND UNLABORED ON 2L NC WITH HUM, NO RESP DISTRESS NOTED. ABD SOFT AND OBESE, PT DENIES N/V. PT S/P CLOSURE OF ABD SX WOUND THIS AM, DRESSING IN PLACE, CDI. URINARY INCONTINENCE. GENERALIZED WEAKNESS. ERYTHEMA NOTED TO BUTTOCKS, PERINEUM, BUE. ERYTHEMA NOTED TO LFA, ABD FOLDS. SMALL ABRASION TO LFA, JOANNE. PT DENIES HAVING ANY PAIN AT THIS TIME. SL TO RH, PATENT AND INTACT, SITE WNL. NO ACUTE DISTRESS NOTED. BED IN LOWEST SETTING, SIDE RAILS UP X2, CALL LIGHT WITHIN REACH. WILL CONT TO MONITOR.
[2019-01-08 20:49] VITALS: BP 114/59
--- NOTE | 2019-01-08 22:15 | NUR ---
PT C/O 01/31 ABD PAIN, PRN NORCO GIVEN ORDERED. NO ACUTE DISTRESS NOTED. CALL LIGHT WITHIN REACH. WILL CONT TO MONITOR.
[2019-01-09 05:34] VITALS: BP 112/59
[2019-01-09 06:21] LABS: BASOPHIL % 0.5 % (0-2); RED CELL DISTRIBUTION WIDTH 13.3 % (11.5-14.5)
--- NOTE | 2019-01-09 06:50 | NUR ---
PT SLEPT WELL THROUGHOUT THE EVENING. BREATHING IS EVEN AND UNLABORED 2L NC, NO RESP DISTRESS NOTED. PT DENIES HAVING ANY PAIN AT THIS TIME. ABD DSRG IN PLACE, CDI. COLOSTOMY EMPTIED-50 ML, LOOSE BROWN OUTPUT. IV TO RFA, PATENT AND INTACT, SITE WNL. NO ACUTE CHANGES ENCOUNTERED DURING SHIFT. ALL NEEDS MET AND ANTICIPATED. CALL LIGHT WITHIN REACH. WILL ENDORSE CARE TO AM NURSE.
[2019-01-09 06:59] LABS: CALCIUM 9.4 mg/dL (8.5-10.1); CARBON DIOXIDE 30.2 mmol/L (21-32); CREATININE SERUM 1.1 mg/dL (0.6-1.0); MAGNESIUM 2.1 mg/dL (1.8-2.4); POTASSIUM SERUM 4.7 mmol/L (3.5-5.1)
--- NOTE | 2019-01-09 07:35 | NUR ---
PT IN NO ACUTE DISTRESS. CONTINUITY OF CARE ENDORSED TO TK MACK. ALL QUESTIONS AND CONCERNS ADDRESSED.
--- NOTE | 2019-01-09 07:50 | NUR ---
PATIENT RESTING IN BED, NO ACUTE DISTRESS NOTED. PATIENT DENIES SOB, ON 2L NC. TELE MONITOR IN PLACE, PATIENT DENIES CHEST PAIN. EDEMA NOTED TO BUE& BLE, EDUCATED PATIENT TO MAINTAIN EXTREMITIES ELEVATED. COLOSTOMY NOTED TO LLQ, BROWN STOOLS, STOMA PINK. GENERALIZED WEAKNESS NOTED, WILL ASSIST WITH REPOSITIONING NEEDED. SURGICAL INCISION NOTED ON ABDOMEN, DRESSING IS CDI, NO DRAINAGE NOTED. IV TO RFA CDI & PATENT, NO S/S OF INFILTRATION. CALL LIGHT WITHIN REACH, BED IN LOW POSITION, WILL CONTINUE TO MONITOR FOR CHANGES.
--- NOTE | 2019-01-09 08:23 | NUR ---
PATIENT C/O ABDOMINAL PAIN 03/03, MEDICATED PATIENT WITH NORCO PER PROTOCOL (SEE EMAR). REPOSITIONED PATIENT FOR COMFORT & EDUCATED PATIENT ON PAIN MANAGEMENT. WILL CONTINUE TO MONITOR & MANAGED PATIENT PAIN, CALL LIGHT WITHIN REACH.
[2019-01-09 08:29] LABS: PLATELET COUNT 535 x10^3mcL (130-400)
[2019-01-09 09:26] VITALS: BP 117/71
--- NOTE | 2019-01-09 11:30 | NUR ---
PATIENT COLOSTOMY APPEARRED TO BE LEAKING BROWN STOOLS, WHEN ASKED WHEN HER COLOSTOMY WAS LAST CHANGED PATIENT COULD NOT REMEMBER. CHANGED PATIENTS COLOSTOMY BAG AT THIS TIME, PINK NOTED AROUND STOMA. WILL CONTINUE TO MONITOR FOR CHANGES, CALL LIGHT WITHIN REACH, BED IN LOW POSITION.
[2019-01-09 12:32] VITALS: BP 112/53
--- NOTE | 2019-01-09 15:21 | NUR ---
PHYSICAL THERAPY DAILY NOTES CO-SIGN All documentation done by the Emergency Response Officer for 01/09/19 has been reviewed. I agree with the documentation. Reviewed/Co-Signed by: Rabia Navarro PT Documentation Done by:ROSEANNE SHAFFER PTA
--- NOTE | 2019-01-09 16:12 | NUR ---
PATIENT IS SLEEPING IN BED, NO ACUTE DISTRESS NOTED AT THIS TIME. PATIENT DENIES PAIN. CALL LIGHT WITHIN REACH, BED IN LOW POSITION. WILL CONTINUE TO MONITOR.
--- NOTE | 2019-01-09 16:45 | NUR ---
Follow-up Nutrition Assessment Dx: Perforated bowel Labs: (01/09) Na 136, K 4.7, BG 108H, Cr 1.1H, WBC 11.7H, H/H 9.1L/27L Meds: D10%, D50%, Elavil, Humulin, Lantus, Lipitor, Merrem, Miralax, [place], Protonix, Reglan, Senokot, Toradol, Tylenol, Zofran Diet: CCHO PO intake: (01/08) L: 50% (01/09) B/D: 75% L: 60% Weights: (01/09) 142.6 kg Skin: Sx abdominal incision, colostomy to LLQ Harvey: 15 Edema: Present to BUE/BLE Last BM: x 1 (01/09) 65 mL brown liquid stool with colostomy to LLQ Per provider progress notes, pt. noted with c/o abdominal pain s/p surgical site closure to abdominal sx wound. Pt. continues with antibiotics treatment. Endorses good appetite and no reports of GI distress associated with current diet order. Estimated Nutritional Needs unchanged from previous assessment. Energy: 3376-9490 kcal (20-25 kcal/kg-maintenance) Protein: 79-95 g (1.0-1.2 g/kg-maintenance and prevention of lean body mass losses) Fluid: 6342-5979 mL (1 mL/kcal or per MD order-for fluid balance and maintenance) Nutrition Diagnosis 1. Inadequate PO intake r/t medical condition AEB average PO intake 56% (improved) 2. Unintentional weight loss r/t edema/NPO status AEB documented weight loss 15# x 10 days (resolved) Intervention/RD recommendations 1. Continue CCHO diet as ordered and as tolerated. Monitor/Evaluate Previous goal: PO intake at least 75% of estimated needs (not met) Goal: PO intake at least 75% of estimated needs Monitor: PO intake, Labs, GI function, skin integrity, weights F/U in 3-5 days as moderate risk (01/12-01/14)
--- NOTE | 2019-01-09 16:46 | NUR ---
Intervention/RD recommendations 1. Continue CCHO diet as ordered and as tolerated.
[2019-01-09 17:51] VITALS: BP 114/63
--- NOTE | 2019-01-09 17:55 | NUR ---
PATIENT RESTING IN BED, EATING DINNER. NO ACUTE CHANGES THROUGH OUT SHIFT, PATIENT IS STABLE. TELE MONITOR IN PLACE. PATIENT DENIES PAIN. PATIENT ON 2L NC, DENIES SOB. COLOSTOMY TO LLQ CLEAN DRY & INTACT. EXTREMITIES X4 MAINTAINED ELEVATED. ABDOMINAL DRESSING CDI, NO DRAINAGE NOTED. IV TO RFA SALINE LOCK, CDI& PATENT, NO S/S OF INFILTRATION. CALL LIGHT WITHIN REACH, BED IN LOW POSITION, WILL ENDORSE REPORT TO NIGHT RN.
--- NOTE | 2019-01-09 19:10 | NUR ---
PT RECEIVED A/O X4, ABLE TO MAKE NEEDS KNOWN. TELE #3, DENIES ANY CP/PRESSURE. PULSES PALPABLE, EDEMA TO BUE AND BLE. BREATHING IS EVEN AND UNLABORED ON 2L NC WITH HUM, NO RESP DISTRESS NOTED. ABD SOFT AND OBESE, PT DENIES N/V. PT S/P CLOSURE OF ABD SX WOUND ON 01/08, ABD DRESSING IN PLACE, CDI. URINARY INCONTINENCE. GENERALIZED WEAKNESS. ERYTHEMA NOTED TO BUTTOCKS, PERINEUM, BUE. ERYTHEMA NOTED TO LFA, ABD FOLDS. SMALL ABRASION TO LFA, JOANNE. PT DENIES HAVING ANY PAIN AT THIS TIME. SL TO RFA, PATENT AND INTACT, SITE WNL. NO ACUTE DISTRESS NOTED. BED IN LOWEST SETTING, SIDE RAILS UP X2, CALL LIGHT WITHIN REACH. WILL CONT TO MONITOR.
[2019-01-09 20:32] VITALS: BP 101/50
--- NOTE | 2019-01-10 01:26 | NUR ---
PT C/O 01/31 ABD PAIN, PRN NORCO GIVEN ORDERED. NO ACUTE DISTRESS NOTED. CALL LIGHT WITHIN REACH. WILL CONT TO MONITOR.
--- NOTE | 2019-01-10 05:20 | NUR ---
PT'S 02 SAT-85%. BREATHING IS EVEN AND UNLABORED ON 2L NC, PT REPORTS MILD SOB. RT-MARIA ELENA CALLED AND AT BEDSIDE. PT OFFERED BREATHING TX, PT REFUSED. RT INCREASED 02 TO 3L NC, 02 SAT-95% AND HOB ELEVATED. NO RESP DISTRESS NOTED. CALL LIGHT WITHIN REACH. WILL CONT TO MONITOR.
[2019-01-10 05:43] VITALS: BP 118/71
--- NOTE | 2019-01-10 07:08 | NUR ---
PT SLEPT WELL THROUGHOUT THE EVENING. BREATHING IS EVEN AND UNLABORED, NO RESP DISTRESS NOTED. PT DENIES HAVING ANY PAIN AT THIS TIME. IV TO RFA, PATENT AND INTACT, SITE WNL. NO ACUTE CHANGES ENCOUNTERED DURING SHIFT. ALL NEEDS MET AND ANTICIPATED. CALL LIGHT WITHIN REACH. CONTINUITY OF CARE ENDORSED TO TK MACK, ALL QUESTION AND CONCERNS ADDRESSED.
--- NOTE | 2019-01-10 07:50 | NUR ---
PATIENT SLEEPING IN BED, AROUSABLE. TELE MONITOR IN PLACE. EDEMA NOTED TO BUE/BLE, EDUCATED PATIENT TO MAINTAIN ETREMITIES X4 ELEVATED. LUNG SOUNDS DIMINISHED TO BILATERAL LOWER BASES, PATIENT DENIES SOB, ON 4L NC WITH HUMIDIFIER. COLOSTOMY BAG DRAINING TO GRAVITY, BROWN LOOSE STOOLS NOTED. PATIENT ON STRICT I&0S, RESTRICTED TO 1200ML/DAY. GENERALIAED WEAKNESS NOTED, PATIENT ABLE TO ASSIST WITH REPOSITIONING. ABDOMINAL DRESSING CDI, NO DRAINAGE NOTED. IV TO RFA SALINE LOCK, CDI & PATENT, NO S/S OF INFILTRATION. CALL LIGHT WITHIN REACH, BED IN LOW POSITION, WILL CONTINUE TO MONITOR FOR CHANGES.
[2019-01-10 07:52] LABS: BASOPHIL % 0.5 % (0-2); RED CELL DISTRIBUTION WIDTH 13.4 % (11.5-14.5)
[2019-01-10 07:56] LABS: CALCIUM 9.2 mg/dL (8.5-10.1); CARBON DIOXIDE 31.4 mmol/L (21-32); CHLORIDE SERUM 97 mmol/L (98-107); GFR1 > 60 mL/min; GLUCOSE SERUM 111 mg/dL (74-106); POTASSIUM SERUM 4.4 mmol/L (3.5-5.1); SODIUM SERUM 134 mmol/L (136-145)
[2019-01-10 07:58] LABS: PLATELET COUNT 555 x10^3mcL (130-400)
--- NOTE | 2019-01-10 08:26 | NUR ---
RESPIRATORY THERAPY AT BEDSIDE.
[2019-01-10 09:39] VITALS: BP 128/72
--- NOTE | 2019-01-10 10:00 | NUR ---
AMUSEMENT PARK RIDE MECHANIC SY AWARE PATIENTS WBC INCREASED FROM 11.7 TO 14.5. NO FURTHER ORDERS AT THIS TIME, WILL CONTIUNT TO MONITOR PATIENT. CALL LIGHT WITHIN REACH, BED IN LOW POSITION.
--- NOTE | 2019-01-10 11:00 | NUR ---
JESSI DAN AWARE PATIENT WAS C/O ITCHINESS ON HER NECK AND SIDE, REDNESS WAS NOTED. JESSI DAN WILL PLACE ORDERS FOR BENADRYL, WILL CARRY OUT ORDERS WHEN PLACED BY THE FRAME CLEANER, AND CONTINUE TO MONITOR.
--- NOTE | 2019-01-10 12:39 | NUR ---
Kang NOTES AFTER MULTIPLE ATTEMPTS PATIENT REFUSED TO BE SEEN BY Kang, EDUCATED HER ON IMPORTANCE OF PHYSICAL MOBILITY, CONTINUES TO REFUSE, STATES FEELING TIRED.
[2019-01-10 12:40] VITALS: BP 103/53
[2019-01-10 15:14] VITALS: BP 103/53
--- NOTE | 2019-01-10 16:45 | NUR ---
PATIENT COLOSTOMY WAS LEAKING, BROWN LOOSE STOOLS NOTED, 30ML OUTPUT. MARTINA COTTO CHANGED THE COLOSTOMY AT THIS TIME. WILL CONTINUE TO MONITOR PATIENT.
[2019-01-10 17:10] VITALS: BP 107/58
--- NOTE | 2019-01-10 17:43 | NUR ---
PATIENT WAS C/O OF ABDOMINAL PAIN 01/31, MEDICATED PATIENT WITH TORDOL PER PROTOCAL (SEE EMAR), REPOSITION PATIENT FOR COMFORT. EDUCATED PATIENT ON PAIN MANAGEMENT. NO ACUTE CHANGES NOTED THROUGH OUT SHIFT, PATIENT IS STABLE. TELE MONITOR IN PLACE. PATIENT DENIES SOB, ON 3L NC. COLOSTOMY DRAINING TO GRAVITY. ABDOMINAL DRESSING CDI, NO DRAINAGE NOTED. IV TO RFA IS SALINE LOCK, NO S/S OF INFILTRATION. CALL LIGHT WITHIN REACH, BED IN LOW POSITION, WILL ENDORSE REPORT TO NIGHT NURSE.
--- NOTE | 2019-01-10 19:30 | NUR ---
RECIEVED PT LYING IN BED SLEEPING WITH NO ACUTE DISTRESS AT THIS TIME, PT EASILY AROUSABLE TO VERBAL STIMULI, PT IS A/O X 4 NO COMPLAINTS OF RODRIGUEZ OR DIZZINESS, ASSESSMENT PERFORMED, ALL NEEDS ATTENDED TO, SAFETY PRECAUTIONS IN PLACE, WILL CONTINUE TO MONITOR
[2019-01-10 20:27] VITALS: BP 94/54
--- NOTE | 2019-01-10 20:37 | NUR ---
PATIENT REFUSED HHN TREATMENT SAID THAT SHE WANTED PAIN MEDS AND TO SLEEP. PT STATED THAT HE BREATHING IS JUST FINE AND WANTS TO SLEEP.
--- NOTE | 2019-01-10 21:49 | NUR ---
PT COMPLAINING OF ITCHING NOT COMPLETELY RELIEVED BY PO BENADRYL, CONTACTED DR HIGHTOWER AND HE ORDERED IV, ADMINISTERED PER ORDER
--- NOTE | 2019-01-11 00:10 | NUR ---
PT SLEEPING IN BED WITH NO ACUTE DISTRESS NOTED AT THIS TIME, RESPIRATIOPNS EVEN AND UNLABORED, SAFETY PRECAUTIONS IN PLACE, WILL CONTINUE TO MONITOR.
--- NOTE | 2019-01-11 03:25 | NUR ---
PT SLEPING IN BED WITH NO RESPIRATORY DISTRESS NOTED AT THIS TIME, RESPIRATIONS EVNE AND UNLABORED, SAFETY PRECAUTIONS IN PLACE, WILL CONTINUE TO MONITOR.
[2019-01-11 06:17] VITALS: BP 99/50
--- NOTE | 2019-01-11 06:20 | NUR ---
PT SLEPT THROUGH MOST OF THE NIGHT, THE PT HAD SOME ITCHINESS FROM THAT WAS TREATED WITH ONE TIME DOSE OF BENADRYL IV PER ORDER, PT DENIED PAIN THROPUGH NIGHT, PT IS STABLE AND COMFORTABLE SAFETY PRECAUTIONS MAINTAINED, WILL CONTINUE TO MONITOR AND ENDORSE CARE
--- NOTE | 2019-01-11 07:10 | NUR ---
RECIEVED PT ASLEPP IN BED WITH NO S/S OF PAIN, DISTRESS, OR SOB. PT CONNECTED TO TELE MONITOR#3. PT ON 2LPM O2 VIA NC. COLOSTOMY INTACT AND DRAINING BROWN STOOL. LAST CHANGED 01/10/19. PT ON STRICT I/O, 480 INTAKE ON NOC SHIFT (1200 DAILY). ABD DRESSING CDI. SALINE LOCK INTACT AND PATENT TO LFA, NO REDNESS OR INFLAMMATION NOTED. SAFETY PRECAUTIONS IN PLACE, CALL LIGHT WITHIN REACH, WILL MONITOR.
[2019-01-11 07:13] LABS: BASOPHIL % 0.5 % (0-2); RED CELL DISTRIBUTION WIDTH 13.6 % (11.5-14.5)
[2019-01-11 07:20] LABS: CALCIUM 9.2 mg/dL (8.5-10.1); CARBON DIOXIDE 30.4 mmol/L (21-32); CHLORIDE SERUM 97 mmol/L (98-107); GFR1 > 60 mL/min; GLUCOSE SERUM 94 mg/dL (74-106); POTASSIUM SERUM 4.4 mmol/L (3.5-5.1); SODIUM SERUM 135 mmol/L (136-145)
[2019-01-11 07:40] LABS: PLATELET COUNT 574 x10^3mcL (130-400)
--- NOTE | 2019-01-11 08:32 | NUR ---
PT C/O SLIGHT GEN ITCHYNESS, MEDICATED WITH BENYDRYL PER EMAR, WILL REASSESS.
[2019-01-11 09:34] VITALS: BP 108/58
--- NOTE | 2019-01-11 11:11 | NUR ---
SPOKE WITH JESSI DAN REGARDING PT RASH, SHE STATED SHE WILL COME UP TO ASSESS PT. WILL MONITOR.
--- NOTE | 2019-01-11 12:45 | NUR ---
RECIEVED NEW ORDER FOR SOLU-MEDROL FOR PT RASH. ORDER FOLLOWED THOUGH, WILL MONITOR.
[2019-01-11 14:02] VITALS: BP 109/63
[2019-01-11 17:50] VITALS: BP 115/72
--- NOTE | 2019-01-11 17:58 | NUR ---
PT STABLE AT THIS TIME, RESTING IN BED WITH NO C/O PAIN, DISTRESS, OR SOB. IV INTACT AND PATENT WITH NO REDNESS OR INFLAMMATION. COLOSTOMY INTACT AND DRAINING. ABD DRESSING CDI. SAFETY PRECAUTIONS IN PLACE, CALL LIGHT WITHIN REACH, WILL ENDORSE CARE TO NIGHT NURSE.
--- NOTE | 2019-01-11 18:43 | NUR ---
COLOSTOMY BAG CLEANED, PREPPED, AND A CHANGED. CDI AT THIS TIME. ABDOMINAL DRESSING CHANGED PARTIALLY AT BOTTOM OF DRESSING D/T SOILING. ABD DRESSING NOW CDI. PT TOLERATED DRESSING AND COLOSTOMY CHANGE WELL. NO DISTRESS NOTED.
--- NOTE | 2019-01-11 19:20 | NUR ---
RECIEVED PT SLEEPING IN BED WITH NO ACUTE DISTRESS, PT EASILY AROUSABLE TO VERBAL STIMULI, ASSESSMENT PERFORMED AT THIS TIME, PT DENIES SOB AT THIS TIME, TELE 3 NSR, IV TO THE LFA SALINE LOCKED SAFETY PRECAUTIONS IN PLACE, WILL CONTINUE TO MONITOR.
[2019-01-11 21:06] VITALS: BP 117/79
--- NOTE | 2019-01-11 21:40 | NUR ---
PT SLEEPING IN BED EASILY AROUSABLE TO VERBAL STIMULI, PT DENIES PAIN OR SOB AT THIS TIME, SAFETY PRECAUTIONS IN PLACE, WILL CONTINUE TO MONITOR
--- NOTE | 2019-01-12 00:30 | NUR ---
PT SLEEPING IN BED WITH NO ACUTE REPIRATORY DISTRESS, REPIRATIONS EVEN AND UNLABORED, SAFETY PRECAUTIONS IN PLACE, WILL CONTINUE TO MONITOR
--- NOTE | 2019-01-12 03:09 | NUR ---
PT RESTING IN BED WITH EYES CLOSED, NO ACUTE DISTRESS NOTED, REPIRATIONS EVEN AND UNLABORED, SAFETY PRECAUTIONS IN PLACE, WILL CONTINUE TO MONITOR
[2019-01-12 05:34] VITALS: BP 135/69
--- NOTE | 2019-01-12 06:00 | NUR ---
PT RESTED WITH EYES CLOSED THROUGH MAJORITY OF SHIFT BUT WAS AROUSABLE TO VERBAL STIMULI, PT DENIED PAIN OR SOB THROUGH SHIFT, ALL NEEDS WERE ATTENDED TO WILL CONTIUE TO MONITOR AND ENDORSE CARE TO ONCOMING RN
[2019-01-12 06:48] LABS: CALCIUM 9.2 mg/dL (8.5-10.1); CHLORIDE SERUM 98 mmol/L (98-107); CREATININE SERUM 0.9 mg/dL (0.6-1.0); GFR1 > 60 mL/min; GLUCOSE SERUM 118 mg/dL (74-106); MAGNESIUM 1.7 mg/dL (1.8-2.4); POTASSIUM SERUM 4.3 mmol/L (3.5-5.1); SODIUM SERUM 137 mmol/L (136-145)
--- NOTE | 2019-01-12 07:30 | NUR ---
PT IS AAOX4. RESP EVEN, SHALLOW, UNLABORED. ON 02 N/C AT 2LPM. NO COUGH OR SOB NOTED. TELE [address] READING NSR. PERIPHERAL PULSES PALPABLE. NO EDEMA NOTED. IV CATH N/S LOCKED TO [facility]. SITE WNL. PT HAS SX ABDOMINAL WOUND CLOSED WITH SUTURES COVERED WITH CDI DRESSING. PT HAS OSTOMY WITH OSTOMY BAG IN PLACE OSTOMY IS DRAINING DARK BROWN LOOSE STOOL. SITE WNL. PT DENIES PAIN AND DISCOMFORT AT THIS TIME. CALL LIGHT WITHIN REACH. BED IN LOWEST POSITION.
[2019-01-12 08:25] LABS: BASOPHIL % 0.5 % (0-2); RED CELL DISTRIBUTION WIDTH 13.3 % (11.5-14.5)
[2019-01-12 08:29] LABS: PLATELET COUNT 617 x10^3mcL (130-400)
[2019-01-12 09:02] VITALS: BP 114/69
--- NOTE | 2019-01-12 09:10 | NUR ---
PT RECEIVING P/T TRAINING AT THIS TIME. PT UP OUT OF BED AMBULATING WITH FWW FULL WEIGHT BEARING WITH P/T ASSISTING.
--- NOTE | 2019-01-12 09:39 | NUR ---
PT FINISHED BREATHING TX WITH R/T. DUE MEDS GIVEN AND TOLERATED WELL. EXTRA FLUIDS ENCOURAGED AND GIVEN. TYLENOL 650MG PO GIVEN FOR ACHING ABDOMINAL PAIN 10/31. RESP EVEN AND UNLABORED. CALL LIGHT WITHIN REACH. FALL PROTOCOL MAINTAINED.
--- NOTE | 2019-01-12 10:00 | NUR ---
PT RECEIVED PT TRAINING AND WAS ABLE TO AMBULATED TO DOOR AND BACK WITH FWW AND ASSIST.
--- NOTE | 2019-01-12 12:15 | NUR ---
DUE MED GIVEN AND TOLERATED WELL. PT EDUCATED ON DIET AND EATING FOODS TO INCREASE HEALING. PT VERBALIZED UNDERSTANDING. CALL LIGHT WITHIN REACH.
[2019-01-12 13:28] VITALS: BP 108/71
--- NOTE | 2019-01-12 15:34 | NUR ---
WOUND VAC ORDERED REQUEST FOR TODAY'S DELIVERY FROM [facility] [phone] REFERENCE #[id number]
--- NOTE | 2019-01-12 16:15 | NUR ---
PHYSICAL THERAPY DAILY NOTES CO-SIGN All documentation done by the Operations Support Analyst for 01/12/19 has been reviewed. I agree with the documentation. Reviewed/Co-Signed by: Rabia Navarro PT Documentation Done by:ROSEANNE SHAFFER PTA
[2019-01-12 16:43] VITALS: BP 100/43
--- NOTE | 2019-01-12 16:58 | NUR ---
DUE MED GIVEN AND TOLERATED WELL. EXTRA FLUIDS ENCOURAGED. CALL LIGHT WITHIN REACH.
--- NOTE | 2019-01-12 18:11 | NUR ---
RECEIVED ORDER FROM SY VICTORIA NP FOR MENON PLACEMENT. MENON CATH 16FR PLACED. STAT LOCK TO R THIGH. PT TOLERATED PROCEDURE WELL. PT GIVEN BED BATH AND HYDROGUARD APPLIED TO PERINEAL AREA AND BUTTOCKS. OSTOMY BAG REMOVED. AREA CLEANED WITH N/S AND PATTED DRY. SKIN PREP APPLIED AND NEW OSTOMY BAG APPLIED. DRESSING REMOVED FROM ABDOMINAL WOUND. NEW ABDOMINAL PAD AND TAPE APPLIED. PT TOLERATED PROCEDURES WELL. DENIES PAIN AT THIS TIME. BED IN LOW POSITION. CALL LIGHT WITHIN REACH.
--- NOTE | 2019-01-12 18:51 | NUR ---
PT IS AAOX4. RESP EVEN AND UNLABORED. DENIES PAIN AT THIS TIME. ABDOMINAL INCISIION SITE COVERED WITH CDI. OSTOMY WITH OSTOMY BAG IN PLACE. MENON CATH IN PLACE WITH STAT LOCK TO R THIGH, DRAINING LIGHT YELLOW URINE TO GRAVITY. IV CATH TO LFA PATENT, SITE WNL. WILL ENDORSE ALL CARE TO NOC MARTINA.
--- NOTE | 2019-01-12 19:40 | NUR ---
PT SEEN, ASLEEP BUT EASILY AROUSABLE, ALERT AND ORIENTED X 3 WITH PERIODS OF FORGETFUL WITH HX OF MENTALLY DELAYED, BREATHING EVEN AND UNLABORED, LUNG SOUNDS DIMINISHED, ON O2 2L VIA NC WITH NO RESP DISTRESS NOTED, ON TELE#3 NSR, DENIES CHEST PAIN, SL TO LFA, PULSES PALPABLE, EDEMA NOTED TO BLE, GENERALIZED WEAKNESS, ABD OBESE WITH ACTIVE BS, NO BM AT THIS TIME, LEFT SIDE OF ABD COLOSTOMY, MENON VIA GRAVITY DRAINING NIKKI COLOR URINE, MIDLINE ABD WITH INCISION DRESSING IN PLACE, ABD BINDER IN PLACE, GENERALIZED BODY WITH RASHES, ERYTHEMA TO BUTTOCKS AREA, INTERDRY TO LEFT AND RIGHT GROIN AREA, NO DISTRESS NOTED, WILL KEEP TO MONITOR.
[2019-01-12 21:23] VITALS: BP 111/59
--- NOTE | 2019-01-12 22:40 | NUR ---
DR PLATA IS HERE, UPDATES GIVEN, NO NEW ORDER RECEIVED AT THIS TIME.
--- NOTE | 2019-01-13 04:00 | NUR ---
PT'S COLOSOTMY IS LEAKING, NEW COLOSTOMY BAG APPLIED AND PT HAD LARGE LOOSE BM, MIDLINE ABD DRESSING CHANGED, WILL CONTINUE TO MONITOR.
[2019-01-13 05:52] VITALS: BP 118/69
[2019-01-13 06:06] LABS: BASOPHIL % 0.7 % (0-2); RED CELL DISTRIBUTION WIDTH 13.3 % (11.5-14.5)
[2019-01-13 06:20] LABS: CALCIUM 9.3 mg/dL (8.5-10.1); CARBON DIOXIDE 35.7 mmol/L (21-32); CHLORIDE SERUM 99 mmol/L (98-107); GFR1 > 60 mL/min; GLUCOSE SERUM 117 mg/dL (74-106); POTASSIUM SERUM 4.1 mmol/L (3.5-5.1); SODIUM SERUM 138 mmol/L (136-145)
--- NOTE | 2019-01-13 06:26 | NUR ---
PT ASLEEP BUT EASILY AROUSABLE, SLEPT MOST OF NIGHT, SL TO LFA, MENON CARE GIVEN, MORNING BLOOD SUGAR- 120 MG/DL WITH NO RISS, CONDITION NO CHANGE, NO DISTRESS NOTED, WILL KEEP TO MONITOR.
[2019-01-13 07:28] LABS: PLATELET COUNT 663 x10^3mcL (130-400)
--- NOTE | 2019-01-13 07:40 | NUR ---
RECEIVED PT FROM SEO TEAM LEAD. PT AWAKE, ALERT A/OX3. PT STATES SHE "FEELS LIKE A 3 YEAR OLD". PT DENIES PAIN BUT STATES SHE IS REALLY HOT. AIR TURNED ON FOR COMFORT. PT NOTED TO HAVE RASH THROUGHOUT BODY WHICH ITS "ITCHY". PT ON TELE 3, DENIES CHEST PAIN. PT ON 2LNC WITH NO RESP DISTRESS NOTED. IV ACCESS LFA C/D/I. PERIPHERAL PULSES PALPABLE, EDEMA NOTED. PT NOTED TO HAVE LEFT COLOSTOMY LEAKING AT THIS TIME. WILL CHANGE. PT NOTED TO HAVE MENON CATHETER WITH CLEAR YELLOW URINE DRAINING AT THIS TIME. PT NOTED TO HAVE GENERALIZED WEAKNESS. BANDAGE TO ABDOMEN C/D/I AT THIS TIME. SAFETY MEASURES IN PLACE, BED LOW AND LOCKED. CALL LIGHT WITHIN REACH.
[2019-01-13 09:07] VITALS: BP 101/61
--- NOTE | 2019-01-13 10:15 | NUR ---
WOUND CARE NURSE AT BEDSIDE. WOUND VAC APPLIED TO ABDOMEN. PT TOLERATED PROCEDURE WELL. TORADOL ADMINISTERED PRN FOR PAIN (SEE EMAR). COLOSTOMY BAG CHANGED.
--- NOTE | 2019-01-13 11:00 | NUR ---
WOUND CARE RE- EVALUATION NOTE: -INTERTRIGO TO LOWER ABDOMINAL WALL IMPROVING WITH CURRENT TREATMENT -MID ABDOMINAL SURGICAL WOUND Z SHAPE WITH [address] AND SECURED, [id number] WOUND BED RED WITH SMALL AMOUNT SEROSANGINOUS DRAINAGE, DEEPEST DEPTH 6 CM TO LOWER ABD. SUPRAPUBIC AREA. SANJUANA-WOUND SKIN INTACT. -LLQ ABD. COLOSTOMY 2 INCHES IN OVAL SHAPE WITH RETRACTED STOMA, FUNCTIONING WITH SEMI LIQUID STOOL OUTPUT, SANJUANA-STOMA SKIN REDNESS. JESSI MARX NOTIFY AND SHE SAID SHE WILL FOLLOW UP WITH DR. BENJAMIN RECOMMENDATION: -APPLY ANTIFUNGAL CREAM TO INTERTRIGO TO LOWER ABDOMINAL QD AND LEAVE IT OPEN TO AIR -[facility] VAC THERAPY TO MID ABDOMINAL SURGICAL WOUND, FOLLOW V.A.C THERAPY CLINICAL GUIDELINES. SET THERAPY ON CONTINOUS THERAPY AT 125 MMHG. CHANGE DRESSING Q72 HOURS AND PRN IS DISLOGGED. -COLOSYOMY CARE PER PROTOCOL AND DURING OSTOMY CARE PLEASE FOLLOW INSTRUCTION BELOW: -CHECK SANJUANA STOMA SKIN CONDITION EVERY TIME WAFER CHANGED Q 5 DAYS AND PRN IF DISPLACED-APPLY SKIN PREP TO SANJUANA-OSTOMY SKIN -APPLY STOMA ADHESIVE PAST OR MARQUES RING SHAPE TO 2" OVAL SHAPE TO THE WAFER, NEAR THE EDGE OF STOMA SKIN AREA, PAT FLAT. APPLY SKIN PREP TO SANJUANA-STOMA SKIN -USE 1 PIECE LAMBERTO OSTOMY DEVICES WITH 2" (51MM), CUT TO FIT THE STOMA EXACTLY IN OVAL SHAPE, NO SKIN SHOWING. -EMPTY AND RINSE POUCH WHEN IT IS 1/3 FULL. CHANGE POUCH Q5 DAYS AND PRN IF LEAK PRIMARY RN CONTINUE TEACHING COLOSTOMY CARE.
--- NOTE | 2019-01-13 12:00 | NUR ---
PT RESTING AT THIS TIME WITH NO ACUTE DISTRESS OR DICOMFORT NOTED. ALL NEEDS MET AT THIS TIME.
[2019-01-13 13:25] VITALS: BP 107/65
--- NOTE | 2019-01-13 14:10 | NUR ---
1. Recommend Freddy BID and vitamin C for wound healing. 2. Recommend continuing CCHO diet.
--- NOTE | 2019-01-13 14:10 | NUR ---
Follow-up Nutrition Assessment: 212 T/B LIZABETH SHEN HR FU Dx: Perforated bowel PMHx: DM, COPD with LUC, breast cancer in remission Labs: (01/13) BG 117H, BUN 20H, WBC 14.0H Meds: D50%, D 10%, humulin, lantus, Lipitor, miralax, reglan, Zofran, heparin Diet: CCHO PO Intake: (01/10) lunch 40%, breakfast 30%, (01/09) lunch 10%, breakfast 0% Weights in kg: (12/31) 151.9 kg, (01/02) 152 kg, (01/09) 142 kg, (01/10) 133.5 kg, (01/13) Bed scale- unable to access as some medical equipment's were on the bed. Skin: Abd incision, R abd wound, generalized body with rashes Harvey: 14 I/Os: (01/12) 850/ 50 (800) Edema: BLE edema GI: colostomy at [facility] Last BM: 01/12 RDN Visit (01/13): Patient was sleeping with no family member at bedside. Per RN Lisa, patient ate 100% breakfast and lunch today. Patient does not have any N/V. Per progress note (01/12), IV ABT merrem was already discontinued on Saturday. SNF placement pending. Patient had abdominal incision. Dietary recommendations were discussed with AT RISK PARAPROFESSIONAL Mecca. Estimated Nutritional Needs Based on adjusted body weight 79 kg Energy: 8621-7638 (20-25 kcal/kg) Protein: 79-95 g/d (1.0-1.2 g/kg) - preserve LBM Fluid: per doctor Nutrition Diagnosis 1. Inadequate oral intake related to medical condition as evidenced by documented PO 50%. (Improving- (01/13) PO-100%) 2. Unintentional weight loss related to edema/NPO status as evidenced by documented weight loss of 15# x 10 days. (ongoing) 3. Increased nutrient needs related to increased metabolic demands as evidenced by abdominal surgical wound. Intervention 1. Recommend Freddy BID and vitamin C for wound healing. 2. Recommend continuing CCHO diet. Monitor/Evaluate Goal: Have pt meet at least 75% of estimated needs Monitor: PO intake, Labs, GI function F/U in 2-3 days as high risk 01/15-
--- NOTE | 2019-01-13 15:51 | NUR ---
PT COMPLAINING OF PAIN TO ABDOMEN. TORADOL ADMINISTERED PRN (SEE EMAR).
[2019-01-13 16:39] VITALS: BP 107/65
--- NOTE | 2019-01-13 16:50 | NUR ---
PHYSICAL THERAPY DAILY NOTES CO-SIGN All documentation done by the Global Chief Creative Officer for 01/13/19 has been reviewed. I agree with the documentation. Reviewed/Co-Signed by: Yanick Nice PT Documentation Done by:ROSEANNE SHAFFER PTA
--- NOTE | 2019-01-13 17:20 | NUR ---
PT COLOSTOMY LEAKING ALL OVER ABDOMEN, COLOSTOMY CHANGED, PT SKIN CLEANED AND Z GUARD APPLIED TO PERIANAL AREA AND BUTTOCKS. PT LINENS CHANGED WITH MANAGER INTRANET. PT NOTED TO HAVE RASH THROUGHOUT BODY, BENADRYL ADMINISTERED ORDERED PRN. WILL CONTINUE TO MONITOR. PT REPORTS SOME RELIEF AT THIS TIME FROM TORADOL ADMINISTRATION. SAFETY MAINTAINED.
[2019-01-13 17:23] VITALS: BP 110/63
--- NOTE | 2019-01-13 18:21 | NUR ---
PT COLOSTOMY BAG LEAKING, NEW BAG PLACED. SKIN CLEANED. GOWN CHANGED. PT REPORTS WANTING TO NAP AT THIS TIME. PT REPORTS RELIEF FROM RASH AT THIS TIME. ALL NEEDS TENDED TO THROUGHOUT SHIFT. WILL CONTINUE TO MONITOR AND ENDORSE CARE TO DIRECTOR TITLE.
--- NOTE | 2019-01-13 19:45 | NUR ---
RECIEVED PT FROM NURSE MARTINA GUTIERREZ. PT IS A/O X3, RESPONDS TO VERBAL STIMULI. PT DENIES ANY CHEST PAIN OR SOB AT THIS TIME. PT IS MED SURG. PT PULSES ARE PALAPABLE, EDEMA NOTED IN THE BLE. PT LUNG SOUNDS ARE DIMINSHED BILATERALLY, ON 2L NC. NO RESP DISTRESS NOTED. PT LAST BM WAS 01/13, L SIDE COLOSTOMY, OUTPUT WAS YELLOW/ WATERY, DRESSING LEAKEAGE NOTED, WILL REINFORCE DRESSING. PT HAS MENON CATH , VISIBILE DRAINAGE NOTED, NIKKI COLOR OUTPUT. PT HAS GENERAL WEAKNESS. FALL PERCAUTIONS IN PLACE. PT HAS WOUND TO ABD AREA, WOUND VAC IN PLACE, CDI. OUTPUT WAS 50 ML. PT C/O OF GERBALIZED PAIN WILL MEDICATE PER EMAR. PT HAS IV TO LFA , IV CDI. WILL CONT TO MONITOR, CALL LIGHT WITHIN REACH.
--- NOTE | 2019-01-13 19:59 | NUR ---
PT C/O OF PAIN, GAVE TYLENOL X1. WILL CONT TO MONITOR.
[2019-01-13 20:41] VITALS: BP 113/69
--- NOTE | 2019-01-14 00:30 | NUR ---
PT ASLEEP IN ROOM. BREATHING EVEN AND UNLABORED. NO RESP DISTRESS NOTED. PT EASILY AROUSABLE TO VERBAL STIMULI. WILL CONT TO MONITOR. CALL LIGHT WITHIN REACH.
[2019-01-14 05:39] VITALS: BP 116/61
--- NOTE | 2019-01-14 05:55 | NUR ---
PT SLEPT THROUGH LONG INTERVALS DURING THE NIGHT. PT DENIES ANY CHEST PAIN OR SOB AT THIS TIME. NO RESP DISTRESS NOTED. PT REMAINS ON 2L NC. BED AT LOWEST POSITION. PT COLSOTOMY TO L SIDE CHANGED X1 DURING SHIFT, REDNESS TO THE SURROUNDING AREA AND SENSITIVITY. OUPUT WAS 150 ML, YELLOW/BROWN IN COLOR. PT MENON INTACT , PERINEAL CARE GIVEN, Z JAMA APPLIED TO PERINEAL CARE, OUTPUT 800 ML, NIKKI IN COLOR. PT HAS GENERAL WEAKNESS, FALL PERCAUTIONS IN PLACE. PT MIDLINE ABDOMINAL INSCICION COVERED WITH WOUND VAC, OUTPUT ON WOUND VAC IS 70 ML, RED IN COLOR. PT HAS ERYTHEMA TO BUTTOCK AREA Z GUARD APPLIED. RASH GENERALIZED GAVE BENEDRYL X2 FOR ITCHINESS. PT HAS IV TO LH CDI. PT IS COOPERATIVE WITH SOME NURSING CARE. PT REFUSED BREATHING TREATMENT THROUGH OUT NIGHT. WILL ENORSE CARE TO DAY SHIFT NURSE. WILL CONT TO MONITOR.
[2019-01-14 06:26] LABS: BASOPHIL % 0.4 % (0-2)
[2019-01-14 06:44] LABS: CALCIUM 9.3 mg/dL (8.5-10.1); CARBON DIOXIDE 33.3 mmol/L (21-32); CREATININE SERUM 1.1 mg/dL (0.6-1.0); POTASSIUM SERUM 4.1 mmol/L (3.5-5.1)
--- NOTE | 2019-01-14 07:15 | NUR ---
RECIEVED PT AWAKE IN BED WITH NO C/O PAIN, DISTRESS, OR SOB. A/O X3-4 WITH NO RODRIGUEZ OR DIZZINESS. PT ON 2LPM NC. COLOSTOMY INTACT AND DRAINGIN BROWN STOOL. MENON INTACT AND DRAINING NIKKI COLORED URINE. DENIES ANY PAIN OR BURING. ABD WOUND VAC INTACT AND WORKING PROPERLY AT THIS TIME, NIGHT NURSE REPORTED MACHINE BEEPING D/T LEAKAGE. WILL MONITOR AND CALL YESICA IF NEEDED. RASH STILL NOTED TO WHOLE BODY, WILL MEDICATE BENADRYL PRN. SALINE LOCK TO HEFT HAND IN TACT AND PATNET WITH NO REDNESS OR INFLAMMATION. SAFETY PRECAUTIONS IN PLACE, CALL LIGHT WITHIN REACH, WILL MONITOR.
[2019-01-14 07:37] LABS: PLATELET COUNT 671 x10^3mcL (130-400)
--- NOTE | 2019-01-14 08:15 | NUR ---
PT REPORTS ITCHING FROM BODY RASH, MEDICATED WITH BENEDRYL PER EMAR, WILL REASSESS.
--- NOTE | 2019-01-14 08:15 | NUR ---
PT C/O N/V AND ABD PAIN, MEDICATED WITH ZOFRAN AND TORODAL PER EMAR, WILL REASSESS.
--- NOTE | 2019-01-14 09:41 | NUR ---
COLOSTOMY BAG CLEANED, PREPPED, AND CHANGED D/T LEAKING. SITE NOW CDI. WILL MONITOR.
[2019-01-14 09:49] VITALS: BP 102/64
--- NOTE | 2019-01-14 10:29 | NUR ---
P.T. NOTES PER NURSING HOLD P.T. TREATMETN DUE TO WOUND VAC MANAGEMENT REQUIRED.
--- NOTE | 2019-01-14 11:59 | NUR ---
PT STABLE AT THIS TIME. FAMILY AT BEDSIDE LISTENING TO CATHOLIC MUSIC TOGETHER. NO DISTRESS OR PAIN REPORTED. SAFETY PRECAUTIONS IN PLACE, CALL LIGHT WITHIN REACH, WILL MONITOR.
--- NOTE | 2019-01-14 13:50 | NUR ---
PHYSICAL THERAPY DAILY NOTES CO-SIGN All documentation done by the Search Manager for 01/14/19 has been reviewed. I agree with the documentation. Reviewed/Co-Signed by: Rabia Navarro PT Documentation Done by:ROSEANNE SHAFFER PTA
--- NOTE | 2019-01-14 15:00 | NUR ---
PT STABEL AND HAD NO S/S OF DISTRESS. SAFETY PRECAUTIONS IN PLACE, CALL LIGHT WITHIN REACH, WILL MONITOR.
--- NOTE | 2019-01-14 16:51 | NUR ---
PT C/O ITCHYNESS AND ABD PAIN, MEDICATED WITH BENADRYL AND TORADOL PER EMAR. WILL REASSESS.
[2019-01-14 18:20] VITALS: BP 112/71
--- NOTE | 2019-01-14 18:32 | NUR ---
PT STABLE AT THIS TIME WITH NO C/O PAIN, DISTRESS, OR SOB. TOLERATED ALL CARES WELL. A/O X4 WITH NO RODRIGUEZ OR DIZZINESS. COLOSTOMY CDI, CHANGED THIS MORNING. MENON CATHETER IN PLACE AND DRAINING NIKKI COLORED URINE. DENIES ANY PAIN OR BURNING. ABD WOUND DRESSIND CDI AND WOUND VAC ON SUCTION. 50ML OUTPUT THIS SHIFT. SAFETY PRECAUTIONS IN PLACE, CALL LIGHT WITHIN REACH, WILL ENDORSE CARE TO NIGHT NURSE.
--- NOTE | 2019-01-14 19:42 | NUR ---
RECEIVED PATIENT IN BED AWAKE .ALERT AND ORIENTED X3 WITH NO C/O PAIN AND DISCOMFORT AT THIS TIME. BREATHING EASY AND NONLABOR SATTING AT 97% ON O2 AT 2L VIA NC. EDEMA TRACED TO BLE NOTED, PATIENT ON HEPARIN 5000 UNITS SQ. ABDOMEN ROUND, OBESE AND NONTENDER WITH COLOSTOMT TO LEFT SIDE ABDOMEN INTACT WITH SMALL AMOUNT OF SOFT YELLOW BROWN STOOL. MIDLINE ABDOMEN WITH INCISION AND WOUND VAC IN PLACE. MENON TO GRAVITY WITH NIKKI URINE OUTPUT. IV TO HEPLOCK, FLUSHED WITH NS. WILL CONTINUE TO MONITOR. CALL LIGHT WITHIN REACH.
[2019-01-14 20:51] VITALS: BP 121/72
--- NOTE | 2019-01-15 00:11 | NUR ---
SLEEPING AT THIS TIME, BREATHING EASYA ND NONLABOR ON O2 AT 2L VIA NC.
--- NOTE | 2019-01-15 05:26 | NUR ---
SLEPT AT LONG INTERVALS, CVHECKED AT INTEVALS FOR NEEDS AND SAFETY. NO SIGNIFICANT CHANGES IN CONDITION NOTED.
[2019-01-15 06:14] VITALS: BP 119/62
[2019-01-15 06:36] LABS: BASOPHIL % 0.4 % (0-2)
--- NOTE | 2019-01-15 07:05 | NUR ---
RECEIVED BEDSIDE REPORT FROM [employer] PRINCIPAL NURSE AT THIS TIME. PATIENT RESTING COMFORTABLY IN BED. NO APPARENT DISTRESS OR DISCOMFORT NOTED. [address] AND TOLERATING WELL. BREATHING EVEN AND UNLABORED. NO RESPIRATORY DISTRESS NOTED. NO INDICATION OF CHEST PAIN/PRESSURE AT THIS TIME. IV PATENT AND INTACT. COLOSTOMY BAG IN PLACE DRAINING SOFT YELLOW/ BROWN STOOL. WOUND VAC NOTED TO ABD ON CONTINUOUS SUCTION. MENON CATHETER DRAINING TO GRAVITY NIKKI URINE. ALL QUESTIONS AND CONCERNS ADDRESSED. ALL NEEDS ATTENDED TO. WILL CONTINUE TO MONITOR
[2019-01-15 07:13] LABS: PLATELET COUNT 628 x10^3mcL (130-400)
[2019-01-15 09:55] VITALS: BP 99/62
[2019-01-15 10:26] LABS: CALCIUM 9.9 mg/dL (8.5-10.1); CARBON DIOXIDE 28.5 mmol/L (21-32); CREATININE SERUM 1.2 mg/dL (0.6-1.0); POTASSIUM SERUM 4.3 mmol/L (3.5-5.1)
--- NOTE | 2019-01-15 10:58 | NUR ---
ALL MORNING MEDICATIONS ADMINISTERED. PATIENT TOLERATED WELL. NO ADVERSE EFFECTS NOTED. NO APPARENT DISTRESS OR DISCOMFORT NOTED. ALL NEEDS ATTENDED TO. WILL CONTINUE TO MONITOR
--- NOTE | 2019-01-15 11:35 | NUR ---
PATIENT BLOOD SUGAR 113 AT THIS TIME. NO INSULIN COVERAGE REQUIRED. ALL NEEDS ATTENDED TO. WILL CONTINUE TO MONITOR
--- NOTE | 2019-01-15 13:15 | NUR ---
PATIENT SITTING UP IN BED EATING LUNCH AT THIS TIME. PATIENT TOLERATING DIET WELL. NO APPARENT DISTRESS OR DISCOMFORT. ALL NEEDS ATTENDED TO. WILL CONTINUE TO MONITOR
--- NOTE | 2019-01-15 14:35 | NUR ---
1. Recommend continuing Freddy BID and vitamin C for wound healing. 2. Recommend continuing CCHO diet.
--- NOTE | 2019-01-15 14:35 | NUR ---
Follow-up Nutrition Assessment: 212 T/A AC LIZABETH HR FU Dx: Perforated bowel PMHx: DM, COPD with LUC, breast cancer in remission Labs: (01/14) BUN 20H, CREAT 1.1H (01/15) WBC 12.0H Meds: D50%, D 10%, humulin, lantus, Lipitor, miralax, reglan, senokot, vitamin C, zinc sulfate, Zofran, heparin Diet: CCHO PO Intake: (01/15) breakfast 50%, (01/14) lunch 50%, breakfast 50%, dinner 20% Weights in kg: (01/02) 152 kg, (01/09) 142 kg, (01/10) 133.5 kg, (01/15) 140 kg Skin: Abd incision, R abd wound w/ wound vac, generalized body with rashes Harvey: 14 I/Os: (01/15) 940/ 570 (370) Edema: BLE, BUE edema GI: colostomy at [facility] Last BM: 01/15 RDN Visit (01/15): Patient said that she has fair appetite. Patient has wound vac placed. SNF placement pending. Patient had abdominal incision. Dietary recommendations were discussed with TREATING INSPECTOR Mecca. Spoke with TREATING INSPECTOR about possible interaction of Zinc sulfate with iron absorption considering patient's low HGB level. Patient said that she is consuming Freddy. Estimated Nutritional Needs Based on adjusted body weight 79 kg Energy: 2035-2462 (20-25 kcal/kg) Protein: 79-95 g/d (1.0-1.2 g/kg) - preserve LBM Fluid: per doctor Nutrition Diagnosis 1. Inadequate oral intake related to medical condition as evidenced by documented PO 50%. (ongoing) 2. Increased nutrient needs related to increased metabolic demands as evidenced by abdominal surgical wound. (ongoing) Intervention 1. Recommend continuing Freddy BID and vitamin C for wound healing. 2. Recommend continuing CCHO diet. Monitor/Evaluate Goal: Have pt meet at least 75% of estimated needs Monitor: PO intake, Labs, GI function F/U in 2-3 days as high risk 01/17-
--- NOTE | 2019-01-15 16:30 | NUR ---
PATIENT BLOOD SUGAR 104 AT THIS TIME. NO INSULIN COVERAGE REQUIRED. ALL NEEDS ATTENDED TO. WILL CONTINUE TO MONITOR
--- NOTE | 2019-01-15 18:06 | NUR ---
PATIENT SITTING UP IN BED EATING DINNER AT THIS TIME. PATIENT TOLERATING DIET WELL. NO APPARENT DISTRESS OR DISCOMFORT NOTED. ALL NEEDS ATTENDED TO. WILL CONTINUE TO MONITOR
[2019-01-15 18:29] VITALS: BP 115/65
--- NOTE | 2019-01-15 18:33 | NUR ---
PATIENT RESTING COMFORTABLY IN BED AT THIS TIME. NO APPARENT DISTRESS OR DISCOMFORT NOTED. 2L NC IN PLACE AND TOLERATING WELL. COLOSTOMY BAG INTACT, NO LEAKAGE NOTED. WOUND VAC ATTACHED TO SUCTION. MENON CATHETER DRAINING TO GRAVITY NIKKI COLORED URINE. IV PATENT AND INTACT. ALL QUESTIONS AND CONCERNS ADDRESSED. ALL NEEDS ATTENDED TO. SAFETY PRECAUTIONS MAINTAINED. WILL ENDORSE ALL CARE TO INSECT CONTROL INSPECTOR NURSE
--- NOTE | 2019-01-15 19:53 | NUR ---
RECEIVED PATIENT IN BED AWAKE, ALERT AND ORIENTED WITH NO SIGN OF ACUTERESPIRATORY DISTRESS. BREATHING EASY AND NONLABOR SATTING AT 99% ON O2 AT 2L VIA NC. TRCED EDEMA NOTED TO BLE AND BUE. ABDOMEN ROUND, OBESE AND NON TENDER WITH COLOSTOMY TO LEFT SIDE OF ABDOMEN. RT SIDE MID OF ABDOMEN WITH WOUND VAC SUCTION DRAINING SMALL AMOUNT OF SS. MENON TO GRAVITY WITH NIKKI URINE OUTPUT. IV TO LEFT HAND HEPLCOK, FLUSHED WITH NS. WILL CONTINUE TO MONITOR. CALL LIGHT WITHIN REACH.
[2019-01-15 21:14] VITALS: BP 98/64
--- NOTE | 2019-01-15 23:35 | NUR ---
APPEARS SLEEPING WITH EYES CLOSED AT THIS TIME. BREATHING EASY AND NONLABOR ON O2 AT 2L VIA NC. WILL CONTINUE TO MONITOR.
--- NOTE | 2019-01-16 05:10 | NUR ---
SLEPT AT LONG INTERVALS, DENIES PAIN AND DISCOMFORT THE ENTIRE SHIFT. CHECKED AT INTERVALS FOR NEEDS AND SAFETY.
[2019-01-16 05:40] VITALS: BP 111/65
--- NOTE | 2019-01-16 07:11 | NUR ---
PHYSICAL THERAPY DAILY NOTES CO-SIGN All documentation done by the Gymnastics Instructor for 01/16/19 has been reviewed. I agree with the documentation. Reviewed/Co-Signed by: Rabia Navarro PT Documentation Done by:ROSEANNE SHAFFER PTA FOR 01/15/19
[2019-01-16 07:32] LABS: CALCIUM 9.9 mg/dL (8.5-10.1); CARBON DIOXIDE 30.2 mmol/L (21-32); CHLORIDE SERUM 99 mmol/L (98-107); GFR1 > 60 mL/min; GLUCOSE SERUM 99 mg/dL (74-106); POTASSIUM SERUM 4.8 mmol/L (3.5-5.1); SODIUM SERUM 137 mmol/L (136-145)
--- NOTE | 2019-01-16 07:45 | NUR ---
ALERT AND ORIENTED. HOB SLIGHLTY ELEVATED FOR BREAKFAT. ON02 2L NC. NO RESP DISTRESS NOTED. C/O ABD SURGICAL SITE PAIN. ADMIN TORADOL IV. SL TO LEFT HAND PATENT. WOUND VAC IN PLACE AND DRESSING INTACT. COLOSTOMY EMPTY. MORBIDLY OBESE. ABLE TO TURN AND REPOSITION SELF IN BED. DOES NOT MOVE MUCH. ON AIR MATTRESS. CALL LIGHT WITHIN REACH.
[2019-01-16 08:13] VITALS: BP 109/57
[2019-01-16 10:03] LABS: BASOPHIL % 0.7 % (0-2); PLATELET COUNT 156 x10^3mcL (130-400); RED CELL DISTRIBUTION WIDTH 13.8 % (11.5-14.5)
--- NOTE | 2019-01-16 16:24 | NUR ---
YESICA WOUND CARE NURSE IN TO CHANGE WOUND DRESSING AND COLOSTOMY BAG. PHOTO TAKEN. WOUND LOOKING BETTER. BEEFY RED INSIDE WOUNDS. DRAINS INTACT. NO STOOL IN COLOSTOMY BAG, SKIN AROUND COLOSTOMY SITE RED FROM ADHESIVE. TORADOL ADMIN FOR COMFORT DURING WOUND CARE.
[2019-01-16 16:47] VITALS: BP 101/68
[2019-01-16 17:18] VITALS: BP 109/57
--- NOTE | 2019-01-16 18:42 | NUR ---
ALERT AND ORIENTED. ABLE TO TURN AND REPOSITION SELF. ASSIST PRN WITH PILLOWS. SL TO LH PATENT. TORADOL HELPFUL FOR ABD SURGICAL PAIN. MENON DRAINING TO GRIVITY. VSS. AIR MATTRESS. DOES NOT WANT TO USE KPAD. CALL LIGHT WITH IN REACH. RAYMUNDO IN REACH.
--- NOTE | 2019-01-16 19:22 | NUR ---
RECEIVED PT FROM PREVIOUS SHIFT. AAO. SPEECH CLEAR. ABLE TO MAKE NEEDS KNOWN. MEDSURG. DENIES HEADACHE/DIZZINESS. NO C/O PAIN. S/P SECONDARY ABD WOUND CLOSURE, WOUND VAC NOTED WITH DARK RED DRAINAGE IN COLLECTION CHAMBER. COLOSTOMY TO LLQ, STOMA BEEFY RED, SCANT AMOUNT OF YELLOW DRAINAGE IN BAG. IV TO L HAND CDI, SALINE-LOCKED. CALL LIGHT WITHIN REACH. SAFETY MEASURES IN PLACE. WILL CONTINUE TO MONITOR.
[2019-01-16 22:24] VITALS: BP 94/55
--- NOTE | 2019-01-17 00:45 | NUR ---
PT RESTING IN BED. BREATHING E/U. NO S/S ACUTE DISTRESS. NO SIGNS OF PAIN NOTED. CALL LIGHT WITHIN REACH. SAFETY MEASURES IN PLACE. WILL CONTINUE TO MONITOR.
[2019-01-17 06:02] VITALS: BP 106/62
--- NOTE | 2019-01-17 06:03 | NUR ---
PT HAD RESTFUL NIGHT. DENIES PAIN. BREATHING EVEN AND UNLABORED. NO CHANGES OVERNIGHT. ALL NEEDS MET AND ATTENDED TO. MENON CONTINUES TO DRAIN CLEAR YELLOW URINE. 25CC OF DARK BROWN THICK DRAINAGE IN WOUND VAC. IV SITE CDI, NO ERYTHEMA OR EDEMA. CALL LIGHT WITHIN REACH. WILL ENDORSE CARE TO ONCOMING SHIFT.
--- NOTE | 2019-01-17 07:51 | NUR ---
A+OX3, MENTALLY DELAYED, MEDSURG, PULSES MODERATE AND EQUAL MARY, EDEMA BLE, LUNG SOUNDS DIMINISHED, 2L NC, BOWEL SOUNDS ACTIVE, COLOSTOMY, MENON CATH DRAINING NIKKI URINE, GENERALIZED WEAKNESS, WOUND VAC TO ABD @ CONT 25 MM HG, ERYTHEMA TO BUTTOCKS AND SANJUANA AREA, RASH THROUGHOUT BODY, IV IN L HAND SALINE LOCKED, SITE WNL.
[2019-01-17 09:12] VITALS: BP 105/56
--- NOTE | 2019-01-17 09:48 | NUR ---
PT RESTING IN BED, NO RESPIRATORY DISTRESS NOTED, COMPLAINING OF 8/10 GENERALIZED PAIN, TORADOL IVP GIVEN, CALL LIGHT WITHIN REACH.
--- NOTE | 2019-01-17 12:22 | NUR ---
PT RESTING IN BED, NO RESPIRATORY DISTRESS NOTED, DENIES PAIN, CALL LIGHT WITHIN REACH. PER RT PT REFUSING BREATHING TREATMENTS.
--- NOTE | 2019-01-17 14:36 | NUR ---
PT RESTING IN BED, NO RESPIRATORY DISTRESS NOTED, APPEARS TO BE SLEEPING, PT HAS BED SHEET OVER HEAD, CHEST RISE EVEN AND SYMMETRICAL, CALL LIGHT WITHIN REACH.
--- NOTE | 2019-01-17 15:42 | NUR ---
PT RESTING IN BED, NO RESPIRATORY DISTRESS NOTED, APPEARS TO BE SLEEPING, CALL LIGHT WITHIN REACH.
[2019-01-17 16:30] VITALS: BP 129/63
--- NOTE | 2019-01-17 18:36 | NUR ---
PT COMPLAINING OF 7/10 GENERALIZED PAIN, TORADOL IVP GIVEN, NO RESPRIATORY DISTRESS NOTED. PT COLOSTOMY CAME LOOSE AND LEAKED STOOL ON BED AND PT, PT CLEANED, GOWN AND LINENS CHANGED, STOMA CLEANSED WITH NS AND NEW COLOSTOMY BAG PLACED ON. 25 ML EMPTIED FROM WOUND VAC, CDI. CALL LIGHT WITHIN REACH.
--- NOTE | 2019-01-17 19:14 | NUR ---
ENDORSED CARE TO NIMCO MACK.
--- NOTE | 2019-01-17 19:30 | NUR ---
RECEIVED PT LAYING IN BED, NO ACUTE DISTRESS OBSERVED, DENIES PAIN OR DISCOMFORT. BREATHING ON 2L NC, EVEN AND UNLABORED, DENIES SOB OR DYSPNEA, LUNGS DIM, O2 SAT 96% ABD ROUND AND SOFT WITH ACTIVE BOWEL SOUNDS, DENIES N/V/D. L SIDED COLOSTOMY NOTED, DRAINING BROWN OUTPUT. MENON CATH IN PLACE, DRAINING NIKKI URINE TO GRAVITY. AA/OX4, ABLE TO MAKE NEEDS KNOWN, SPEECH CLEAR AND APPROPRIATE. MED-SURG, NO TELE, NO CP. PULSES PRESENT AND EQUAL THROUGHOUT, TRACE EDEMA TO BLE. GENERALIZED WEAKNESS, UP WITH P.T. MOD ASSIST, ISOGEL MATTRESS IN PLACE. CONTINUOUS WOUND VAC AT 125 MMHG NOTED TO MID ABD INCISION, DRESSING CDI, PURLUENT OUTPUT NOTED TO CHAMBER. REDNESS TO BUTTOCKS AND PERINEUM AREA, Z GAURD PRN. IV TO LH IN PLACE, DRY, PATENT, INTACT, S/L AT THIS TIME, NO PAIN, REDNESS OR SWELLING NOTED WHEN FLUSHED WITH NS. COMFORT AND SAFETY MEASURES IN PLACE. ALL NEEDS ASSESSED AND ATTENDED TO. CALL LIGHT WITHIN REACH. WILL CONTINUE TO MONITOR
[2019-01-18 05:46] VITALS: BP 107/68
--- NOTE | 2019-01-18 05:48 | NUR ---
NO SIGNIFICANT CHANGES TO REPORT, PT COMPLIED WITH NURSING CARE THROUGHOUT THE SHIFT WITH NO ACUTE EVENTS OVERNIGHT. NO ACUTE DISTRESS OBSERVED AT THIS TIME, PT LAYING IN BED, BREATHING EVEN AND UNLABORED. COMFORT AND SAFETY MEASURES MAINTAINED. ALL NEEDS ASSESSED AND ATTENDED TO. CALL LIGHT WITHIN REACH. WILL CONTINUE TO MONITOR AND ENDORSE CARE TO DAY SHIFT NURSE
--- NOTE | 2019-01-18 07:51 | NUR ---
HANDOFF REPORT RECEIVED FROM MARTINA RINALDI. PATIENT DENIES ANY DISCOMFORT. WOUND VAC INTACT. NO LEAK AT 125MMHG. COLOSTOMY ACTIVE WITH SOFT BROWNISH STOOL. CALL RAYMUNDO WITHIN REACH. UPPER SIDERAILS UP.
[2019-01-18 09:19] VITALS: BP 112/78
--- NOTE | 2019-01-18 10:36 | NUR ---
ASLEEP. RR 17. CALL RAYMUNDO WITHIN REACH.
--- NOTE | 2019-01-18 13:49 | NUR ---
" I WANT TO TAKE A NAP ". DENIES ANY DISCOMFORT. WOUND VAC NO LEAK WITH MINIMAL DRAINAGE. CALL RAYMUNDO WITHIN REACH. BED LOW AND LOCKED.
--- NOTE | 2019-01-18 13:52 | NUR ---
Follow up Nutrition Assessment: Renee Huff 212-A Dx:Perofrated bowel Labs: (01/16) Albumin:2.1L, WBC:12.5H, H/H:9.3/28L, BUN:28H Meds: Benafryl, D10%, Elavil, Lantus, Lipitor, Miralax, Protnix, Reglan, Senokot, Toradol, Tyleol, Vitamin C, Zinc sulfate Current Diet: CCHO with Freddy BID PO intake: (01/16) D:75% no PO intake noted since 01/16 Weights: (01/15) 140kg (01/18) unable to weigh due to multiple equipment on bed, including wound vac Skin: sx abd incisions Edema: trace to BLE Last BM:LLE colotomy semi liquid (01/18) Per progress note 01/17, pt with perforated sigmoid diverticulitis with peritonitis with septic shock,s/p sigmoid colostomy resection and sigmoid colostomy. Plan is wound vac and pt is pending placement. During visit, pt was seen laying in bed with wound vac to leg. Pt reports to having a good appetite eating almost 100% of her breakfast this morning, however, c/o emesis when eating Jell-o. Will update compnutrition to exclude Jello from meal trays. Pt with no other GI related issues and had no questions. Will continue to monitor. Estimated Nutritional Needs based on adjusted body weight:79kg Energy: 1580-1975kcal/kg (20-25kcal/kg for maintenance) Protein: 79-95g/day (1.0-1.2g/kg for preservation of LBM) Fluid:1975-2370ml/day (25-30ml/kg for maintenance) or per doctor Nutrition Diagnosis 1. Inadequate oral intake related to medical condition as evidenced by PO 50% (improving) 2. Increased nutrient needs realated to increased metabolic demands as evidenced by abd surgical wound (ongoing) Intervention 1. Recommend continue CCHO diet. 2. Recommend Freddy BID, Vitamin C and zinc for wound healing. Monitor/Evaluate Previous goal: PO intake at least 75% of estimated needs (met) Goal: PO intake at least 75% of estimated needs Monitor: PO intake, Labs, GI function F/U in 3-5 days as moderate risk: 01/21-01/23
--- NOTE | 2019-01-18 13:53 | NUR ---
1. Recommend continue CCHO diet. 2. Recommend Freddy BID, Vitamin C and zinc for wound healing.
--- NOTE | 2019-01-18 15:51 | NUR ---
COLOSTOMY BAG CHANGED. STOMA INVERTED. PERIOSTOMAL SKIN PINKISH RED.
[2019-01-18 16:28] VITALS: BP 109/66
--- NOTE | 2019-01-18 19:10 | NUR ---
RECEIVED PT LAYING IN BED, NO ACUTE DISTRESS OBSERVED, DENIES PAIN OR DISCOMFORT. BREATHING ON 2L NC, EVEN AND UNLABORED, DENIES SOB OR DYSPNEA, LUNGS DIM, O2 SAT 96% ABD ROUND AND SOFT WITH ACTIVE BOWEL SOUNDS, DENIES N/V. L SIDED COLOSTOMY NOTED, LOOSE BROWN OUTPUT. MENON CATH IN PLACE, DRAINING NIKKI URINE TO GRAVITY. AA/OX4, ABLE TO MAKE NEEDS KNOWN, SPEECH CLEAR AND APPROPRIATE. MED-SURG, NO TELE, NO CP. PULSES PRESENT AND EQUAL THROUGHOUT, NO EDEMA. GENERALIZED WEAKNESS, UP WITH P.T. MIN ASSIST, ISOGEL MATTRESS IN PLACE. CONTINUOUS WOUND VAC AT 125 MMHG NOTED TO MID ABD INCISION, DRESSING CDI, PURLUENT OUTPUT NOTED TO CHAMBER. REDNESS TO BUTTOCKS AND PERINEAL AREA, Z GAURD PRN. IV TO LH IN PLACE, DRY, PATENT, INTACT, S/L AT THIS TIME, NO PAIN, REDNESS OR SWELLING NOTED WHEN FLUSHED WITH NS. COMFORT AND SAFETY MEASURES IN PLACE. ALL NEEDS ASSESSED AND ATTENDED TO. CALL LIGHT WITHIN REACH. WILL CONTINUE TO MONITOR
--- NOTE | 2019-01-18 19:17 | NUR ---
HANDOFF REPORT GIVEN TO MARTINA RINALDI. PATIENT RESTING ON RIGHT SIDE AND NOT IN ANY DISTRESS.
[2019-01-18 20:50] VITALS: BP 108/67
[2019-01-19 05:43] VITALS: BP 108/69
[2019-01-19 06:43] LABS: BASOPHIL % 0.8 % (0-2)
[2019-01-19 06:56] LABS: PLATELET COUNT 466 x10^3mcL (130-400)
[2019-01-19 07:04] LABS: CALCIUM 10.4 mg/dL (8.5-10.1); CARBON DIOXIDE 30.3 mmol/L (21-32); CREATININE SERUM 1.1 mg/dL (0.6-1.0); POTASSIUM SERUM 4.8 mmol/L (3.5-5.1)
--- NOTE | 2019-01-19 07:14 | NUR ---
RECEIVED REPORT FROM NIMCO MACK. PATIENT RESTING COMFORTABLY IN BED. IV TO LT HAND IS PATENT AND INTACT. NO REDNESS OR PAIN. PT ON O2 2L NC. NO C/O SOB AND NO DISTRESS NOTED. MENON IN PLACE DRAINING DARK YELLOW URINE. WOUND VAC TO ABDOMINAL INCISION DRAINING SERSANGUINEOUS FLUID. COLOSTOMY TO LLQ WITH MINIMAL DRAINAGE. ALL QUESTIONS AND CONCERNS ADDRESSED.
[2019-01-19 08:37] VITALS: BP 108/69
--- NOTE | 2019-01-19 10:20 | NUR ---
DR BENJAMIN IN TO SEE AND ASSESS PATIENT. ASSESSED WOUND VAC SITE. PATIENT CURRENTLY RESTING IN BED HAVING COLOSTOMY CHANGED AND RECEIVING BED BATH.
[2019-01-19 10:51] VITALS: BP 111/68
--- NOTE | 2019-01-19 12:03 | NUR ---
IN TO ADMINISTER MEDICATION (SEE eMAR). PT RESTING COMFORTABLY IN BED. ALL OTHER NEEDS MET.
--- NOTE | 2019-01-19 16:40 | NUR ---
IN TO ADMINISTER MEDICATION (SEE eMAR). PT RESTING COMFORTABLY IN BED. ALL OTHER NEEDS MET.
[2019-01-19 16:56] VITALS: BP 107/64
--- NOTE | 2019-01-19 18:39 | NUR ---
PATIENT RESTING COMFORTABLY IN BED. ALL NEEDS MET. IV TO LT HAND IS PATENT AND INTACT. NO REDNESS OR PAIN. PT ON O2 2L NC. NO C/O SOB AND NO DISTRESS NOTED. MENON IN PLACE DRAINING NIKKI URINE. WOUND VAC TO ABDOMINAL INCISION IS DRAINING DARK REDDISH BROWN FLUID. COLOSTOMY TO LLQ IS DRAINING MINIMAL BROWN FLUID. WILL ENDORSE ALL CARE TO ONCOMING NURSE.
--- NOTE | 2019-01-19 19:15 | NUR ---
PT RECEIVED FROM THE DAY SHIFT RN. PT HAS BEEN CALM AND COOPERATIVE WITH CARE. WOUND VAC IN PLACE, COLOSTOMY BAG IN PLACE. PT HAS COMPLAINT OF HEADACHE BUT REFUSED PAIN MEDICATION AT THIS TIME. PT STATES PAIN IS 3/10 AND FEELS LIKE PULSATING HEADACHE, SAFETY AND COMFORT MEASURES MAINTAINED, BED IN LOWEST POSITION, CALL LIGHT WITHIN REACH.
[2019-01-19 20:49] VITALS: BP 111/66
--- NOTE | 2019-01-20 00:07 | NUR ---
PT IS RESTING IN BED WITHE EYES CLOSED AT THIS TIME. NO ACUTE DISTRESS NOTED, PT HAS BEEN CALM AND COOPERATIVE WITH CARE, WOUND VAC IN PLACE AND DRAINING SEROUSSANGUINOUS FLUID. COLOSTOMY BAG IN PLACE, DRAINING SOFT BROWN FECAL MATTER. NO S/S OF PAIN NOTED. SAFETY AND COMFORT MEASURES MAINTAINED, BED IN LOWEST POSITION, CALL LIGHT WITHIN REACH. PT IS ON 2L OF O2, NO ACUTE RESP DISTRESS NOTED.
--- NOTE | 2019-01-20 02:13 | NUR ---
PT IS RESTING IN BED WITH EYES CLOSED AT THIS TIME. NO ACUTE DISTRESS NOTED. PT HAS BEEN CALM AND COOPERATIVE WITH CARE. WOUND VAC IS DRAINING SEROUSSANGUINOUS FLUID AND NO LEAKS NOTED. DRESSING IS CDI, MENON IS DRAINING DARK YELLOW URINE AT THIS TIME. SAFETY AND COMFORT MEASURES MAINTAINED, BED IN LOWEST POSITION, CALL LIGHT WITHIN REACH.
--- NOTE | 2019-01-20 04:07 | NUR ---
PT IS RESTING IN BED WITH EYES CLOSED AT THIS TIME. NO ACUTE DISTRESS NOTED. PT HAS BEEN CALM AND COOPERATIVE WITH CARE, WOUND VAC IN PLACE DRAINING SEROUS SANGUINOUS FLUID, MENON IN PLACE AND DRAINING DARK YELLOW URINE. COLOSTOMY BAG IN PLACE ON THE LLQ OF THE ABDOMEN, DRAINING BROWN SOFT FECAL MATTER, SAFETY AND COMFORT MEASURES MAINTAINED, BED IN LOWEST POSITION, CALL LIGHT WITHIN REACH.
--- NOTE | 2019-01-20 05:20 | NUR ---
PT HAS RESTED IN LONG INTERVALS THROUGHOUT THE SHIFT, PT HAS BEEN CALM AND COOPERATIVE WITH CARE, ALERT AND ORIENTED X4, PT HAS NO COMPLAINT OF PAIN AT THIS TIME. COLOSTOMY BAG IN PLACE ON THE LLQ OF THE ABDOMEN DRAINING SOFT BROWN FECAL MATTER, WOUND VAC IN PLACE IN THE MID ABDOMEN DRAINING SEROUSANGUINOUS FLUID, MENON IN PLACE AND DRAINING DARK YELLOW URINE. SAFETY AND COMFORT MEASURES MAINTAINED, BED IN LOWEST POSITION, CALL LIGHT WITHIN REACH. WILL ENDORSE CONTINUITY OF CARE TO THE ONCOMING RN.
[2019-01-20 05:52] VITALS: BP 113/63
--- NOTE | 2019-01-20 07:13 | NUR ---
PHYSICAL THERAPY DAILY NOTES CO-SIGN All documentation done by the Plant Floor Automation Manager for 01/19/19 has been reviewed. I agree with the documentation. Reviewed/Co-Signed by: Rabia Navarro PT Documentation Done by:ROSEANNE SHAFFER PTA
[2019-01-20 07:19] LABS: CALCIUM 10.3 mg/dL (8.5-10.1); CARBON DIOXIDE 28.8 mmol/L (21-32); CREATININE SERUM 1.1 mg/dL (0.6-1.0); POTASSIUM SERUM 4.8 mmol/L (3.5-5.1)
[2019-01-20 07:35] LABS: BASOPHIL % 0.8 % (0-2); RED CELL DISTRIBUTION WIDTH 14.2 % (11.5-14.5)
[2019-01-20 07:43] LABS: PLATELET COUNT 448 x10^3mcL (130-400)
--- NOTE | 2019-01-20 07:45 | NUR ---
RECEIVED PATIENT RESTING IN BED COMFORTABLY A/O X4. DENIES CHEST PAIN, BREATHING EVEN AND UNLABBORED ON O2 2 L/MIN VIA NC, DENIES SOB, NO DISTRESS NOTED. DENIES ANY PAIN AT THIS TIME. IV TO LH H/L INTACT AND PATENT FREE FROM REDNESS AND INFILTRATION. PATIENT HAS SURGICAL INCISION TO MID ABD, DRESSING CDI, WOUND VAC IN PLACE AT 125 mmHg, AND COLOSTOMY TO LLQ ABD WITH SOFT BROWN STOOL. PATIENT IS CALM WITH CARE. INSTRUCTED TO CALL FOR ASSISTANCE IF NEEDED. SAFETY PRECAUTIONS MAINTAINED. WILL MONITOR.
--- NOTE | 2019-01-20 08:15 | NUR ---
COLOSTOMY BAG LEAKING LOOSE DARK BROWN STOOL, REMOVED AND CLEANED SITE. NEW COLOSTOMY BAG PLACED, PATIENT TOLERATED WELL. ALL NEEDS ATTENDED TO, SAFETY PRECAUTIONS MAINTAINED. WILL MONITOR.
--- NOTE | 2019-01-20 09:30 | NUR ---
PATIENT BACK IN BED AFTER WORKING WITH P.T AND NOTED LEAKING TO COLOSTOMY BAG SITE. SITE CLEANED, AND NEW BAG APPLIED. PATIENT TOLERATED WELL. ALL NEEDS ATTENDED TO, SAFETY PRECAUTIONS MAINTAINED. WILL MONITOR.
[2019-01-20 10:20] VITALS: BP 111/65
--- NOTE | 2019-01-20 11:17 | NUR ---
PATIENT RESTING IN BED COMFORTABLY WITH EYES CLOSED, BREATHING EVEN AND UNLABBORED, NO DISTRESS NOTED. SAFETY PRECAUTIONS MAINTAINED. WILL MONITOR.
--- NOTE | 2019-01-20 12:00 | NUR ---
DR. BENJAMIN AT BEDSIDE, REMOVED SUTURES X2 TO SURGICAL INCISION SITE. PER DR. BENJAMIN INCISION SITE IS HEALING WELL. PATIENT TOLERATED WELL. ALL NEEDS ATTENDED TO, SAFETY PRECAUTIONS MAINTAINED. WILL NOTIFY WOUND CARE NURSE PATIENT IS READY TO HAVE WOUND VAC DRESSING CHANGED.
--- NOTE | 2019-01-20 14:15 | NUR ---
WOUND CARE NURSE YESICA AT BEDSIDE. WOUND VAC CHANGED AT THIS TIME, PATIENT TOLERATED WELL. ALL NEEDS ATTENDED TO, SAFETY PRECAUTIONS MAINTAINED. WILL MONITOR.
--- NOTE | 2019-01-20 16:45 | NUR ---
PATIENT SITTING UP IN BED COMFORTABLY TALKING ON TELEPHONE, NO DISTRESS NOTED. ALL NEEDS ATTENDED TO, SAFETY PRECAUTIONS MAINTAINED. WILL MONITOR.
[2019-01-20 17:40] VITALS: BP 108/61
--- NOTE | 2019-01-20 18:50 | NUR ---
PATIENT RESTING IN BED COMFORTABLY WITH EYES CLOSED, BREATHING EVEN AND UNLABBORED, NO DISTRESS NOTED. MENON CATH TO GRAVITY DRAINING YELLOW URINE, TUBING FREE OF KINKS BAG IS OFF FLOOR. COLOSTOMY TO LLQ DRAINING BROWN SOFT STOOL, CDI. WOUND VAC TO ABD AT 125 mmHg WITH DRESSING CDI, CHANGED TODAY WITH NEXT CHANGE DUE ON Saturday01/23/19. PER YESICA RN SHE WILL NOT BE HERE ON SATURDAY SO WOUND VAC CHANGE CAN BE DONE BY RN. NO ACUTE CHANGES NOTED DURING SHIFT. ALL NEEDS ATTENDED TO. SAFETY PRECAUTIONS MAINTAINED. WILL ENDORSE CARE TO ONCOMING NURSE.
--- NOTE | 2019-01-20 19:15 | NUR ---
RECEIVED REPORT FROM DAY SHIFT RN. ALL QUESTIONS AND CONCERNS ADDRESSED. PT IN RM 212 BED B RESTING IN LOW FOWLERS POSITION. PT IS A/O X3, SPEECH IS CLEAR AND FOLLOWS COMMANDS. EYES OPEN SPONTANEOUSLY AND PUPILS REACT BRISK TO LIGHT. CHEST RISE AND FALL EQUAL AND UNLABORED. PT IS ON 2LPM VIA NC. PT HAS ABD WOUND VAC AND CHOLOSTOMY TO LLQ, PATENT AND DRAINING TO BAG. BAG SECURE AND PATENT. VS STABLE. NO SIGNS OR COMPLAINTS OF ACUTE DISTRESS. CALL LIGHT WITH IN REACH.
[2019-01-20 21:05] VITALS: BP 118/72
[2019-01-21 06:07] VITALS: BP 107/74
[2019-01-21 06:17] LABS: BASOPHIL % 1.2 % (0-2); CALCIUM 10.5 mg/dL (8.5-10.1); CARBON DIOXIDE 30.3 mmol/L (21-32); CREATININE SERUM 1.2 mg/dL (0.6-1.0); POTASSIUM SERUM 4.9 mmol/L (3.5-5.1); RED CELL DISTRIBUTION WIDTH 14.2 % (11.5-14.5)
[2019-01-21 07:17] LABS: PLATELET COUNT 433 x10^3mcL (130-400)
--- NOTE | 2019-01-21 07:25 | NUR ---
RECEIVED PATIENT AWAKE/ALERT IN BED CALM. NO DISTRESS NOTED. PATIENT C/O TIRED TODAY. NO PAIN AT THIS TIME. M/S PATIENT. IV TO LH INTACT AND SL. POC EXPLAINED. CALL LIGHT WITHIN REACH.
[2019-01-21 08:32] VITALS: BP 130/70
--- NOTE | 2019-01-21 09:50 | NUR ---
PATIENT RESTING IN BED, LT COLOSTOMY LEAKING, NOTED 300ML SOFT BROWN STOOL. REMOVED CLEAN AND PATTED DRY, RE-APPLIED NEW COLOSTOMY BAG, STOMA PROLAPSE AND ERYTHEMA ALONG THE EDGES. ALL PO MEDS ADMINISTERED W/O PROBLEM. HEPARIN SQ ADMINISTERED TO LT ARM PER PATIENT. ABDOMEN WOUND VAC INTACT AND SEAL NOTED. NEEDS MET. CALL LIGHT WITHIN REACH.
--- NOTE | 2019-01-21 10:14 | NUR ---
CHART REVIEWED PATIENT HAS BEEN HERE >30 DAYS AND MRSA SCREEN WILL NEED TO BE DONE PRIOR TO DISCHARGE. SPOKE WITH ANGELINA, CHARGE NURSE, AND ASKED HER TO HAVE THE NURSE COLLECT SPECIMEN THE DAY THE PAITENT IS TRANSFER OUT.
--- NOTE | 2019-01-21 12:01 | NUR ---
PATIENT ABLE TO REPOSITION SELF, DUE MED GIVEN. PLACE PILLOW BEHIND PT BACK PER REQUEST, BS 133 NO COVERAGE NEEDED. CALL LIGHT WITHIN REACH.
--- NOTE | 2019-01-21 14:10 | NUR ---
PT C/O OF PAIN TO INCISION SITE, PAIN SCALE 6/10, TORADOL 15 MG VIA IVP ADMINISTERED.
--- NOTE | 2019-01-21 14:52 | NUR ---
PATIENT RESTING IN BED ON BREATHING TREATMENT, RT AT BEDSIDE. REMOVED COLOSTOMY DUE TO LEAKING, SCANT AMT BROWN STOOL NOTED. CLEAN SKIN WITH SKIN PREP AND REPLACE NEW COLOSTOMY BAG. ASSISTING CHANGING PT GOWN. NEEDS MET. CALL LIGHT WITHIN REACH. ABD WOUND WITH WOUND VAC INTACT. NO LEAKING NOTED.
--- NOTE | 2019-01-21 17:01 | NUR ---
ADMINISTERED REGLAN PO AND BS 124 NO COVERAGE NEEDED; PER PT DON'T NEED ANYTHING AT THIS TIME. CALL LIGHT WITHIN REACH.
[2019-01-21 17:10] VITALS: BP 115/63
--- NOTE | 2019-01-21 18:34 | NUR ---
PATIENT REPORT AFTER EATING DINNER NOTED COLOSTOMY LEAKING, REMOVED OLD COLOSTOMY AND CLEAN SITE PATTED DRY, APPLIED NEW COLOSTOMY BAG. NO GAS NOTED. SCANT AMT STOOL IN BAG NOTED. NEEDS MET. CONT TO MONITOR.
--- NOTE | 2019-01-21 19:33 | NUR ---
RECEIVED PT FROM DAY SHIFT RN. PT AAOX4. DENIES RODRIGUEZ/DIZZINESS. DIMININSHED LUNG SOUNDS, PT ON NC 1L/MIN. RT PROTOCOL. PT DENIES CHEST PAIN/PRESSURE. PT HAS A COLOSTOMY BAG TO LLQ. WOUND VAC TO ABD. PT HAS A F/C IN PLACE DRAINING YELLOW URINE. IV LH PATENT. NO SIGNS OF AUCTE DISTRESS NOTED. CALL BUTTON WITHIN REACH. SAFETY PRECAUTIONS IN PLACE. WILL CONTINUE TO MONITOR.
[2019-01-21 20:24] VITALS: BP 108/67
--- NOTE | 2019-01-22 00:45 | NUR ---
PT RESTING. BREATHING EVEN AND UNLABORED. NO SIGNS OF DISTRESS NOTED. CALL BUTTON WITHIN REACH. SAFETY PRECAUTIONS IN PLACE. WILL CONTINUE TO MONITOR.
--- NOTE | 2019-01-22 04:46 | NUR ---
PT SLEPT MOST OF THE NIGHT WITH NO SIGNS OF DISTRESS. PT BREATHING EVEN AND UNLABORED ON NC 1L/MIN. RT PROTOCOL. PT COLOSTOMY LLQ. WOUND VAC TO ABD IN PLACE. MEDICATED PER EMAR. PT ABLE TO TURN AND REPOSITION, ASSISTED NEEDED. F/C IN PLACE, DRAINING YELLOW URINE. CALL BUTTON WITHIN REACH. SAFETY PRECAUTIONS IN PLACE. WILL CONTINUE TO MONITOR AND ENDORSE CARE TO DAY SHIFT RN.
[2019-01-22 06:04] VITALS: BP 115/69
[2019-01-22 06:24] LABS: BASOPHIL % 1.1 % (0-2); PLATELET COUNT 399 x10^3mcL (130-400)
[2019-01-22 06:37] LABS: CALCIUM 9.5 mg/dL (8.5-10.1); CARBON DIOXIDE 28.5 mmol/L (21-32); CREATININE SERUM 1.1 mg/dL (0.6-1.0); POTASSIUM SERUM 4.6 mmol/L (3.5-5.1)
[2019-01-22 07:10] LABS: RED CELL DISTRIBUTION WIDTH 14.6 % (11.5-14.5)
--- NOTE | 2019-01-22 07:10 | NUR ---
RECEIVED PT FROM CANDLE MOLDER MACHINE RN. Moose/OTILIA. MED SURG. DENIES CHEST PAIN/PRESSURE. RESPIRATIONS EQUAL AND UNLABORED ON 1L NC. DENIES SOB AT THIS TIME. COLOSTOMY TO LLQ DRAINING DARK BROWN STOOL, SECURED WITH TEGADERM AND FOAM TAPE. NO LEAKING NOTED. MEDIAL ABDOMINAL WOUND WITH WOUND VAC IN PLACE, DRESSING CDI. IV TO LH SALINE LOCKED. NO REDNESS OR SWELLING NOTED. WILL CONTINUE TO MONITOR. CALL LIGHT IN REACH. BED IN LOWEST POSITION.
--- NOTE | 2019-01-22 07:29 | NUR ---
PT AWAKE. NO SIGNS OF DISTRESS NOTED. ENDORSED CARE TO DAY SHIFT RN, ALL QUESTIONS ADDRESSED.
--- NOTE | 2019-01-22 08:43 | NUR ---
PT SITTING UP IN BED. COLOSTOMY TO LLQ LEAKING BROWN STOOL. PLACED NEW COLOSTOMY ON PT. CLEANSED STOMA SITE WITH NS. APPLIED TEGADERM AND FOAM TAPE. WILL CONTINUE TO MONITOR. CALL LIGHT IN REACH. BED IN LOWEST POSITION.
[2019-01-22 09:12] VITALS: BP 100/60
--- NOTE | 2019-01-22 09:57 | NUR ---
PT IN BED RESTING. PT WORKED WITH PHYSICAL THERAPIST. PT AMBULATED IN [place] TOLERATED WELL. NO ACUTE RESP DISTRESS NOTED ON RA. PT DENIES ANY SOB AT THIS TIME. GIVEN PO MEDS. TOLERATED WELL. PT C/O PAIN TO ABDOMEN. WILL MEDICATED PER EMAR. WILL CONTINUE TO MONITOR. CALL LIGHT IN REACH. BED IN LOWEST POSITION.
--- NOTE | 2019-01-22 12:08 | NUR ---
1. Recommend continuing Freddy BID and vitamin C for wound healing. 2. Recommend continuing CCHO diet.
--- NOTE | 2019-01-22 12:08 | NUR ---
Follow-up Nutrition Assessment: 212 T/A LIZABETH SHEN HR FU Dx: Perforated bowel PMHx: DM, COPD with LUC, breast cancer in remission Labs: (01/22) BUN 22H, CREAT 1.1H, BG 124H Meds: D50%, D 10%, humulin, lantus, Lipitor, miralax, reglan, senokot, vitamin C, zinc sulfate, Zofran, heparin [facility] Intake: (01/22) breakfast 80%, (01/19) 85% breakfast (01/15) breakfast 50%, Weights in kg: (01/02) 152 kg, (01/09) 142 kg, (01/10) 133.5 kg, (01/15) 140 kg Skin: Abd incision, R abd wound w/ wound vac, generalized body with rashes Harvey: 16 I/Os: (01/22) 700/ 1750 (-1050) Edema: none GI: colostomy at [facility] Last BM: 01/21 RDN Visit (01/22): Per Progress note (01/22), Patient is tolerating breakfast and is working with PT, Awaiting SNF placement for continueD PT and wound care for wound vac .l Dr Chapman removed last if the rentention sutures on 01/21/2019. Patient was alert and oriented and said that her appetite is good and she is getting transferred today. Patient said she has been drinking Freddy and consuming Vitamin C. Estimated Nutritional Needs Based on adjusted body weight 79 kg Energy: 8042-5451 (20-25 kcal/kg) Protein: 79-95 g/d (1.0-1.2 g/kg) - preserve LBM Fluid: per doctor Nutrition Diagnosis 1. Inadequate oral intake related to medical condition as evidenced by documented PO 50%. (improving- PO-80%) 2. Increased nutrient needs related to increased metabolic demands as evidenced by abdominal surgical wound. (ongoing) Intervention 1. Recommend continuing Freddy BID and vitamin C for wound healing. 2. Recommend continuing CCHO diet. Monitor/Evaluate Goal: Have pt meet at least 75% of estimated needs Monitor: PO intake, Labs, GI function F/U in 3-5 days as moderate risk 01/25-
--- NOTE | 2019-01-22 12:15 | NUR ---
PT SITTING UP IN BED. NO ACUTE RESP DISTRESS NOTED ON RA. PT DENIES ANY SOB AT THIS TIME. COLOSTOMY TO LLQ IN PLACE, NO LEAKING NOTED, DRAINING DARK BROWN. PT DENIES ANY PAIN AT THIS TIME. GIVEN PO MEDS. TOLERATED WELL. BLOOD SUGAR CHECKED WAS 133. NO COVERAGE NEEDED. WILL CONTINUE TO MONITOR. CALL LIGHT IN REACH. BED IN LOWEST POSITION.
--- NOTE | 2019-01-22 15:04 | NUR ---
PHYSICAL THERAPY DAILY NOTES CO-SIGN All documentation done by the Historic Interpreter for 01/22/19 has been reviewed. I agree with the documentation. Reviewed/Co-Signed by: Rabia Navarro PT Documentation Done by:ROSEANNE SHAFFER PTA
[2019-01-22 16:16] VITALS: BP 114/75
--- NOTE | 2019-01-22 17:51 | NUR ---
PT SITTING UP IN BED. NO ACUTE RESP DISTRESS NOTED ON RA. PT DENIES SOB AT THIS TIME. GIVEN PO MEDS. TOLERATED WELL. BLOOD SUGAR CHECKED WAS 113. NO COVERAGE NEEDED. PT EATING DINNER. TOLERATING WELL. MENON CARE PROVIDED. NEW STAT LOCK PLACED ON RIGHT THIGH. MENON DRAINING LIGHT YELLOW URINE. WILL CONTINUE TO MONITOR. CALL LIGHT IN REACH. BED IN LOWEST POSITION.
--- NOTE | 2019-01-22 19:10 | NUR ---
PT RECEIVED A/O X4, ABLE TO MAKE NEEDS KNOWN. MED-SURG, DENIES ANY CP/PRESSURE. BREATHING IS EVEN AND UNLABORED ON RA, NO RESP DISTRESS NOTED. ABD SOFT AND OBESE, BOWEL TONES ACTIVE X4 QUAD, DENIES N/V. COLOSTOMY TO LLQ DRAINING TO GRAVITY, WITH DARK GREEN OUTPUT NOTED. MENON CATH SECURED AND IN PLACE DRAINING TO GRAVITY, YELLOW URINE NOTED. GENERALIZED WEAKNESS. WOUND VAC NOTED TO MIDLINE ABD INCISION, CDI. PT DENIES HAVING ANY PAIN AT THIS TIME. SL TO LH, PATENT AND INTACT, SITE WNL. NO ACUTE DISTRESS NOTED. BED IN LOWEST SETTING, SIDE RAILS UP X2, CALL LIGHT WITHIN REACH. WILL CONT TO MONITOR.
[2019-01-22 21:38] VITALS: Ht 160 cm; Wt 133.9 kg
[2019-01-23 06:18] LABS: PLATELET COUNT 388 x10^3mcL (130-400); RED CELL DISTRIBUTION WIDTH 14.4 % (11.5-14.5)
[2019-01-23 06:27] VITALS: BP 104/69
[2019-01-23 06:53] LABS: CALCIUM 9.4 mg/dL (8.5-10.1); CARBON DIOXIDE 28.7 mmol/L (21-32); CREATININE SERUM 1.2 mg/dL (0.6-1.0); POTASSIUM SERUM 4.5 mmol/L (3.5-5.1)
--- NOTE | 2019-01-23 07:33 | NUR ---
PT SLEPT WELL THROUGHOUT THE EVENING. BREATHING IS EVEN AND UNLABORED, NO RESP DISTRESS NOTED. PT C/O 12/01 ABD PAIN, PRN TORADOL IVP GIVEN ORDERED. CONTINUOUS WOUND VAC IN PLACE TO ABD AT 125 MMHG, COLOSTOMY IN PLACE TO LLQ. MENON DRAINING TO GRAVITY. NO ACUTE CHANGES ENCOUNTERED DURING SHIFT. ALL NEEDS MET AND ANTICIPATED. PT COMPLIANT WITH NURSING CARE. SL TO LFA, PATENT AND INTACT, SITE WNL. CALL LIGHT WITHIN REACH. CONTINUITY OF CARE ENDORSED TO AM NURSE. ALL QUESTIONS AND CONCERNS ADDRESSED.
--- NOTE | 2019-01-23 08:00 | NUR ---
RECEIVED PATIENT FROM PREVIOUS SHIFT. MARK ALONZOS BEEN ALERT AN ORIENTED TIMES FOUR. PATIENT WITH DIMINSIHED BREATH SOUNDS AND HAS REFUSED THE BI PAP AT NIGHT AND JF OCONNOR OF A C PAP AT HOME. SHE IS GROSSLY OBESE AND HAS A DISTENDED ABDOMEN AND IS [facility] WOUND VAC IN PLACE AND OUTPUT IS NOTED VIA THT PUMP AND APPEARS SEROUS SANG AT THIS TIME. PATIENT AHS MENON TO GRAVITY AND URINE IS NIKKI IN COLOR. SHE HAS THE COLOSTOMY THAT IS DARK BROWN IN COLOR AND HAS BEEN SEMI LIQUID. SHE IS ON MIRALAX, SENOKOT AND HAS BEEN COMPLIANT WITH MEDICATION. PATIENT HAS BEEN NOTED TO HAVE SOME TEARFULNESS AT TIMES AND ON AND OFF EMOTIONAL BUT IS COOPERATIVE AND SEEMS SHE HAS BEEN OVERWHELMED WITH NEWS SHE RECEIVED IN [facility] PRIOR TO MOVING TO [place] OF [facility]. SHE WANTS AOTHER OPINION AND WANTS TO BE WITH FAMILY. SHE IS FOR TRANSFER TO [facility] AND SHE IS TO BE REHABED THERE. IV INTACT AND PATIENT HAS RUTURED THE BAG OF THE COLOSTOMY AND CHANGED AND REINFORCED THE DRESSING INDICATED. NEEDED TO CUT AWAY SOME OF THE WOUND VAC DRESSING DUE TO SOILING AND REMAINS INTACT AND TO BE CHANGED TODAY BY THE WOUND CARE NURSE. STOMA IS INVERTED AND SHAPED MORE LIKE A SLIT AND HAS BEEN AN ISSUE TO MAINTAIN THE SEAL. THE SKIN IS MILDLY RED AND CLEANSED AND REPPLIED WITH THE PROTECTANT INDICATED. VITALS AT THIS TIME AT97.2, 84, 20, 104/69, 91%. PATIENT HAS NOTED BLOOD SUGAR THIS AM AT 192 WTIH COVERAGE. SHE HAS WBC AT 11.2, H AND H AT 9.6/28, AND BUN AT 22.0 WITH CREAITINES AT 1.2. PATIENT RECEIVED TORADOL THIS AM AT 725 AND EFFECTIVE IN RELIEVING PAIN AT THIS TIME.
--- NOTE | 2019-01-23 09:30 | NUR ---
OOB WITH PT AND DID VERY WELL WITH AMBULATION. SO FAR THE COLOSTOMY BAG REMAINS INTACT. WILL CONTINUE TO MONITOR.
[2019-01-23 09:39] VITALS: BP 100/59
[2019-01-23] MEDS ORDERED: IBUPROFEN400 MG PO (10:29)
[2019-01-23 10:36] VITALS: BP 100/59
--- NOTE | 2019-01-23 14:11 | NUR ---
MADE THREE CONSECUTIVE CALLS AND ALL BUSY AT THIS TIME. ATTEMPTING TO CALL IN REPORT TO THE STAFF AT [facility] AND WILL CONTINUE TO ATTEMPT TO CALL.
--- NOTE | 2019-01-23 14:35 | NUR ---
PHYSICAL THERAPY DAILY NOTES CO-SIGN All documentation done by the Motor And Generator Brush Maker for 01/23/19 has been reviewed. I agree with the documentation. Reviewed/Co-Signed by: Rabia Navarro PT Documentation Done by:EDMUND CRONIN PTA
--- NOTE | 2019-01-23 15:03 | NUR ---
CALLED REPORT TO STAFF AT [facility] AND THE ARE EXPECTING HER. HER BLOOD SUGAR AT 1130 AT 117 AND MARK HAS HAD HER COLOSTOMY BAG CHANGED AND THE WOUND VAC CLAMPED AND THE MENON REMAINS IN PLACE FOR TRANSFER. IV WAS REMOVED AND PATIENT IN NO ACUTE DISTRESS AT TIME OF TRANSFER. PLAN IS FOR REHAB AND THEN AT SOME POINT SHE IS TO RETURN TO THE HOSPITAL FOR TAKE DOWN OF THE COLOSTOMY.
--- NOTE | 2019-01-23 16:27 | NUR ---
PATIENT WAS PICKED UP JUST SHORTLY AFTER STAFF CHANGE THE COLOSTOMY FOR THE SECOND TIME. THE WOUND VAC WAS CLAMPED AND THE DRESSING REINFORCED. UNABLE TO GET PICTURES PRIOR TO DISCHARGE THIS WAS TO BE DONE WHEN THE WOUND CARE NURSE CHANGED THE WOUND VAC FOAM AND DRESSING. SHE DID NOT ARRIVE IN TIME TO DO THIS AND PATIENT HAS BEEN WITH THE DRESSING IN PLACE AND DUE TO CHANGE TODAY. THE PATIENT HAS THE FOAM IN THE WOUND BASE AND OUTPUT IS SEROUS AND MINIMAL AMOUNT FOR THE SIZE OF THE WOUND. NO REDNESS TO THIS AREA NOTED. SHE HAS SOME EXCORIATION TO THE COLOSTOMY SITE AND THE SURROUNDING TISSUE DUE TO LEAKING AND POOR FIT OF THE APPLIANCE. REDRESSED AND CLEANSED THE AREA AND ATTEMPTED AGAIN TO FIT WHERE THE SKIN WOULD NOT BE EFFECTIVE. REINFORCE THE APPLIANCE AND PATIENT TOLERATED WELL. DISCHARGE TO AMBULANCE WITH ALL BELONGINGS. GAVE REPORT JUST POST HER LEAVING THE FLOOR UNABLE TO GET THROUGH DUE TO LINE WAS BUSY. PATIENT IS TO CONTINUE THE WOUND VAC AT THE FACITIY INDICATED.
== END 2019-01-23 14:35 | DRG 710 ==
LOC: ED 16:06 → DU 19:14 → IC 19:14 → MU 19:14 → IC 12-18 11:55 → DU 12-23 16:24 → MU 01-13 14:12
PROVIDERS: Emergency Medicine; General Practice; Internal Medicine; Internal Medicine Infectious Disease; Internal Medicine Nephrology; Surgery; ADMIT Internal Medicine
PROC: 0D1N0Z4 Bypass Sigmoid Colon to Cutaneous, Open Approach (ICD-10-PCS; 2018-12-18)
PROC: 0DBN0ZZ Excision of Sigmoid Colon, Open Approach (ICD-10-PCS; principal; 2018-12-18 13:30)
PROC: 05HM33Z Insertion of Infusion Device into Right Internal Jugular Vein, Percutaneous Approach (ICD-10-PCS; 2018-12-19)
PROC: 05HN33Z Insertion of Infusion Device into Left Internal Jugular Vein, Percutaneous Approach (ICD-10-PCS; 2018-12-19)
PROC: 5A1945Z Respiratory Ventilation, 24-96 Consecutive Hours (ICD-10-PCS; 2018-12-20)
PROC: 0BH17EZ Insertion of Endotracheal Airway into Trachea, Via Natural or Artificial Opening (ICD-10-PCS; 2018-12-20)
PROC: 0DB68ZX Excision of Stomach, Via Natural or Artificial Opening Endoscopic, Diagnostic (ICD-10-PCS; 2018-12-29)
PROC: 0JQ80ZZ Repair Abdomen Subcutaneous Tissue and Fascia, Open Approach (ICD-10-PCS; 2019-01-08)
DX: A41.9 Sepsis, unspecified organism (principal); N17.0 Acute kidney failure with tubular necrosis; J96.21 Acute and chronic respiratory failure with hypoxia; R65.21 Severe sepsis with septic shock; K65.0 Generalized (acute) peritonitis; K31.84 Gastroparesis; E11.43 Type 2 diabetes mellitus with diabetic autonomic (poly)neuropathy; E66.01 Morbid (severe) obesity due to excess calories; E87.2 Acidosis; K31.1 Adult hypertrophic pyloric stenosis; K57.20 Diverticulitis of large intestine with perforation and abscess without bleeding; E11.65 Type 2 diabetes mellitus with hyperglycemia; E87.5 Hyperkalemia; J44.9 Chronic obstructive pulmonary disease, unspecified; Z68.43 Body mass index [BMI] 50.0-59.9, adult; R80.9 Proteinuria, unspecified; E86.0 Dehydration; G47.33 Obstructive sleep apnea (adult) (pediatric); Z79.4 Long term (current) use of insulin; Z85.3 Personal history of malignant neoplasm of breast; Z79.1 Long term (current) use of non-steroidal anti-inflammatories (NSAID); Z53.29 Procedure and treatment not carried out because of patient's decision for other reasons
CPT/HCPCS: 36556; 36600; 43235; 82962; 83880; 94150; 97110-GP; 97116-GP; 97530-GP; A4628; C1758; C1769; G0378; J0330; J0610; J0696; J1170; J1200; J1610; J1642; J1644; J1815; J1885; J1940; J2060; J2185 ×2; J2250; J2270; J2310; J2405; J2543; J2704; J2765; J2920; J3010; J3370; J3475; J3490; J7030; J7040; J7042; J7050; J7070; J7120; J7131; J7620; J7626; J8597; P9047; Q0092; Q0162; Q0163; Q9967